=== PATIENT | male | born 1945 | race Hispanic/Latino ===

== ENCOUNTER 2018-04-27 15:02 | Inpatient (IN) | payer MEDICARE ==
[2018-04-27 16:13] LABS: BASO % 0.8 % (0.0-2.0); EOS # 0.1 K/uL (0.0-0.7); EOS % 1.4 % (0.0-4.0); HEMOGLOBIN 13.5 g/dL (12.0-18.0); LYMPH # 0.8 K/uL (1.0-4.3); MEAN CELL VOLUME 78.2 fl (80.0-94.0); MEAN CORPUSCULAR HEMOGLOBIN 26.2 pg (27.0-31.0); MEAN CORPUSCULAR HGB CONC 33.5 g/dL (33.0-37.0); MEAN PLATELET VOLUME 9.4 fl (7.2-11.7); MONO # 0.7 K/uL (0.0-0.8); MONO % 11.6 % (0.0-10.0); NEUT # 4.6 K/uL (1.8-7.0); NEUT % 73.2 % (50.0-75.0); NRBC % 0.1 % (0.0-0.0); RBC 5.16 Mil/uL (4.40-5.90); RED CELL DISTRIBUTION WIDTH 16.7 % (11.5-14.5); WHITE BLOOD COUNT 6.3 K/uL (4.8-10.8)
[2018-04-27 16:22] LABS: INR 1.3; PROTHROMBIN TIME 14.7 Seconds (9.8-13.1)
[2018-04-27 16:25] LABS: PARTIAL THROMBOPLASTIN TIME 32.2 Seconds (25.6-37.1)
[2018-04-27 16:31] LABS: URINE AMORPHOUS SEDIMENT RARE /ul (<OCC); URINE BACTERIA RARE (<OCC); URINE BILIRUBIN SMALL (NEGATIVE); URINE BLOOD NEGATIVE (NEGATIVE); URINE CALCIUM OXALATE CRYSTALS FEW /hpf (<OCC); URINE CLARITY SLIGHTY-CLOUDY (Clear); URINE COLOR AMBER (YELLOW); URINE GLUCOSE (UA) NEG (Normal); URINE LEUKOCYTE ESTERASE NEG Leu/uL (Negative); URINE PROTEIN NEGATIVE (NEGATIVE)
[2018-04-27 16:33] LABS: ALB/GLOB RATIO 0.8 (1.0-2.1); ALBUMIN 3.6 g/dL (3.5-5.0); ALT/SGPT 131 U/L (21-72); AST/SGOT 148 U/L (17-59); BLOOD UREA NITROGEN 16 mg/dl (9-20); CALCIUM 9.5 mg/dL (8.4-10.2); GFR NON-AFRICAN AMERICAN > 60; LIPASE 127 U/L (23-300)
--- NOTE | 2018-04-27 17:02 | ED PDOC ---
HPI: Male Pain Time Seen by Provider: 04/27/18 15:18 Chief Complaint (Nursing): Abdominal Pain Chief Complaint (Provider): Brown Urine History Per: Patient History/Exam Limitations: no limitations Onset/Duration Of Symptoms: Days (x1 week) Current Symptoms Are (Timing): Still Present Additional Complaint(s): 73 year old male presenting for evaluation of brown urine x1 week. Patient was sent by Dr. Goss for increasing LFTs. Patient was discharged from hospital l ast month after being admitted for acute cholecystitis. No surgical intervention was performed at the time. Patient denies any fevers, chills, vomiting, abdominal pain, diarrhea, dysuria, or hematuria. Past Medical History Reviewed: Historical Data, Nursing Documentation, Vital Signs Vital Signs: Last Vital Signs Temp 98.2 F 04/27/18 15:10 Pulse 101 H 04/27/18 15:10 Resp 20 04/27/18 15:10 BP 137/75 04/27/18 15:10 Pulse Ox 98 04/27/18 15:10 - Medical History PMH: HTN, Hypercholesterolemia, Hyperlipidemia Denies: Chronic Kidney Disease - Surgical History Surgical History: Cholecystectomy - Family History Family History: States: Unknown Family Hx - Home Medications Home Medications: Ambulatory Orders Medication Instructions Recorded Aspirin [Ecotrin] 81 mg PO DAILY 03/25/18 Atorvastatin [Lipitor] 20 mg PO HS 03/25/18 Carvedilol [Coreg] 6.25 mg PO Q12 03/25/18 Clopidogrel [Plavix] 75 mg PO DAILY 03/25/18 Glipizide [Glipizide ER] 10 mg PO DAILY 03/25/18 Lisinopril/Hydrochlorothiazide 1 tab PO DAILY 03/25/18 [Lisinopril-Hctz 20-12.5 mg Tab] amLODIPine [Norvasc] 5 mg PO DAILY 03/25/18 metFORMIN [glucOPHAGE] 850 mg PO BID 03/25/18 - Allergies Allergies/Adverse Reactions: Allergies Allergy/AdvReac Type Severity Reaction Status Date / Time No Known Allergies Allergy Verified 04/27/18 15:09 Review of Systems ROS Statement: Except As Marked, All Systems Reviewed And Found Negative Constitutional: Negative for: Fever, Chills Gastrointestinal: Negative for: Nausea, Vomiting, Abdominal Pain, Diarrhea Genitourinary Male: Positive for: Other (brown urine). Negative for: Dysuria, Hematuria Physical Exam - Reviewed Nursing Documentation Reviewed: Yes Vital Signs Reviewed: Yes - Physical Exam Appears: Positive for: Non-toxic, No Acute Distress Head Exam: Positive for: ATRAUMATIC, NORMAL INSPECTION, NORMOCEPHALIC Skin: Positive for: Normal Color, Warm, Dry. Negative for: Rash Eye Exam: Positive for: EOMI, Normal appearance, PERRL ENT: Positive for: Normal ENT Inspection Neck: Positive for: Normal, Painless ROM, Supple Cardiovascular/Chest: Positive for: Regular Rate, Rhythm. Negative for: Murmur Respiratory: Positive for: Normal Breath Sounds. Negative for: Respiratory Distress Gastrointestinal/Abdominal: Positive for: Normal Exam, Soft. Negative for: Tenderness Back: Positive for: Normal Inspection. Negative for: L CVA Tenderness, R CVA Tenderness, Vertebral Tenderness Extremity: Positive for: Normal ROM. Negative for: Deformity Neurologic/Psych: Positive for: Alert, Oriented. Negative for: Motor/Sensory Deficits - Laboratory Results Result Diagrams: 04/27/18 16:06 04/27/18 16:06 - ECG O2 Sat by Pulse Oximetry: 98 (RA) Pulse Ox Interpretation: Normal Medical Decision Making Medical Decision Making: Plan: -EKG -CMP -Urine dip -CBC -PTT/PT -CXR -Glucose, POC -Blood culture -Urine culture -Urinalysis -US Abdomen -Reevaluation Scribe Attestation: Documented by Irineo Mulligan, acting as a scribe for Daphney Spaulding MD. Provider Scribe Attestation: All medical record entries made by the Scribe were at my direction and personally dictated by me. I have reviewed the chart and agree that the record accurately reflects my personal performance of the history, physical exam, medical decision making, and the department course for this patient. I have also personally directed, reviewed, and agree with the discharge instructions and disposition. Time: 1658 -- Spoke to Dr. Walters who recommends NPO and antibiotics. Time: 1901 -- Spoke to Dr. Novoa at this time. Provider will talk to surgical endoscopist. Pt states his Lens Block Gauger is Dr. Bashir. Will consult Dr. Souza as per Dr. Felder. Scribe Attestation: Documented by Scarlet Thornton, acting as a scribe Dony Spaulding MD. Provider Scribe Attestation: All medical record entries made by the Scribe were at my direction and personally dictated by me. I have reviewed the chart and agree that the record accurately reflects my personal performance of the medical decision making for this patient. I have also personally directed, reviewed, and agree with the discharge instructions and disposition. Disposition - Disposition
--- NOTE | 2018-04-27 17:25 | RAD ---
HISTORY: Abdominal pain COMPARISON: No prior. TECHNIQUE: Chest PA and lateral FINDINGS: LINES AND TUBES: None. LUNG AND PLEURA: The lungs are well inflated and clear. No pleural effusion or pneumothorax. HEART AND MEDIASTINUM: The heart is not enlarged. The hilar and mediastinal contours are within normal limits. SKELETAL STRUCTURES: The bony structures are within normal limits for the patient's age. VISUALIZED UPPER ABDOMEN: Normal. OTHER FINDINGS: None. IMPRESSION: No active pulmonary disease.
--- NOTE | 2018-04-27 18:18 | US ---
Date of service: 04/27/2018 HISTORY: Elevated T bili COMPARISON: MRCP from 03/25/2018 TECHNIQUE: Sonographic evaluation of the right upper quadrant of the abdomen. Examination is limited due to patient body habitus. FINDINGS: LIVER: Measures 16.1 cm in length. Normal echogenicity of the liver parenchyma. The left lobe of the liver is not visualized. No intrahepatic bile duct dilatation. GALLBLADDER: The gallbladder is distended and there is a 1.7 cm stone in the neck of the gallbladder. There is no wall thickening, pericholecystic fluid or positive sonographic Lockwood's sign. COMMON BILE DUCT: Measures 9 mm. No stones. No dilatation. PANCREAS: Not well-visualized. No mass. No ductal dilatation. RIGHT KIDNEY: Measures 11.1 cm in length. Normal echogenicity. There are nonobstructing stones, the largest in the lower pole measures 1.2 cm. No hydronephrosis. There is a 4.5 x 2.4 x 4.7 cm parapelvic cyst. AORTA: No aneurysmal dilatation. IVC: Unremarkable. OTHER FINDINGS: Small right pleural effusion. IMPRESSION: Distended gallbladder and 1.7 cm stone presumably impacted in the region of the neck of the gallbladder. No sonographic evidence for acute cholecystitis. Mild dilatation of the common bile duct without sonographic evidence for choledocholithiasis. Nonobstructing stones in the right kidney, the largest in the lower pole measures 1.2 cm. 4.5 cm parapelvic cyst in the right kidney.
--- NOTE | 2018-04-27 18:58 | CP.PCM.PN ---
Subjective - Date & Time of Evaluation Date of Evaluation: 04/27/18 Time of Evaluation: 22:22 - Subjective Subjective: 73 yo with hx of CAD NIDDM presents to the ER with jaundice and dark urine Pt has had progressive increase in bilirubin over the past several days Objective - Vital Signs/Intake and Output Vital Signs (last 24 hours): Temp Pulse Resp BP Pulse Ox 98.2 F 101 H 20 137/75 98 04/27/18 15:10 04/27/18 15:10 04/27/18 15:10 04/27/18 15:10 04/27/18 17:02 - Labs Labs: 04/27/18 16:06 04/27/18 16:06 PT 14.7 Seconds (9.8-13.1) H 04/27/18 16:06 INR 1.3 04/27/18 16:06 APTT 32.2 Seconds (25.6-37.1) 04/27/18 16:06 - Respiratory Exam Respiratory Exam: NORMAL BREATHING PATTERN - Cardiovascular Exam Cardiovascular Exam: REGULAR RHYTHM - GI/Abdominal Exam GI & Abdominal Exam: Normal Bowel Sounds Assessment and Plan - Assessment and Plan (Free Text) Assessment: GB dx cystic duct stone GI Surgery IVF ABX Nephrolithiasis HX CAD NIDDM cardiology consult
[2018-04-27] MEDS ORDERED: Piperacillin/Tazobact 4.5 GM in Sodium Chloride 0.9% 100 ML IVPB STA (19:14)
--- NOTE | 2018-04-27 22:48 | CP.PCM.CON ---
History of Present Illness - History of Present Illness History of Present Illness: Surgery Consult: Dr. Novoa Pt is a 73M with PMHX significant for DM, HTN, CAD & HLD, known to our service from his previous admission last month. PT was sent to the ER by his PMD for elevated liver enzymes & dark urine. Pt states that just like his last admission, he saw his PMD in the office and his blood work was abnormal which p rompted him to be sent to the ER. Pt denies any abdominal pain, nausea/vomiting, fevers or chills. On his last admission in March, pt had an US/MRCP in the ER which showed a 1.4cm stone in the neck of the GB. Pt was admitted at the time and choledocholithiais was ruled out. Since pt was completely asymptomatic he was sent home. Pt now presents with Tbili 6.3 and continues to deny any abdominal pain or associated symptoms. An US was repeated and shows stone in the GB neck without wall thickening or pericholecystic fluid. PMHx: as listed above PSHx: pt states he had a "vein bypass" SocialHx: former smoker [id number], social EtOH, denies drugs NKDA Review of Systems - Review of Systems All systems: reviewed and no additional remarkable complaints except (as per HPI) Past Patient History - Past Medical History & Family History Past Medical History?: Yes - Past Social History Smoking Status: Former Smoker - CARDIAC Hx Hypercholesterolemia: Yes Hx Hypertension: Yes - PULMONARY Hx Respiratory Disorders: No - NEUROLOGICAL Hx Neurological Disorder: No - HEENT Hx HEENT Problems: No - RENAL Hx Chronic Kidney Disease: No - ENDOCRINE/METABOLIC Hx Endocrine Disorders: Yes Hx Diabetes Mellitus Type 2: Yes - HEMATOLOGICAL/ONCOLOGICAL Hx Blood Disorders: No - INTEGUMENTARY Hx Dermatological Problems: No - MUSCULOSKELETAL/RHEUMATOLOGICAL Hx Musculoskeletal Disorders: No Hx Falls: No - GASTROINTESTINAL Hx Gastrointestinal Disorders: No - GENITOURINARY/GYNECOLOGICAL Hx Genitourinary Disorders: No - PSYCHIATRIC Hx Psychophysiologic Disorder: No Hx Substance Use: No - SURGICAL HISTORY Hx Cholecystectomy: Yes - ANESTHESIA Hx Anesthesia: Yes Hx Anesthesia Reactions: No Hx Malignant Hyperthermia: No Meds Allergies/Adverse Reactions: Allergies Allergy/AdvReac Type Severity Reaction Status Date / Time No Known Allergies Allergy Verified 04/27/18 15:09 - Medications Medications: Current Medications Dextrose/Sodium Chloride (Dextrose 5%/0.45% Ns 1000 Ml) 1,000 mls @ 100 mls/hr IV .Q10H [facility] Stop: 04/28/18 22:40 Morphine Sulfate (Morphine) 2 mg IVP Q4 PRN PRN Reason: Pain, moderate (4-7) Ondansetron HCl (Zofran Inj) 4 mg IVP Q4 PRN PRN Reason: Nausea/Vomiting Physical Exam - Constitutional Appears: Well, No Acute Distress - Head Exam Head Exam: ATRAUMATIC, NORMOCEPHALIC - Eye Exam Eye Exam: Scleral icterus - ENT Exam ENT Exam: Mucous Membranes Moist - Respiratory Exam Respiratory Exam: NORMAL BREATHING PATTERN - Cardiovascular Exam Cardiovascular Exam: RRR - GI/Abdominal Exam GI & Abdominal Exam: absent: Distended, Guarding, Rebound, Tenderness - Extremities Exam Extremities exam: Negative for: calf tenderness - Neurological Exam Neurological exam: Alert, Oriented x3 - Skin Skin Exam: Dry, Warm Results - Vital Signs Recent Vital Signs: Last Vital Signs Temp 97.6 F 04/27/18 21:27 Pulse 74 04/27/18 21:27 Resp 18 04/27/18 21:27 BP 129/77 04/27/18 21:27 Pulse Ox 99 04/27/18 21:27 - Labs Result Diagrams: 04/27/18 16:06 04/27/18 16:06 Labs: Laboratory Results - last 24 hr 04/27/18 04/27/18 04/27/18 16:06 16:06 16:06 WBC 6.3 RBC 5.16 Hgb 13.5 Hct 40.4 MCV 78.2 L MCH 26.2 L MCHC 33.5 RDW 16.7 H Plt Count 143 MPV 9.4 Neut % (Auto) 73.2 Lymph % (Auto) 13.0 L [place] % (Auto) 11.6 H Eos % (Auto) 1.4 Baso % (Auto) 0.8 Neut # (Auto) 4.6 Lymph # (Auto) 0.8 L [place] # (Auto) 0.7 Eos # (Auto) 0.1 Baso # (Auto) 0.0 PT 14.7 H INR 1.3 APTT 32.2 Sodium 139 Potassium 3.7 Chloride 108 H Carbon Dioxide 19 L Anion Gap 16 BUN 16 Creatinine 0.9 Est GFR ( Amer) > 60 Est GFR (Non-Af Amer) > 60 POC Glucose (mg/dL) Random Glucose 141 H Calcium 9.5 Total Bilirubin 6.3 H AST 148 H ALT 131 H Alkaline Phosphatase 313 H D Total Protein 8.0 Albumin 3.6 Globulin 4.4 H Albumin/Globulin Ratio 0.8 L Lipase 127 Urine Color Urine Clarity Urine pH Ur Specific [place] Urine Protein Urine Glucose (UA) Urine Ketones Urine Blood Urine Nitrate Urine Bilirubin Urine Urobilinogen Ur Leukocyte Esterase Urine RBC (Auto) Urine Microscopic WBC Calcium Oxalate Crystal Amorphous Sediment Urine Bacteria 04/27/18 04/27/18 04/27/18 16:07 16:15 21:39 WBC RBC Hgb Hct MCV MCH MCHC RDW Plt Count MPV Neut % (Auto) Lymph % (Auto) [place] % (Auto) Eos % (Auto) Baso % (Auto) Neut # (Auto) Lymph # (Auto) [place] # (Auto) Eos # (Auto) Baso # (Auto) PT INR APTT Sodium Potassium Chloride Carbon Dioxide Anion Gap BUN Creatinine Est GFR ( Amer) Est GFR (Non-Af Amer) POC Glucose (mg/dL) 161 H 106 Random Glucose Calcium Total Bilirubin AST ALT Alkaline Phosphatase Total Protein Albumin Globulin Albumin/Globulin Ratio Lipase Urine Color Nelly Urine Clarity Slighty-cloudy Urine pH 5.0 Ur Specific [place] 1.019 Urine Protein Negative Urine Glucose (UA) Neg Urine Ketones Negative Urine Blood Negative Urine Nitrate Negative Urine Bilirubin Small Urine Urobilinogen 4.0 Ur Leukocyte Esterase Neg Urine RBC (Auto) 2 Urine Microscopic WBC 2 Calcium Oxalate Crystal Few H Amorphous Sediment Rare H Urine Bacteria Rare - Imaging and Cardiology US - abdomen Status: Image reviewed by me, Report reviewed by me Assessment & Plan - Assessment and Plan (Free Text) Assessment: 73M with cholelithiasis r/o choledocholithiais Plan: - f/u MRCP - f/u Tbili, D bili and Hep panel - will f/u with Dr. Novoa regarding operative plan Chanelle
[2018-04-27] MEDS: Dextrose 5%/0.45% NS 1,000 ML IV SCH (23:27)
[2018-04-28] MEDS: cefOXitin Sodium 1 GM in Sodium Chloride 0.9% 100 ML IVPB SCH ×3 (00:14→16:50)
[2018-04-28] MEDS: metroNIDAZOLE 500mg/100ml NS 100 ML IVPB SCH ×3 (01:53→16:49)
[2018-04-28 06:29] LABS: BASO % 0.8 % (0.0-2.0); EOS # 0.1 K/uL (0.0-0.7); EOS % 3.5 % (0.0-4.0); HEMOGLOBIN 11.9 g/dL (12.0-18.0); LYMPH # 0.6 K/uL (1.0-4.3); LYMPH % 14.6 % (20.0-40.0); MEAN CELL VOLUME 78.4 fl (80.0-94.0); MEAN CORPUSCULAR HGB CONC 33.2 g/dL (33.0-37.0); MEAN PLATELET VOLUME 9.2 fl (7.2-11.7); MONO # 0.6 K/uL (0.0-0.8); MONO % 14.5 % (0.0-10.0); NEUT # 2.8 K/uL (1.8-7.0); NEUT % 66.6 % (50.0-75.0); RBC 4.56 Mil/uL (4.40-5.90); RED CELL DISTRIBUTION WIDTH 16.8 % (11.5-14.5); WHITE BLOOD COUNT 4.3 K/uL (4.8-10.8)
[2018-04-28 06:48] LABS: ALB/GLOB RATIO 0.8 (1.0-2.1); ALBUMIN 3.1 g/dL (3.5-5.0); ALT/SGPT 115 U/L (21-72); AST/SGOT 142 U/L (17-59); BILIRUBIN,DIRECT 5.9 mg/ml (0.0-0.4); BLOOD UREA NITROGEN 13 mg/dl (9-20); CALCIUM 8.7 mg/dL (8.4-10.2); GFR NON-AFRICAN AMERICAN > 60
--- NOTE | 2018-04-28 07:35 | CP.PCM.PN ---
Subjective - Date & Time of Evaluation Date of Evaluation: 04/28/18 Time of Evaluation: 07:00 - Subjective Subjective: GENERAL SURGERY PROGRESS NOTE FOR DR. HARKINS Patient seen and examined at bedside. He is NPO for possible OR, pt reports he is hungry. No abdominal pain or any complaints. Objective - Vital Signs/Intake and Output Vital Signs (last 24 hours): Temp Pulse Resp BP Pulse Ox 97.6 F 76 20 113/69 96 04/28/18 00:24 04/28/18 00:24 04/28/18 00:24 04/28/18 00:24 04/28/18 00:24 - Medications Medications: Current Medications Amlodipine Besylate (Norvasc) 5 mg PO DAILY [facility] Atorvastatin Calcium (Lipitor) 20 mg PO HS [facility] Carvedilol (Coreg) 6.25 mg PO Q12 [facility] Hydrochlorothiazide (Microzide) 12.5 mg PO DAILY [facility] Dextrose/Sodium Chloride (Dextrose 5%/0.45% Ns 1000 Ml) 1,000 mls @ 100 mls/hr IV .Q10H [facility]EL Stop: 04/28/18 22:40 Last Admin: 04/27/18 23:27 Dose: 100 mls/hr Metronidazole (Flagyl 500mg/100ml Ns) 100 mls @ 100 mls/hr IVPB Q8 [facility]ANG[facility]; Protocol Last Admin: 04/28/18 01:53 Dose: 100 mls/hr Cefoxitin Sodium 1 gm/ Sodium (Chloride) 100 mls @ 100 mls/hr IVPB Q8 [facility]; Protocol Last Admin: 04/28/18 00:14 Dose: 100 mls/hr Lisinopril (Zestril) 20 mg PO DAILY [facility] Morphine Sulfate (Morphine) 2 mg IVP Q4 PRN PRN Reason: Pain, moderate (4-7) Ondansetron HCl (Zofran Inj) 4 mg IVP Q4 PRN PRN Reason: Nausea/Vomiting - Labs Labs: 04/28/18 05:40 04/28/18 05:40 PT 14.7 Seconds (9.8-13.1) H 04/27/18 16:06 INR 1.3 04/27/18 16:06 APTT 32.2 Seconds (25.6-37.1) 04/27/18 16:06 - Constitutional Appears: Non-toxic, No Acute Distress - Head Exam Head Exam: ATRAUMATIC, NORMAL INSPECTION - Eye Exam Eye Exam: EOMI, Scleral icterus - Respiratory Exam Respiratory Exam: NORMAL BREATHING PATTERN. absent: Respiratory Distress - Cardiovascular Exam Cardiovascular Exam: +S1, +S2 - GI/Abdominal Exam GI & Abdominal Exam: Soft. absent: Distended, Firm, Guarding, Rigid, Tenderness, Rebound - Neurological Exam Neurological Exam: Alert, Awake, Oriented x3 - Psychiatric Exam Psychiatric exam: Normal Affect, Normal Mood - Skin Skin Exam: Dry, Warm Assessment and Plan - Assessment and Plan (Free Text) Assessment: 73M with cholelithiasis and hyperbilirubinemia r/o choledocholithiais Plan: - T bili increased to 7.3, D bili 5.9 - Fu MRCP - FU Hep panel - Will discuss plan with Dr. Bright Kumar PGY-4
[2018-04-28] MEDS: Dextrose 5%/0.45% NS 1,000 ML IV SCH (08:49)
[2018-04-28] MEDS ORDERED: Patient's Own Med (Lisinopril/Hydrochlorothiazide [Lisinopril-Hctz 20-12.5 Mg Tab] 1 TAB) PO SCH (09:00)
--- NOTE | 2018-04-28 09:22 | CP.PCM.CON ---
History of Present Illness - History of Present Illness History of Present Illness: THE PATIENT IS A 73 YEAR OLD MALE ADMITTED FOR ELEVATED LFT AND DARK URINES AND IS KNOWN TO HAVE A GALLSTONE STUCK AT THE NECK OF THE GALL BLADDER. CARDIOLOGY WAS ASKED TO SEE HIM DUE TO A HISTORY OF CAD, HYPERTENSION, HYPERLIPIDEMIA AND TYPE 2 DM. HE ALSO STATES HE HAD DM. 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 HE IS CHEST PAIN FREE AND HAS NO SOB AT THE PRESENT TIME. Past Patient History - Past Medical History & Family History Past Medical History?: Yes - Past Social History Smoking Status: Former Smoker - CARDIAC Hx Hypercholesterolemia: Yes Hx Hypertension: Yes - PULMONARY Hx Respiratory Disorders: No - NEUROLOGICAL Hx Neurological Disorder: No - HEENT Hx HEENT Problems: No - RENAL Hx Chronic Kidney Disease: No - ENDOCRINE/METABOLIC Hx Endocrine Disorders: Yes Hx Diabetes Mellitus Type 2: Yes - HEMATOLOGICAL/ONCOLOGICAL Hx Blood Disorders: No - INTEGUMENTARY Hx Dermatological Problems: No - MUSCULOSKELETAL/RHEUMATOLOGICAL Hx Musculoskeletal Disorders: No Hx Falls: No - GASTROINTESTINAL Hx Gastrointestinal Disorders: No - GENITOURINARY/GYNECOLOGICAL Hx Genitourinary Disorders: No - PSYCHIATRIC Hx Psychophysiologic Disorder: No Hx Substance Use: No - SURGICAL HISTORY Hx Cholecystectomy: Yes - ANESTHESIA Hx Anesthesia: Yes Hx Anesthesia Reactions: No Hx Malignant Hyperthermia: No Meds Allergies/Adverse Reactions: Allergies Allergy/AdvReac Type Severity Reaction Status Date / Time No Known Allergies Allergy Verified 04/27/18 15:09 - Medications Medications: Current Medications Amlodipine Besylate (Norvasc) 5 mg PO DAILY [facility] Last Admin: 04/28/18 08:44 Dose: 5 mg Atorvastatin Calcium (Lipitor) 20 mg PO HS [facility] Carvedilol (Coreg) 6.25 mg PO Q12 [facility] Last Admin: 04/28/18 08:42 Dose: 6.25 mg Hydrochlorothiazide (Microzide) 12.5 mg PO DAILY [facility] Dextrose/Sodium Chloride (Dextrose 5%/0.45% Ns 1000 Ml) 1,000 mls @ 100 mls/hr IV .Q10H [facility] Stop: 04/28/18 22:40 Last Admin: 04/28/18 08:49 Dose: 100 mls/hr Metronidazole (Flagyl 500mg/100ml Ns) 100 mls @ 100 mls/hr IVPB Q8 [facility]; Protocol Last Admin: 04/28/18 08:42 Dose: 100 mls/hr Cefoxitin Sodium 1 gm/ Sodium (Chloride) 100 mls @ 100 mls/hr IVPB Q8 [facility]; Protocol Last Admin: 04/28/18 08:43 Dose: 100 mls/hr Lisinopril (Zestril) 20 mg PO DAILY [facility] Last Admin: 04/28/18 08:44 Dose: 20 mg Morphine Sulfate (Morphine) 2 mg IVP Q4 PRN PRN Reason: Pain, moderate (4-7) Ondansetron HCl (Zofran Inj) 4 mg IVP Q4 PRN PRN Reason: Nausea/Vomiting Physical Exam - Respiratory Exam Respiratory Exam: Clear to Auscultation Bilateral - Cardiovascular Exam Cardiovascular Exam: REGULAR RHYTHM, +S1, +S2 - Extremities Exam Additional comments: NO LE EDEMA - Additional Findings Additional findings: EKG NSR, OLD IWMI CXR NEGATIVE SURGICAL NOTE SEEN Results - Vital Signs Recent Vital Signs: Last Vital Signs Temp 98.5 F 04/28/18 07:56 Pulse 72 04/28/18 08:44 Resp 20 04/28/18 07:56 BP 111/68 04/28/18 08:44 Pulse Ox 97 04/28/18 07:56 - Labs Result Diagrams: 04/28/18 05:40 04/28/18 05:40 Labs: Laboratory Results - last 24 hr 04/27/18 04/27/18 04/27/18 16:06 16:06 16:06 WBC 6.3 RBC 5.16 Hgb 13.5 Hct 40.4 MCV 78.2 L MCH 26.2 L MCHC 33.5 RDW 16.7 H Plt Count 143 MPV 9.4 Neut % (Auto) 73.2 Lymph % (Auto) 13.0 L [place] % (Auto) 11.6 H Eos % (Auto) 1.4 Baso % (Auto) 0.8 Neut # (Auto) 4.6 Lymph # (Auto) 0.8 L [place] # (Auto) 0.7 Eos # (Auto) 0.1 Baso # (Auto) 0.0 PT 14.7 H INR 1.3 APTT 32.2 Sodium 139 Potassium 3.7 Chloride 108 H Carbon Dioxide 19 L Anion Gap 16 BUN 16 Creatinine 0.9 Est GFR ( Amer) > 60 Est GFR (Non-Af Amer) > 60 POC Glucose (mg/dL) Random Glucose 141 H Calcium 9.5 Phosphorus Magnesium Total Bilirubin 6.3 H Direct Bilirubin AST 148 H ALT 131 H Alkaline Phosphatase 313 H D Total Protein 8.0 Albumin 3.6 Globulin 4.4 H Albumin/Globulin Ratio 0.8 L Lipase 127 Urine Color Urine Clarity Urine pH Ur Specific [place] Urine Protein Urine Glucose (UA) Urine Ketones Urine Blood Urine Nitrate Urine Bilirubin Urine Urobilinogen Ur Leukocyte Esterase Urine RBC (Auto) Urine Microscopic WBC Calcium Oxalate Crystal Amorphous Sediment Urine Bacteria 04/27/18 04/27/18 04/27/18 16:07 16:15 21:39 WBC RBC Hgb Hct MCV MCH MCHC RDW Plt Count MPV Neut % (Auto) Lymph % (Auto) [place] % (Auto) Eos % (Auto) Baso % (Auto) Neut # (Auto) Lymph # (Auto) [place] # (Auto) Eos # (Auto) Baso # (Auto) PT INR APTT Sodium Potassium Chloride Carbon Dioxide Anion Gap BUN Creatinine Est GFR ( Amer) Est GFR (Non-Af Amer) POC Glucose (mg/dL) 161 H 106 Random Glucose Calcium Phosphorus Magnesium Total Bilirubin Direct Bilirubin AST ALT Alkaline Phosphatase Total Protein Albumin Globulin Albumin/Globulin Ratio Lipase Urine Color Nelly Urine Clarity Slighty-cloudy Urine pH 5.0 Ur Specific [place] 1.019 Urine Protein Negative Urine Glucose (UA) Neg Urine Ketones Negative Urine Blood Negative Urine Nitrate Negative Urine Bilirubin Small Urine Urobilinogen 4.0 Ur Leukocyte Esterase Neg Urine RBC (Auto) 2 Urine Microscopic WBC 2 Calcium Oxalate Crystal Few H Amorphous Sediment Rare H Urine Bacteria Rare 04/28/18 04/28/18 04/28/18 05:21 05:40 05:40 WBC 4.3 L RBC 4.56 Hgb 11.9 L Hct 35.8 MCV 78.4 L MCH 26.0 L MCHC 33.2 RDW 16.8 H Plt Count 124 L MPV 9.2 Neut % (Auto) 66.6 Lymph % (Auto) 14.6 L [place] % (Auto) 14.5 H Eos % (Auto) 3.5 Baso % (Auto) 0.8 Neut # (Auto) 2.8 Lymph # (Auto) 0.6 L [place] # (Auto) 0.6 Eos # (Auto) 0.1 Baso # (Auto) 0.0 PT INR APTT Sodium 140 Potassium 3.3 L Chloride 108 H Carbon Dioxide 23 Anion Gap 12 BUN 13 Creatinine 0.9 Est GFR ( Amer) > 60 Est GFR (Non-Af Amer) > 60 POC Glucose (mg/dL) 128 H Random Glucose 140 H Calcium 8.7 Phosphorus 2.6 Magnesium 1.8 Total Bilirubin 7.3 H Direct Bilirubin 5.9 H AST 142 H ALT 115 H Alkaline Phosphatase 263 H Total Protein 6.9 Albumin 3.1 L Globulin 3.8 Albumin/Globulin Ratio 0.8 L Lipase Urine Color Urine Clarity Urine pH Ur Specific [place] Urine Protein Urine Glucose (UA) Urine Ketones Urine Blood Urine Nitrate Urine Bilirubin Urine Urobilinogen Ur Leukocyte Esterase Urine RBC (Auto) Urine Microscopic WBC Calcium Oxalate Crystal Amorphous Sediment Urine Bacteria Assessment & Plan - Assessment and Plan (Free Text) Assessment: ELEVATED LFT WITH STONE IN THE NECK OF THE GB CAD HYPERTENSION HYPERLIPIDEMIA TYPE 2 DM Plan: CONTINUE CARVEDILOL, AMLODIPINE, LISINOPRIL, HCTZ, ATORVASTATIN AND ANTIBIOTICS FOR MRCP ASPIRIN AND CLOPIDOGREL HELD PRIOR TO ANY POSSIBLE SURGERY
--- NOTE | 2018-04-28 09:52 | CARD ---
APPROVED REPORT Date of service: 04/27/2018 EKG Measurement Heart [id number] <Conclusion> Normal sinus rhythm Inferior infarct, age undetermined Abnormal ECG
[2018-04-28 12:14] LABS: HEPATITIS B SURFACE AG Negative (NEGATIVE)
[2018-04-28 12:20] LABS: HEPATITIS A IGM NEGATIVE (NEGATIVE); HEPATITIS B CORE AB NEGATIVE (NEGATIVE)
[2018-04-28 12:32] LABS: HEPATITIS C ANTIBODY NEGATIVE (NEGATIVE)
--- NOTE | 2018-04-28 15:12 | CP.PCM.HP ---
History of Present Illness - History of Present Illness History of Present Illness: 73 yo with hx of CAD NIDDM admitted with jaundice and dark urine Pt has had progressive increase in bilirubin on his labs over the past several days Present on Admission - Present on Admission Any Indicators Present on Admission: No Past Patient History - Past Medical History & Family History Past Medical History?: Yes - Past Social History Smoking Status: Former Smoker - CARDIAC Hx Hypercholesterolemia: Yes Hx Hypertension: Yes - PULMONARY Hx Respiratory Disorders: No - NEUROLOGICAL Hx Neurological Disorder: No - HEENT Hx HEENT Problems: No - RENAL Hx Chronic Kidney Disease: No - ENDOCRINE/METABOLIC Hx Endocrine Disorders: Yes Hx Diabetes Mellitus Type 2: Yes - HEMATOLOGICAL/ONCOLOGICAL Hx Blood Disorders: No - INTEGUMENTARY Hx Dermatological Problems: No - MUSCULOSKELETAL/RHEUMATOLOGICAL Hx Musculoskeletal Disorders: No Hx Falls: No - GASTROINTESTINAL Hx Gastrointestinal Disorders: No - GENITOURINARY/GYNECOLOGICAL Hx Genitourinary Disorders: No - PSYCHIATRIC Hx Psychophysiologic Disorder: No Hx Substance Use: No - SURGICAL HISTORY Hx Cholecystectomy: Yes - ANESTHESIA Hx Anesthesia: Yes Hx Anesthesia Reactions: No Hx Malignant Hyperthermia: No Meds Allergies/Adverse Reactions: Allergies Allergy/AdvReac Type Severity Reaction Status Date / Time No Known Allergies Allergy Verified 04/27/18 15:09 Physical Exam - Respiratory Exam Respiratory Exam: NORMAL BREATHING PATTERN - Cardiovascular Exam Cardiovascular Exam: REGULAR RHYTHM - GI/Abdominal Exam GI & Abdominal Exam: Normal Bowel Sounds Results - Vital Signs Recent Vital Signs: Last Vital Signs Temp 98.5 F 04/28/18 07:56 Pulse 72 04/28/18 08:44 Resp 20 04/28/18 07:56 BP 99/62 L 04/28/18 13:36 Pulse Ox 97 04/28/18 07:56 - Labs Result Diagrams: 04/28/18 05:40 04/28/18 05:40 Labs: Laboratory Results - last 24 hr 04/27/18 04/27/18 04/27/18 16:06 16:06 16:06 WBC 6.3 RBC 5.16 Hgb 13.5 Hct 40.4 MCV 78.2 L MCH 26.2 L MCHC 33.5 RDW 16.7 H Plt Count 143 MPV 9.4 Neut % (Auto) 73.2 Lymph % (Auto) 13.0 L Bennett % (Auto) 11.6 H Eos % (Auto) 1.4 Baso % (Auto) 0.8 Neut # (Auto) 4.6 Lymph # (Auto) 0.8 L Bennett # (Auto) 0.7 Eos # (Auto) 0.1 Baso # (Auto) 0.0 PT 14.7 H INR 1.3 APTT 32.2 Sodium 139 Potassium 3.7 Chloride 108 H Carbon Dioxide 19 L Anion Gap 16 BUN 16 Creatinine 0.9 Est GFR ( Amer) > 60 Est GFR (Non-Af Amer) > 60 POC Glucose (mg/dL) Random Glucose 141 H Calcium 9.5 Phosphorus Magnesium Total Bilirubin 6.3 H Direct Bilirubin AST 148 H ALT 131 H Alkaline Phosphatase 313 H D Total Protein 8.0 Albumin 3.6 Globulin 4.4 H Albumin/Globulin Ratio 0.8 L Lipase 127 Urine Color Urine Clarity Urine pH Ur Specific [place] Urine Protein Urine Glucose (UA) Urine Ketones Urine Blood Urine Nitrate Urine Bilirubin Urine Urobilinogen Ur Leukocyte Esterase Urine RBC (Auto) Urine Microscopic WBC Calcium Oxalate Crystal Amorphous Sediment Urine Bacteria Hepatitis A IgM Ab Hep Bs Antigen Hep B Core IgM Ab Hepatitis C Antibody 04/27/18 04/27/18 04/27/18 16:07 16:15 21:39 WBC RBC Hgb Hct MCV MCH MCHC RDW Plt Count MPV Neut % (Auto) Lymph % (Auto) Bennett % (Auto) Eos % (Auto) Baso % (Auto) Neut # (Auto) Lymph # (Auto) Bennett # (Auto) Eos # (Auto) Baso # (Auto) PT INR APTT Sodium Potassium Chloride Carbon Dioxide Anion Gap BUN Creatinine Est GFR ( Amer) Est GFR (Non-Af Amer) POC Glucose (mg/dL) 161 H 106 Random Glucose Calcium Phosphorus Magnesium Total Bilirubin Direct Bilirubin AST ALT Alkaline Phosphatase Total Protein Albumin Globulin Albumin/Globulin Ratio Lipase Urine Color Nelly Urine Clarity Slighty-cloudy Urine pH 5.0 Ur Specific [place] 1.019 Urine Protein Negative Urine Glucose (UA) Neg Urine Ketones Negative Urine Blood Negative Urine Nitrate Negative Urine Bilirubin Small Urine Urobilinogen 4.0 Ur Leukocyte Esterase Neg Urine RBC (Auto) 2 Urine Microscopic WBC 2 Calcium Oxalate Crystal Few H Amorphous Sediment Rare H Urine Bacteria Rare Hepatitis A IgM Ab Hep Bs Antigen Hep B Core IgM Ab Hepatitis C Antibody 04/28/18 04/28/18 04/28/18 05:21 05:40 05:40 WBC 4.3 L RBC 4.56 Hgb 11.9 L Hct 35.8 MCV 78.4 L MCH 26.0 L MCHC 33.2 RDW 16.8 H Plt Count 124 L MPV 9.2 Neut % (Auto) 66.6 Lymph % (Auto) 14.6 L Bennett % (Auto) 14.5 H Eos % (Auto) 3.5 Baso % (Auto) 0.8 Neut # (Auto) 2.8 Lymph # (Auto) 0.6 L Bennett # (Auto) 0.6 Eos # (Auto) 0.1 Baso # (Auto) 0.0 PT INR APTT Sodium 140 Potassium 3.3 L Chloride 108 H Carbon Dioxide 23 Anion Gap 12 BUN 13 Creatinine 0.9 Est GFR ( Amer) > 60 Est GFR (Non-Af Amer) > 60 POC Glucose (mg/dL) 128 H Random Glucose 140 H Calcium 8.7 Phosphorus 2.6 Magnesium 1.8 Total Bilirubin 7.3 H Direct Bilirubin 5.9 H AST 142 H ALT 115 H Alkaline Phosphatase 263 H Total Protein 6.9 Albumin 3.1 L Globulin 3.8 Albumin/Globulin Ratio 0.8 L Lipase Urine Color Urine Clarity Urine pH Ur Specific [place] Urine Protein Urine Glucose (UA) Urine Ketones Urine Blood Urine Nitrate Urine Bilirubin Urine Urobilinogen Ur Leukocyte Esterase Urine RBC (Auto) Urine Microscopic WBC Calcium Oxalate Crystal Amorphous Sediment Urine Bacteria Hepatitis A IgM Ab Hep Bs Antigen Hep B Core IgM Ab Hepatitis C Antibody 04/28/18 04/28/18 05:40 10:49 WBC RBC Hgb Hct MCV MCH MCHC RDW Plt Count MPV Neut % (Auto) Lymph % (Auto) Bennett % (Auto) Eos % (Auto) Baso % (Auto) Neut # (Auto) Lymph # (Auto) Bennett # (Auto) Eos # (Auto) Baso # (Auto) PT INR APTT Sodium Potassium Chloride Carbon Dioxide Anion Gap BUN Creatinine Est GFR ( Amer) Est GFR (Non-Af Amer) POC Glucose (mg/dL) 146 H Random Glucose Calcium Phosphorus Magnesium Total Bilirubin Direct Bilirubin AST ALT Alkaline Phosphatase Total Protein Albumin Globulin Albumin/Globulin Ratio Lipase Urine Color Urine Clarity Urine pH Ur Specific [place] Urine Protein Urine Glucose (UA) Urine Ketones Urine Blood Urine Nitrate Urine Bilirubin Urine Urobilinogen Ur Leukocyte Esterase Urine RBC (Auto) Urine Microscopic WBC Calcium Oxalate Crystal Amorphous Sediment Urine Bacteria Hepatitis A IgM Ab Negative Hep Bs Antigen Negative Hep B Core IgM Ab Negative Hepatitis C Antibody Negative Assessment & Plan - Assessment and Plan (Free Text) Assessment: GB dx cystic duct stone GI Surgery IVF ABX MRCP Nephrolithiasis HX CAD NIDDM cardiology consult - Date & Time Date: 04/28/18 Time: 22:22
[2018-04-28] MEDS ORDERED: Sodium Chloride 0.9% 50 ML IV ONE (15:48)
[2018-04-28] MEDS ORDERED: Gadodiamide 287 MG/ML VIAL (15ML) IV ONE (15:48)
--- NOTE | 2018-04-28 16:27 | CP.PCM.PN ---
Subjective - Date & Time of Evaluation Date of Evaluation: 04/28/18 Time of Evaluation: 12:00 - Subjective Subjective: no overnight events Objective - Vital Signs/Intake and Output Vital Signs (last 24 hours): Temp Pulse Resp BP Pulse Ox 98.5 F 72 20 99/62 L 97 04/28/18 07:56 04/28/18 08:44 04/28/18 07:56 04/28/18 13:36 04/28/18 07:56 - Medications Medications: Current Medications Amlodipine Besylate (Norvasc) 5 mg PO DAILY [facility] Last Admin: 04/28/18 08:44 Dose: 5 mg Atorvastatin Calcium (Lipitor) 20 mg PO HS [facility] Carvedilol (Coreg) 6.25 mg PO Q12 [facility] Last Admin: 04/28/18 08:42 Dose: 6.25 mg Hydrochlorothiazide (Microzide) 12.5 mg PO DAILY [facility] Dextrose/Sodium Chloride (Dextrose 5%/0.45% Ns 1000 Ml) 1,000 mls @ 100 mls/hr IV .Q10H [facility] Stop: 04/28/18 22:40 Last Admin: 04/28/18 08:49 Dose: 100 mls/hr Metronidazole (Flagyl 500mg/100ml Ns) 100 mls @ 100 mls/hr IVPB Q8 [facility]; Protocol Last Admin: 04/28/18 08:42 Dose: 100 mls/hr Cefoxitin Sodium 1 gm/ Sodium (Chloride) 100 mls @ 100 mls/hr IVPB Q8 [facility]; Protocol Last Admin: 04/28/18 08:43 Dose: 100 mls/hr Potassium Chloride (Potassium Chloride 10 Meq/100 Ml) 100 mls @ 100 mls/hr IVPB Q1 [facility] Stop: 04/28/18 17:59 Lisinopril (Zestril) 20 mg PO DAILY [facility] Last Admin: 04/28/18 08:44 Dose: 20 mg Morphine Sulfate (Morphine) 2 mg IVP Q4 PRN PRN Reason: Pain, moderate (4-7) Ondansetron HCl (Zofran Inj) 4 mg IVP Q4 PRN PRN Reason: Nausea/Vomiting - Labs Labs: 04/28/18 05:40 04/28/18 05:40 PT 14.7 Seconds (9.8-13.1) H 04/27/18 16:06 INR 1.3 04/27/18 16:06 APTT 32.2 Seconds (25.6-37.1) 04/27/18 16:06 - Eye Exam Eye Exam: Scleral icterus - Neck Exam Neck Exam: Normal Inspection - Respiratory Exam Respiratory Exam: Clear to Ausculation Bilateral, NORMAL BREATHING PATTERN - Cardiovascular Exam Cardiovascular Exam: REGULAR RHYTHM - GI/Abdominal Exam GI & Abdominal Exam: Soft, Normal Bowel Sounds Assessment and Plan - Assessment and Plan (Free Text) Assessment: 73 yo male with gb stones surgical eval appreciated
[2018-04-28] MEDS: Potassium CL 10mEq/100ml 100 ML IVPB SCH (20:56)
[2018-04-29] MEDS: cefOXitin Sodium 1 GM in Sodium Chloride 0.9% 100 ML IVPB SCH ×2 (00:10→11:11)
[2018-04-29] MEDS: metroNIDAZOLE 500mg/100ml NS 100 ML IVPB SCH ×3 (01:26→16:33)
[2018-04-29] MEDS: Potassium CL 10mEq/100ml 100 ML IVPB SCH (02:38)
--- NOTE | 2018-04-29 03:13 | CON ---
DATE: 04/28/2018 REASON FOR CONSULTATION: Elevated LFTs and jaundice. HISTORY OF PRESENT ILLNESS: This is a 73-year-old male with history of diabetes, hyperlipidemia who came in yesterday for worsening jaundice and dark urine along with discomfort. Had the same exact issues few months ago, here . Now comes in for worsening jaundice. No fever, chills, nausea, or vomiting. Currently lying in bed comfortable, in no apparent distress. PAST MEDICAL HISTORY: As above. PAST SURGICAL HISTORY: Above. MEDICATIONS: Have been reviewed. REVIEW OF SYSTEMS: All other systems have been reviewed and negative apart from the HPI. PHYSICAL EXAMINATION: VITAL SIGNS: In the hospital, grossly unremarkable. GENERAL: Pleasant elderly female, lying in bed comfortably, in no apparent distress. HEENT: Normocephalic and atraumatic. Eyes pupils are equally reactive to light bilaterally. There is some conjunctival icterus. No pallor. NECK: Supple. Normal range of motion. No lymphadenopathy appreciated. LUNGS: Coarse breath sounds bilaterally. HEART: S1 and S2. Regular rate and rhythm. No murmurs appreciated. ABDOMEN: Soft. Nontender. Bowel sounds present. Discomfort in the right upper quadrant. No rebound. No guarding. RECTAL: Deferred. EXTREMITIES: Pulses felt bilaterally. SKIN: Warm, dry, and intact. NEUROLOGIC: A and O x3. LABORATORY DATA: All labs and radiology have been reviewed. WBC is 6, hemoglobin 13.5, bilirubin 6.3, AST 148, ALT 131, alk phos 313. Abdominal ultrasound shows persistent stone in the neck of the gallbladder and distended gallbladder. No evidence of choledocholithiasis. ASSESSMENT AND PLAN: This is a 73-year-old man with antibiotics for now. Surgical consult will be appreciated. Thank you for the consult. Roman Walters MD/ PhD cc: Marty Roland MD
[2018-04-29 08:34] LABS: MEAN CORPUSCULAR HEMOGLOBIN 26.3 pg (27.0-31.0); MEAN CORPUSCULAR HGB CONC 33.4 g/dL (33.0-37.0); RBC 4.94 Mil/uL (4.40-5.90); RED CELL DISTRIBUTION WIDTH 16.9 % (11.5-14.5); WHITE BLOOD COUNT 4.2 K/uL (4.8-10.8)
--- NOTE | 2018-04-29 08:44 | CP.PCM.PN ---
Subjective - Date & Time of Evaluation Date of Evaluation: 04/29/18 Time of Evaluation: 08:00 - Subjective Subjective: NO CHEST PAIN OR SOB Objective - Vital Signs/Intake and Output Vital Signs (last 24 hours): Temp Pulse Resp BP Pulse Ox 97.5 F L 65 19 135/76 99 04/29/18 08:05 04/29/18 08:05 04/29/18 08:05 04/29/18 08:05 04/29/18 08:05 - Medications Medications: Current Medications Amlodipine Besylate (Norvasc) 5 mg PO DAILY [facility] Last Admin: 04/28/18 08:44 Dose: 5 mg Atorvastatin Calcium (Lipitor) 20 mg PO HS [facility] Last Admin: 04/28/18 21:04 Dose: 20 mg Carvedilol (Coreg) 6.25 mg PO Q12 [facility] Last Admin: 04/28/18 21:04 Dose: 6.25 mg Hydrochlorothiazide (Microzide) 12.5 mg PO DAILY [facility] Last Admin: 04/28/18 17:03 Dose: 12.5 mg Metronidazole (Flagyl 500mg/100ml Ns) 100 mls @ 100 mls/hr IVPB Q8 [facility]; Yannick col Last Admin: 04/29/18 01:26 Dose: 100 mls/hr Cefoxitin Sodium 1 gm/ Sodium (Chloride) 100 mls @ 100 mls/hr IVPB Q8 [facility]; Protocol Last Admin: 04/29/18 00:10 Dose: 100 mls/hr Lisinopril (Zestril) 20 mg PO DAILY [facility] Last Admin: 04/28/18 08:44 Dose: 20 mg Morphine Sulfate (Morphine) 2 mg IVP Q4 PRN PRN Reason: Pain, moderate (4-7) Ondansetron HCl (Zofran Inj) 4 mg IVP Q4 PRN PRN Reason: Nausea/Vomiting - Labs Labs: 04/29/18 08:22 04/28/18 05:40 PT 14.7 Seconds (9.8-13.1) H 04/27/18 16:06 INR 1.3 04/27/18 16:06 APTT 32.2 Seconds (25.6-37.1) 04/27/18 16:06 - Respiratory Exam Respiratory Exam: Clear to Ausculation Bilateral - Cardiovascular Exam Cardiovascular Exam: REGULAR RHYTHM, +S1, +S2 - Extremities Exam Additional comments: NO LE EDEMA - Additional Findings Additional findings: RECORDS FROM [facility] OBTAINED AND PATIENT HAD AN OLD IWMI AND HAD A PHARMACOLOGICAL STRESS TEST IN 2017 THAT SHOWED INFERIOR WALL SCARRING WITH PERIINFARCT ISCHEMIA BUT THE OTHER ZONES OF THE LV MYOCARDIUM HAD GOOD PERFUSION LVEF ON MUGASCAN AND ECHO WAS 43% MRCP REPORT PENDING Assessment and Plan - Assessment and Plan (Free Text) Assessment: CAD-STABLE HYPERTENSION HYPERLIPIDEMIA STONE IN GALLBLADDER NECK Plan: CONTINUE CARVEDILOL, LISINOPRIL, ATORVASTATIN, AMLODIPINE AND ANTIBIOTICS PER SURGERY
[2018-04-29 08:46] LABS: ALB/GLOB RATIO 0.8 (1.0-2.1); ALBUMIN 3.4 g/dL (3.5-5.0); ALT/SGPT 129 U/L (21-72); AST/SGOT 151 U/L (17-59); BLOOD UREA NITROGEN 11 mg/dl (9-20); CALCIUM 9.3 mg/dL (8.4-10.2); GFR NON-AFRICAN AMERICAN > 60
--- NOTE | 2018-04-29 08:46 | CP.PCM.PN ---
Subjective - Date & Time of Evaluation Date of Evaluation: 04/29/18 Time of Evaluation: 08:40 - Subjective Subjective: Surgery: Dr. Novoa Pt seen & examined, no acute overnight events. States he feels well and continues to deny abdominal pain. He is tolerating his diet and denies nausea/vomiting, fevers/chills. Objective - Vital Signs/Intake and Output Vital Signs (last 24 hours): Temp Pulse Resp BP Pulse Ox 97.5 F L 65 19 135/76 99 04/29/18 08:05 04/29/18 08:05 04/29/18 08:05 04/29/18 08:05 04/29/18 08:05 - Medications Medications: Current Medications Amlodipine Besylate (Norvasc) 5 mg PO DAILY [facility] Last Admin: 04/28/18 08:44 Dose: 5 mg Atorvastatin Calcium (Lipitor) 20 mg PO HS [facility] Last Admin: 04/28/18 21:04 Dose: 20 mg Carvedilol (Coreg) 6.25 mg PO Q12 [facility] Last Admin: 04/28/18 21:04 Dose: 6.25 mg Hydrochlorothiazide (Microzide) 12.5 mg PO DAILY [facility] Last Admin: 04/28/18 17:03 Dose: 12.5 mg Metronidazole (Flagyl 500mg/100ml Ns) 100 mls @ 100 mls/hr IVPB Q8 [facility]; Protocol Last Admin: 04/29/18 01:26 Dose: 100 mls/hr Cefoxitin Sodium 1 gm/ Sodium (Chloride) 100 mls @ 100 mls/hr IVPB Q8 [facility]; Protocol Last Admin: 04/29/18 00:10 Dose: 100 mls/hr Lisinopril (Zestril) 20 mg PO DAILY [facility] Last Admin: 04/28/18 08:44 Dose: 20 mg Morphine Sulfate (Morphine) 2 mg IVP Q4 PRN PRN Reason: Pain, moderate (4-7) Ondansetron HCl (Zofran Inj) 4 mg IVP Q4 PRN PRN Reason: Nausea/Vomiting - Labs Labs: 04/29/18 08:22 04/28/18 05:40 PT 14.7 Seconds (9.8-13.1) H 04/27/18 16:06 INR 1.3 04/27/18 16:06 APTT 32.2 Seconds (25.6-37.1) 04/27/18 16:06 - Constitutional Appears: Well, No Acute Distress - Head Exam Head Exam: ATRAUMATIC, NORMOCEPHALIC - Eye Exam Eye Exam: Normal appearance - ENT Exam ENT Exam: Mucous Membranes Moist - Respiratory Exam Respiratory Exam: NORMAL BREATHING PATTERN - Cardiovascular Exam Cardiovascular Exam: RRR - GI/Abdominal Exam GI & Abdominal Exam: Soft. absent: Distended, Tenderness - Neurological Exam Neurological Exam: Alert, Awake, Oriented x3 - Skin Skin Exam: Dry, Warm Assessment and Plan - Assessment and Plan (Free Text) Assessment: 73M with cholelithiasis & r/o choledocholithiasis Plan: - MRCP done; will f/u official read - plan for OR wednesday for cholecystectomy - cont to monitor tbili & other liver enzymes - d/w Dr. Bright Roca
[2018-04-29] MEDS ORDERED: Iohexol 300 100 ML IJ ONE (10:30)
[2018-04-29] MEDS ORDERED: Sodium Chloride 0.9% 50 ML IV ONE (10:30)
--- NOTE | 2018-04-29 11:50 | PN ---
DATE: 04/29/2018 SUBJECTIVE: The patient seen and examined. The patient is seen for Dr. Bautista while he is away. The patient remains in regular medical floor. The patient feels okay. Denies any chest pain, shortness of breath, abdominal pain, nausea, vomiting, or diarrhea. No specific issue reported by nursing staff. Surgery and Gastroenterology followup and intervention noted and appreciated. PHYSICAL EXAMINATION: GENERAL: The patient is in no acute distress. VITAL SIGNS: Stable. HEART: S1 and S2, normal, regular. LUNGS: Good bilateral air exchange. ABDOMEN: Soft, nontender. No organomegaly. No fluid. Bowel sounds are present and normal. No sign of acute abdomen. No guarding. No rigidity. No rebound. EXTREMITIES: No edema. No calf swelling. No tenderness. No acute ischemia. [employer]: Exam is essentially unchanged. There is no sign of any acute gross focal, motor or sensory neurological deficit. DIAGNOSTIC DATA: Available . ASSESSMENT AND PLAN: Overall, the patient's general medical condition is stable. Ultrasound does show impacted gallstones in gallbladder neck, and the patient's bilirubin remains elevated. Plan as ordered. The patient's plan discussed with the patient. Viraj Ba MD
--- NOTE | 2018-04-29 13:34 | MRI ---
Date of service: 04/28/2018 PROCEDURE: Magnetic Resonance Cholangiopancreatography HISTORY: COMPARISON: MRCP 03/25/2018 and limited abdomen ultrasound 04/27/2018. TECHNIQUE: Multiplanar, multisequence MR images of the abdomen were obtained, including heavily T2 weighted MRCP images of the biliary system. Rotating maximum intensity projection images of the biliary system were generated. FINDINGS: MRCP: Examination reveals reiteration of markedly dilated left sided intrahepatic biliary tree. There is prominent dilatation of the common hepatic and central intrahepatic ducts of the right lobe with medium and peripheral branches normal in caliber. The common hepatic duct is dilated to 17.9 cm with questionable small intraluminal filling defects. The main right hepatic bile duct appears dilated to 11.7 mm. The main left hepatic duct measures 11.6 cm caliber. Etiology for this biliary tree dilatation appears to be a very ill defined lesion at the posterior medial left lobe of the liver which is increased in long TR signal and marginally diminished in T1 signal which is best seen in the early contrast enhanced fat-suppressed T1 series (07/20/2000). There is relatively fast washout in the central portions of the lesion with somewhat persistent appearing enhances seen in the periphery of the mass. The mass measures at least 5.3 x 3.9 cm (transverse by anteroposterior dimensions) in in the T1 early enhancement series but is likely larger than this. It appears to deform several left-sided intrahepatic dilated ducts and invasion into a few ducts is difficult to completely exclude. A limited portion of the medial right lobe liver may be involved by the mass. Findings suspicious for hepatocellular carcinoma obstructing the intrahepatic bile ducts though a cholangiocarcinoma not completely excluded. Metastatic disease also a possibility. While the common bile duct is not significantly dilated, it changes caliber abruptly from a few mm up to 5 mm at the junction of the proximal and middle thirds with the proximal segment minimal in caliber. This may be a function of tumor encasement. The gallbladder is grossly distended once again with a neck calculus impacted. No mural abnormality appreciated throughout. No pericholecystic fluid collection evident. LIVER: As above. GALLBLADDER: As above. SPLEEN: Unremarkable. PANCREAS: Unremarkable. ADRENALS: Unremarkable. KIDNEYS: Bilateral renal cysts reiterated including a large right midpole parapelvic/intrarenal cyst measuring 6.0 x 3.5 cm. A small simple left renal cyst measures 1 cm once again. No solid enhancing mass bilaterally. AORTA: No aneurysm. ASCITES: None. OTHER FINDINGS: None. 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 Intrahepatic biliary dilatation appears stable. Please see discussion above. Primary consideration is primary hepatic neoplasm including appendiceal adenocarcinoma though cholangiocarcinoma is a possibility as well as metastatic disease. There is possible occasion of the proximal segment common hepatic duct. Prominent gallbladder dilatation remains without focal inflammatory change presumably secondary to impacted calculus at the neck. Please see discussion above as well as result from separate CT of the liver subsequently performed 04/29/2018.
--- NOTE | 2018-04-29 13:49 | CT ---
Date of service: 04/29/2018 PROCEDURE: CT Abdomen and Pelvis with and without intravenous contrast HISTORY: r/o biliary mass COMPARISON: None. TECHNIQUE: Axial images of the abdomen were obtained in the pre contrast, hepatic arterial and portal venous phases of enhancement. Coronal and sagittal reformats were generated. Contrast dose: 100 mL Omnipaque 300 Radiation dose: Total exam DLP = 1545.92 mGy-cm. This CT exam was performed using one or more of the following dose reduction techniques: Automated exposure control, adjustment of the mA and/or kV according to patient size, and/or use of iterative reconstruction technique. FINDINGS: LOWER THORAX: Unremarkable. LIVER: Normal size and contour. There is a mass in the left lobe of the liver enhancing 1 portal venous phase images and showing only faint enhancement on a patent arterial phase images. The mass is irregular in shape and measures roughly 2.5 x 3.4 x 4.1 cm. However, there is a band like extension of enhancing tissue extending towards the lo hepatis, to the bifurcation of the common hepatic duct, originating from this enhancing mass. This extends along the course of the left hepatic duct. There is central low attenuation seen within the mass on portal venous phase images suggestive of central necrosis. There is no other intrahepatic mass identified. There is intrahepatic biliary dilatation, greater in the left lobe of the liver than in the right lobe. No definite intra ductal extension of this mass is demonstrated. However, the extension along the common hepatic duct towards the lo hepatis raises concern for a biliary neoplasm. GALLBLADDER AND BILE DUCTS: No cholelithiasis or mural thickening. PANCREAS: Unremarkable. No gross lesion or ductal dilatation. SPLEEN: Mild splenomegaly. The spleen measures approximately 14.5 cm in greatest dimension. ADRENALS: Unremarkable. No mass. KIDNEYS AND URETERS: Right hydronephrosis with no hydroureter. Probable UPJ. 10 mm nonobstructing mid right renal calculus and additional smaller nonobstructing lower pole calculi. No left renal calculus. No renal mass. VASCULATURE: Unremarkable. No aortic aneurysm. BOWEL: Sigmoid diverticulosis. Scattered colonic diverticulae elsewhere. No evidence of diverticulitis. No bowel obstruction. APPENDIX: Normal appendix. PERITONEUM: Unremarkable. No free fluid. No free air. LYMPH NODES: There are shotty celiac axis nodes, subcentimeter in diameter. There is no zara retroperitoneal or pelvic lymphadenopathy. BLADDER: Unremarkable. REPRODUCTIVE: Normal prostate BONES: No acute fracture. OTHER FINDINGS: None. IMPRESSION: Irregular mass in left lobe of liver extending along the course of the left hepatic duct towards the common hepatic duct with intrahepatic biliary obstruction, left lobe greater than right lobe. Possible biliary neoplasm versus hepatocellular neoplasm, or possibly metastasis. Some central necrosis is identified within the body of the mass. Additional minor findings as above.
[2018-04-29] MEDS: cefOXitin IV 1 gm in Dextrose 1 GM/50 ML BAG IVPB SCH (17:53)
[2018-04-30] MEDS: metroNIDAZOLE 500mg/100ml NS 100 ML IVPB SCH ×3 (00:05→16:15)
[2018-04-30] MEDS: cefOXitin IV 1 gm in Dextrose 1 GM/50 ML BAG IVPB SCH ×4 (01:59→17:20)
--- NOTE | 2018-04-30 08:01 | CP.PCM.PN ---
Subjective - Date & Time of Evaluation Date of Evaluation: 04/30/18 Time of Evaluation: 07:57 - Subjective Subjective: Surgery: Dr. Novoa Pt seen and examined. No acute overnight events. He continues to be asymptomatic and denies abdominal pain or any other complaints at this time. Tolerating diet and denies N/V, F/C. Objective - Vital Signs/Intake and Output Vital Signs (last 24 hours): Temp Pulse Resp BP Pulse Ox 97.9 F 73 19 110/65 98 04/30/18 07:44 04/30/18 07:44 04/30/18 07:44 04/30/18 07:44 04/30/18 07:44 - Medications Medications: Current Medications Amlodipine Besylate (Norvasc) 5 mg PO DAILY [facility] Last Admin: 04/29/18 08:47 Dose: 5 mg Atorvastatin Calcium (Lipitor) 20 mg PO HS [facility] Last Admin: 04/29/18 21:29 Dose: 20 mg Carvedilol (Coreg) 6.25 mg PO Q12 [facility] Last Admin: 04/29/18 21:28 Dose: 6.25 mg Hydrochlorothiazide (Microzide) 12.5 mg PO DAILY [facility] Last Admin: 04/29/18 08:47 Dose: 12.5 mg Metronidazole (Flagyl 500mg/100ml Ns) 100 mls @ 100 mls/hr IVPB Q8 [facility]; Protocol Last Admin: 04/30/18 00:05 Dose: 100 mls/hr Cefoxitin Sodium (Mefoxin Iv 1 Gm Duplex) 1 gm in 50 mls @ 50 mls/hr IVPB Q8 [facility]; Protocol Last Admin: 04/30/18 01:59 Dose: 50 mls/hr Lisinopril (Zestril) 20 mg PO DAILY [facility] Last Admin: 04/29/18 08:47 Dose: 20 mg Morphine Sulfate (Morphine) 2 mg IVP Q4 PRN PRN Reason: Pain, moderate (4-7) Ondansetron HCl (Zofran Inj) 4 mg IVP Q4 PRN PRN Reason: Nausea/Vomiting - Labs Labs: 04/29/18 08:22 04/29/18 08:22 PT 14.7 Seconds (9.8-13.1) H 04/27/18 16:06 INR 1.3 04/27/18 16:06 APTT 32.2 Seconds (25.6-37.1) 04/27/18 16:06 - Constitutional Appears: Well, No Acute Distress - Head Exam Head Exam: ATRAUMATIC, NORMOCEPHALIC - Eye Exam Eye Exam: Scleral icterus - ENT Exam ENT Exam: Mucous Membranes Moist - Respiratory Exam Respiratory Exam: NORMAL BREATHING PATTERN - Cardiovascular Exam Cardiovascular Exam: RRR - GI/Abdominal Exam GI & Abdominal Exam: Soft. absent: Guarding, Tenderness, Rebound - Neurological Exam Neurological Exam: Alert, Awake, Oriented x3 - Skin Skin Exam: Dry, Warm Assessment and Plan - Assessment and Plan (Free Text) Assessment: 73M with asymptomatic cholelithiasis & possible biliary vs liver mass as per CT/MRCP findings Plan: - pt will need further workup with ERCP/EUS or IR guided biopsy of mass seen on CT - no plan for surgical intervention at this time until further diagnosis/workup - f/u GI recs - d/w Dr. Bright Roca
[2018-04-30] MEDS ORDERED: Dextrose 5%/0.45% NS 1,000 ML IV SCH (12:30)
--- NOTE | 2018-04-30 12:46 | CP.PCM.PN ---
Subjective - Date & Time of Evaluation Date of Evaluation: 04/30/18 Time of Evaluation: 11:20 - Subjective Subjective: NO CHEST PAIN OR SOB Objective - Vital Signs/Intake and Output Vital Signs (last 24 hours): Temp Pulse Resp BP Pulse Ox 97.9 F 73 19 110/65 98 04/30/18 07:44 04/30/18 08:56 04/30/18 07:44 04/30/18 08:56 04/30/18 07:44 - Medications Medications: Current Medications Amlodipine Besylate (Norvasc) 5 mg PO DAILY [facility] Last Admin: 04/30/18 08:56 Dose: 5 mg Atorvastatin Calcium (Lipitor) 20 mg PO HS [facility] Last Admin: 04/29/18 21:29 Dose: 20 mg Carvedilol (Coreg) 6.25 mg PO Q12 [facility] Last Admin: 04/30/18 08:52 Dose: 6.25 mg Hydrochlorothiazide (Microzide) 12.5 mg PO DAILY [facility] Last Admin: 04/30/18 08:56 Dose: 12.5 mg Metronidazole (Flagyl 500mg/100ml Ns) 100 mls @ 100 mls/hr IVPB Q8 [facility]; Protoc ol Last Admin: 04/30/18 08:53 Dose: 100 mls/hr Cefoxitin Sodium (Mefoxin Iv 1 Gm Duplex) 1 gm in 50 mls @ 50 mls/hr IVPB Q8 [facility]; Protocol Last Admin: 04/30/18 10:05 Dose: 50 mls/hr Dextrose/Sodium Chloride (Dextrose 5%/0.45% Ns 1000 Ml) 1,000 mls @ 100 mls/hr IV .Q10H [facility] Stop: 05/01/18 12:21 Lisinopril (Zestril) 20 mg PO DAILY [facility] Last Admin: 04/30/18 08:56 Dose: 20 mg Morphine Sulfate (Morphine) 2 mg IVP Q4 PRN PRN Reason: Pain, moderate (4-7) Ondansetron HCl (Zofran Inj) 4 mg IVP Q4 PRN PRN Reason: Nausea/Vomiting - Labs Labs: 04/29/18 08:22 04/29/18 08:22 PT 14.7 Seconds (9.8-13.1) H 04/27/18 16:06 INR 1.3 04/27/18 16:06 APTT 32.2 Seconds (25.6-37.1) 04/27/18 16:06 - Respiratory Exam Respiratory Exam: Clear to Ausculation Bilateral - Cardiovascular Exam Cardiovascular Exam: REGULAR RHYTHM, +S1, +S2 - Extremities Exam Additional comments: NO LOWER EXTREMITY EDEMA - Additional Findings Additional findings: MRCP AND LIVER CT WITH LIVER TUMOR Assessment and Plan - Assessment and Plan (Free Text) Assessment: CAD-STABLE HYPERTENSION GB NECK STONE LIVER TUMOR Plan: CONTINUE CARVEDILOL, AMLODIPINE, LISINOPRIL AND ATORVASTATIN FOR SURGERY WEDNESDAY
--- NOTE | 2018-04-30 14:41 | PN ---
DATE: 04/30/2018 SUBJECTIVE: The patient seen and examined. Interim events noted. The patient remains in regular medical floor. The patient feels okay. Denies any chest pain. No shortness of breath. No abdominal pain. No nausea, vomiting, or diarrhea. PHYSICAL EXAMINATION: GENERAL: The patient is in no acute distress. VITAL SIGNS: Stable. HEART: S1, S2, normal and regular. LUNGS: Good bilateral air exchange. ABDOMEN: Soft, nontender. No organomegaly noted. Bowel sounds are present, normal. No sign of acute abdomen. No guarding. No rigidity. No rebound. EXTREMITIES: No edema. No calf swelling. No tenderness. No acute ischemia. 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 The patient is ambulatory without assistance. There is no sign of any acute gross focal motor or sensory neurological deficits. DIAGNOSTIC DATA: Available diagnostic data reviewed. Liver CAT scan and MRCP is consistent with liver mass. ASSESSMENT AND PLAN: All discussed with the patient at length which she understood, possibility of biopsy and surgery discussed. Plan as ordered. Viraj Ba MD
[2018-05-01 07:02] LABS: HEMOGLOBIN 12.9 g/dL (12.0-18.0); MEAN CELL VOLUME 78.4 fl (80.0-94.0); MEAN CORPUSCULAR HEMOGLOBIN 26.1 pg (27.0-31.0); MEAN CORPUSCULAR HGB CONC 33.3 g/dL (33.0-37.0); RBC 4.95 Mil/uL (4.40-5.90); RED CELL DISTRIBUTION WIDTH 17.1 % (11.5-14.5); WHITE BLOOD COUNT 4.4 K/uL (4.8-10.8)
[2018-05-01 07:11] LABS: ALB/GLOB RATIO 0.8 (1.0-2.1); ALBUMIN 3.4 g/dL (3.5-5.0); ALT/SGPT 125 U/L (21-72); AST/SGOT 151 U/L (17-59); BLOOD UREA NITROGEN 10 mg/dl (9-20); CALCIUM 9.1 mg/dL (8.4-10.2); GFR NON-AFRICAN AMERICAN > 60
--- NOTE | 2018-05-01 07:52 | CP.PCM.PN ---
Subjective - Date & Time of Evaluation Date of Evaluation: 05/01/18 Time of Evaluation: 07:48 - Subjective Subjective: Surgery: Dr. Novoa Pt seen and examined. No acute overnight events. Pt doing well and denies any complaints at this time. Denies abdominal pain, nausea/vomiting, fevers/chills. Tolerating diet and ambulating. Objective - Vital Signs/Intake and Output Vital Signs (last 24 hours): Temp Pulse Resp BP Pulse Ox 98.0 F 67 20 119/70 97 05/01/18 00:30 05/01/18 00:30 05/01/18 00:30 05/01/18 00:30 05/01/18 00:30 - Medications Medications: Current Medications Amlodipine Besylate (Norvasc) 5 mg PO DAILY [facility] Last Admin: 04/30/18 08:56 Dose: 5 mg Atorvastatin Calcium (Lipitor) 20 mg PO HS [facility] Last Admin: 04/30/18 21:09 Dose: 20 mg Carvedilol (Coreg) 6.25 mg PO Q12 [facility] Last Admin: 04/30/18 21:09 Dose: 6.25 mg Hydrochlorothiazide (Microzide) 12.5 mg PO DAILY [facility] Last Admin: 04/30/18 08:56 Dose: 12.5 mg Dextrose/Sodium Chloride (Dextrose 5%-0.45% Ns 500 Ml) 500 mls @ 100 mls/hr IV .Q5H [facility] Stop: 05/01/18 18:26 Last Admin: 04/30/18 19:01 Dose: 100 mls/hr Lisinopril (Zestril) 20 mg PO DAILY [facility] Last Admin: 04/30/18 08:56 Dose: 20 mg Ondansetron HCl (Zofran Inj) 4 mg IVP Q4 PRN PRN Reason: Nausea/Vomiting - Labs Labs: 05/01/18 05:45 05/01/18 05:45 PT 14.7 Seconds (9.8-13.1) H 04/27/18 16:06 INR 1.3 04/27/18 16:06 APTT 32.2 Seconds (25.6-37.1) 04/27/18 16:06 - Constitutional Appears: Well, No Acute Distress - Head Exam Head Exam: ATRAUMATIC, NORMOCEPHALIC - Eye Exam Eye Exam: Scleral icterus - ENT Exam ENT Exam: Mucous Membranes Moist - Respiratory Exam Respiratory Exam: NORMAL BREATHING PATTERN - GI/Abdominal Exam GI & Abdominal Exam: Soft. absent: Tenderness - Extremities Exam Extremities Exam: absent: Calf Tenderness - Neurological Exam Neurological Exam: Alert, Awake, Oriented x3 - Skin Skin Exam: Dry, Warm Assessment and Plan - Assessment and Plan (Free Text) Assessment: 73M with cholelithiasis and hyperbilirubinemia; r/o biliary malignancy vs hepatic mass compressing biliary tree Plan: - keep pt NPO after midnight for GI procedure in AM - after discussion with Dr. Walters, he will assess for ERCP/EUS - if mass not amenable to GI evaluation, pt will need IR for possible biopsy/PTC - d/w Dr. Bright Roca
--- NOTE | 2018-05-01 12:11 | PN ---
DATE: 05/01/2018 SUBJECTIVE: The patient seen and examined. Interim events noted. The patient remains in regular medical floor. Feels okay. Denies any chest pain or shortness of breath. PHYSICAL EXAMINATION: GENERAL: The patient is in no acute distress. VITAL SIGNS: Stable. HEART: S1 and S2, normal and regular. LUNGS: Good bilateral air exchange. ABDOMEN: Soft and nontender. No sign of acute abdomen. No guarding. No rigidity. No rebound. EXTREMITIES: No edema. No calf swelling. No tenderness. No acute ischemia. 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 DIAGNOSTIC DATA: Available diagnostic data reviewed. Surgical followup and interventions noted and appreciated. ASSESSMENT AND PLAN: The patient is clinically stable, but has . Plan as ordered. Case and plan discussed with the patient. Viraj Ba MD
--- NOTE | 2018-05-01 14:15 | CP.PCM.PN ---
Subjective - Date & Time of Evaluation Date of Evaluation: 05/01/18 Time of Evaluation: 12:30 - Subjective Subjective: NO CHEST PAIN OR SOB Objective - Vital Signs/Intake and Output Vital Signs (last 24 hours): Temp Pulse Resp BP Pulse Ox 97.6 F 74 19 121/69 98 05/01/18 08:06 05/01/18 08:06 05/01/18 08:06 05/01/18 08:06 05/01/18 08:06 - Medications Medications: Current Medications Amlodipine Besylate (Norvasc) 5 mg PO DAILY [facility] Last Admin: 05/01/18 08:07 Dose: 5 mg Atorvastatin Calcium (Lipitor) 20 mg PO HS [facility] Last Admin: 04/30/18 21:09 Dose: 20 mg Carvedilol (Coreg) 6.25 mg PO Q12 [facility] Last Admin: 05/01/18 08:06 Dose: 6.25 mg Hydrochlorothiazide (Microzide) 12.5 mg PO DAILY [facility] Last Admin: 05/01/18 08:07 Dose: 12.5 mg Dextrose/Sodium Chloride (Dextrose 5%-0.45% Ns 500 Ml) 500 mls @ 100 mls/hr IV .Q5H [facility] Stop: 05/01/18 18:26 Last Admin: 05/01/18 10:47 Dose: Not Given Lisinopril (Zestril) 20 mg PO DAILY [facility] Last Admin: 05/01/18 08:07 Dose: 20 mg Ondansetron HCl (Zofran Inj) 4 mg IVP Q4 PRN PRN Reason: Nausea/Vomiting - Labs Labs: 05/01/18 05:45 05/01/18 05:45 PT 14.7 Seconds (9.8-13.1) H 04/27/18 16:06 INR 1.3 04/27/18 16:06 APTT 32.2 Seconds (25.6-37.1) 04/27/18 16:06 - Respiratory Exam Respiratory Exam: Clear to Ausculation Bilateral - Cardiovascular Exam Cardiovascular Exam: REGULAR RHYTHM, +S1, +S2 - Extremities Exam Additional comments: NO LE EDEMA Assessment and Plan - Assessment and Plan (Free Text) Assessment: CAD-STABLE HYPERTENSION HYPERLIPIDEMIA GALLBLADDER NECK STONE AND LIVER TUMOR Plan: CONTINUE CARVEDILOL, AMLODIPINE, LISINOPRIL, ATORVASTATIN AND HCTZ FOR GI PROCEDURE OR SURGERY TOMORROW-PATIENT IS CLEARED FROM THE CARDIAC VIEWPOINT
[2018-05-02 07:01] LABS: HEMOGLOBIN 12.2 g/dL (12.0-18.0); MEAN CELL VOLUME 78.7 fl (80.0-94.0); MEAN CORPUSCULAR HEMOGLOBIN 25.7 pg (27.0-31.0); MEAN CORPUSCULAR HGB CONC 32.6 g/dL (33.0-37.0); RBC 4.77 Mil/uL (4.40-5.90); RED CELL DISTRIBUTION WIDTH 17.3 % (11.5-14.5); WHITE BLOOD COUNT 3.7 K/uL (4.8-10.8)
[2018-05-02 07:28] LABS: ALB/GLOB RATIO 0.8 (1.0-2.1); ALBUMIN 2.9 g/dL (3.5-5.0); ALT/SGPT 104 U/L (21-72); AST/SGOT 122 U/L (17-59); BLOOD UREA NITROGEN 15 mg/dl (9-20); CALCIUM 8.8 mg/dL (8.4-10.2); GFR NON-AFRICAN AMERICAN > 60
--- NOTE | 2018-05-02 08:53 | CP.PCM.PN ---
Subjective - Date & Time of Evaluation Date of Evaluation: 05/02/18 Time of Evaluation: 08:50 - Subjective Subjective: no overnight events Objective - Vital Signs/Intake and Output Vital Signs (last 24 hours): Temp Pulse Resp BP Pulse Ox 98.3 F 76 18 102/65 99 05/01/18 23:52 05/02/18 08:01 05/01/18 23:52 05/02/18 08:01 05/01/18 23:52 - Medications Medications: Current Medications Amlodipine Besylate (Norvasc) 5 mg PO DAILY [facility] Last Admin: 05/02/18 07:59 Dose: Not Given Atorvastatin Calcium (Lipitor) 20 mg PO HS [facility] Last Admin: 05/01/18 21:04 Dose: 20 mg Carvedilol (Coreg) 6.25 mg PO Q12 [facility] Last Admin: 05/02/18 08:01 Dose: 6.25 mg Hydrochlorothiazide (Microzide) 12.5 mg PO DAILY [facility] Last Admin: 05/02/18 07:59 Dose: Not Given Lisinopril (Zestril) 20 mg PO DAILY [facility] Last Admin: 05/02/18 08:00 Dose: Not Given Ondansetron HCl (Zofran Inj) 4 mg IVP Q4 PRN PRN Reason: Nausea/Vomiting - Labs Labs: 05/02/18 05:12 05/02/18 05:12 PT 14.7 Seconds (9.8-13.1) H 04/27/18 16:06 INR 1.3 04/27/18 16:06 APTT 32.2 Seconds (25.6-37.1) 04/27/18 16:06 - Eye Exam Eye Exam: Scleral icterus - Neck Exam Neck Exam: Normal Inspection - Respiratory Exam Respiratory Exam: Clear to Ausculation Bilateral, NORMAL BREATHING PATTERN - Cardiovascular Exam Cardiovascular Exam: REGULAR RHYTHM - GI/Abdominal Exam GI & Abdominal Exam: Soft, Normal Bowel Sounds Assessment and Plan - Assessment and Plan (Free Text) Assessment: 73 yo male with mass in liver likely primary liver, less likely cholangio most reachable by percutaneous route by IR versus ercp since lesion does not appear intraductal afp, ca 19-9 pending TBD with surgery ad IR
--- NOTE | 2018-05-02 09:37 | CP.PCM.PN ---
Subjective - Date & Time of Evaluation Date of Evaluation: 05/02/18 Time of Evaluation: 09:00 - Subjective Subjective: NO CHEST PAIN OR SOB Objective - Vital Signs/Intake and Output Vital Signs (last 24 hours): Temp Pulse Resp BP Pulse Ox 98.0 F 78 19 145/75 97 05/02/18 09:09 05/02/18 09:09 05/02/18 09:09 05/02/18 09:09 05/02/18 09:09 - Medications Medications: Current Medications Amlodipine Besylate (Norvasc) 5 mg PO DAILY [facility] Last Admin: 05/02/18 07:59 Dose: Not Given Atorvastatin Calcium (Lipitor) 20 mg PO HS [facility] Last Admin: 05/01/18 21:04 Dose: 20 mg Carvedilol (Coreg) 6.25 mg PO Q12 [facility] Last Admin: 05/02/18 08:01 Dose: 6.25 mg Hydrochlorothiazide (Microzide) 12.5 mg PO DAILY [facility] Last Admin: 05/02/18 07:59 Dose: Not Given Dextrose/Sodium Chloride (Dextrose 5%-0.45% Ns 500 Ml) 1,000 mls @ 80 mls/hr IV .[id number] [facility] Stop: 05/03/18 09:32 Cefoxitin Sodium 1 gm/ Sodium (Chloride) 100 mls @ 100 mls/hr IVPB Q8 [facility]; Protocol Lisinopril (Zestril) 20 mg PO DAILY [facility] Last Admin: 05/02/18 08:00 Dose: Not Given Ondansetron HCl (Zofran Inj) 4 mg IVP Q4 PRN PRN Reason: Nausea/Vomiting - Labs Labs: 05/02/18 05:12 05/02/18 05:12 PT 14.7 Seconds (9.8-13.1) H 04/27/18 16:06 INR 1.3 04/27/18 16:06 APTT 32.2 Seconds (25.6-37.1) 04/27/18 16:06 - Respiratory Exam Respiratory Exam: Clear to Ausculation Bilateral - Cardiovascular Exam Cardiovascular Exam: REGULAR RHYTHM, +S1, +S2 - Extremities Exam Additional comments: NO LE EDEMA - Additional Findings Additional findings: GI NOTE REVIEWED Assessment and Plan - Assessment and Plan (Free Text) Assessment: CAD-STABLE HYPERTENSION HYPERLIPIDEMIA LIVER TUMOR GB NECK STONE Plan: CONTINUE CARVEDILOL, AMLODIPINE, LISINOPRIL AND ATORVASTATIN FOR PROBABLE LIVER BX
--- NOTE | 2018-05-02 11:42 | PN ---
DATE: 05/02/2018 SUBJECTIVE: The patient seen and examined. Interim events noted. Consults noted and appreciated. Surgery and Gastroenterology interventions noted and appreciated. The patient remains in regular medical floor. The patient is awake, responsive, feels okay. Denies any chest pain, shortness of breath, abdominal pain, nausea, vomiting or diarrhea. PHYSICAL EXAMINATION: GENERAL: The patient is in no acute distress. VITAL SIGNS: Stable. HEART: S1 and S2, normal and regular. LUNGS: Good bilateral air exchange. ABDOMEN: Soft, nontender. No organomegaly. No fluid. Bowel sounds are plus and normal. No sign of acute abdomen. No guarding. No rigidity. No rebound. EXTREMITIES: No edema. No calf swelling. No tenderness. No acute ischemia. CENTRAL NERVOUS SYSTEM: Exam is essentially unchanged. DIAGNOSTIC DATA: Available diagnostic data reviewed. Liver function remains still elevated. ASSESSMENT AND PLAN: Overall, the patient is clinically stable. Will need biopsy of the liver lesion. Plan as ordered. Case and plan discussed with the patient. Viraj Ba MD
[2018-05-02] MEDS: cefOXitin IV 1 gm in Dextrose 1 GM/50 ML BAG IVPB SCH ×2 (11:57→16:28)
[2018-05-03] MEDS: cefOXitin IV 1 gm in Dextrose 1 GM/50 ML BAG IVPB SCH ×2 (00:16→09:05)
[2018-05-03 05:57] LABS: HEMOGLOBIN 12.3 g/dL (12.0-18.0); MEAN CELL VOLUME 78.4 fl (80.0-94.0); MEAN CORPUSCULAR HEMOGLOBIN 26.2 pg (27.0-31.0); MEAN CORPUSCULAR HGB CONC 33.5 g/dL (33.0-37.0); RBC 4.7 Mil/uL (4.40-5.90); RED CELL DISTRIBUTION WIDTH 17.2 % (11.5-14.5); WHITE BLOOD COUNT 4.1 K/uL (4.8-10.8)
[2018-05-03 06:10] LABS: ALB/GLOB RATIO 0.8 (1.0-2.1); ALT/SGPT 109 U/L (21-72); AST/SGOT 143 U/L (17-59); BLOOD UREA NITROGEN 16 mg/dl (9-20); CALCIUM 9.1 mg/dL (8.4-10.2); GFR NON-AFRICAN AMERICAN > 60
--- NOTE | 2018-05-03 08:16 | CP.PCM.PN ---
Subjective - Date & Time of Evaluation Date of Evaluation: 05/03/18 Time of Evaluation: 08:12 - Subjective Subjective: Surgery: Dr. Novoa Pt seen and examined. No acute overnight events. States he feels well, and denies abdominal pain. Denies any other complaints at this time. Tolerating diet, ambulating. Denies nausea/vomiting, fevers/chills. Objective - Vital Signs/Intake and Output Vital Signs (last 24 hours): Temp Pulse Resp BP Pulse Ox 97.8 F 76 20 96/60 L 96 05/03/18 00:00 05/03/18 00:00 05/03/18 00:00 05/03/18 00:00 05/03/18 00:00 - Medications Medications: Current Medications Amlodipine Besylate (Norvasc) 5 mg PO DAILY [facility] Last Admin: 05/02/18 18:49 Dose: 5 mg Atorvastatin Calcium (Lipitor) 20 mg PO HS [facility] Last Admin: 05/02/18 21:17 Dose: 20 mg Carvedilol (Coreg) 6.25 mg PO Q12 [facility] Last Admin: 05/02/18 21:17 Dose: 6.25 mg Hydrochlorothiazide (Microzide) 12.5 mg PO DAILY [facility] Last Admin: 05/02/18 18:49 Dose: 12.5 mg Dextrose/Sodium Chloride (Dextrose 5%-0.45% Ns 500 Ml) 1,000 mls @ 80 mls/hr IV .[id number] [facility] Stop: 05/03/18 09:32 Last Admin: 05/02/18 21:20 Dose: 80 mls/hr Cefoxitin Sodium (Mefoxin Iv 1 Gm Duplex) 1 gm in 50 mls @ 50 mls/hr IVPB Q8 [facility]; Protocol Last Admin: 05/03/18 00:16 Dose: 50 mls/hr Lisinopril (Zestril) 20 mg PO DAILY [facility] Last Admin: 05/02/18 18:49 Dose: 20 mg Ondansetron HCl (Zofran Inj) 4 mg IVP Q4 PRN PRN Reason: Nausea/Vomiting - Labs Labs: 05/03/18 05:30 05/03/18 05:30 PT 14.7 Seconds (9.8-13.1) H 04/27/18 16:06 INR 1.3 04/27/18 16:06 APTT 32.2 Seconds (25.6-37.1) 04/27/18 16:06 - Constitutional Appears: Well, No Acute Distress - Eye Exam Eye Exam: Scleral icterus - Respiratory Exam Respiratory Exam: NORMAL BREATHING PATTERN - Cardiovascular Exam Cardiovascular Exam: RRR - GI/Abdominal Exam GI & Abdominal Exam: Soft. absent: Tenderness - Neurological Exam Neurological Exam: Alert, Awake, Oriented x3 - Skin Skin Exam: Dry, Warm Assessment and Plan - Assessment and Plan (Free Text) Assessment: 73M with cholelithiasis and hyperbilirubinemia likely secondary to cholangiocarcinoma vs liver mass as seen on CT Plan: - pt completely asymptomatic and as per discussion with Dr. Walters & IR the mass is not amenable to ERCP/EUS or CT guided bx/PTC - pt will benefit from evaluation at a hepatobiliary center for further workup and diagnosis of this mass - recommend f/u with [facility] Dr. Kyaw Ojeda - d/w Dr. Bright Roca
[2018-05-03 08:27] VITALS: BP 120/75; PULSE 77; RESP 18; TEMP 98.1; O2SAT 99
--- NOTE | 2018-05-03 09:39 | CP.PCM.PN ---
Subjective - Date & Time of Evaluation Date of Evaluation: 05/03/18 Time of Evaluation: 09:00 - Subjective Subjective: NO CHEST OR SOB Objective - Vital Signs/Intake and Output Vital Signs (last 24 hours): Temp Pulse Resp BP Pulse Ox 98.1 F 77 18 120/75 99 05/03/18 08:27 05/03/18 09:04 05/03/18 08:27 05/03/18 09:04 05/03/18 08:27 - Medications Medications: Current Medications Amlodipine Besylate (Norvasc) 5 mg PO DAILY [facility] Last Admin: 05/03/18 09:04 Dose: 5 mg Atorvastatin Calcium (Lipitor) 20 mg PO HS [facility] Last Admin: 05/02/18 21:17 Dose: 20 mg Carvedilol (Coreg) 6.25 mg PO Q12 [facility] Last Admin: 05/03/18 09:03 Dose: 6.25 mg Hydrochlorothiazide (Microzide) 12.5 mg PO DAILY [facility] Last Admin: 05/03/18 09:05 Dose: 12.5 mg Dextrose/Sodium Chloride (Dextrose 5%-0.45% Ns 500 Ml) 1,000 mls @ 80 mls/hr IV .[id number] [facility] Stop: 05/03/18 09:32 Last Admin: 05/02/18 21:20 Dose: 80 mls/hr Cefoxitin Sodium (Mefoxin Iv 1 Gm Duplex) 1 gm in 50 mls @ 50 mls/hr IVPB Q8 [facility]; Protocol Last Admin: 05/03/18 09:05 Dose: 50 mls/hr Lisinopril (Zestril) 20 mg PO DAILY [facility] Last Admin: 05/03/18 09:03 Dose: 20 mg Ondansetron HCl (Zofran Inj) 4 mg IVP Q4 PRN PRN Reason: Nausea/Vomiting - Labs Labs: 05/03/18 05:30 05/03/18 05:30 PT 14.7 Seconds (9.8-13.1) H 04/27/18 16:06 INR 1.3 04/27/18 16:06 APTT 32.2 Seconds (25.6-37.1) 04/27/18 16:06 - Respiratory Exam Respiratory Exam: Clear to Ausculation Bilateral - Cardiovascular Exam Cardiovascular Exam: REGULAR RHYTHM, +S1, +S2 - Extremities Exam Extremities Exam: Normal Inspection Assessment and Plan - Assessment and Plan (Free Text) Assessment: LIVER TUMOR CAD HYPERTENSION HYPERLIPIDEMIA Plan: FOR LIVER BIOPSY
--- NOTE | 2018-05-03 10:29 | CP.PCM.PN ---
Subjective - Date & Time of Evaluation Date of Evaluation: 05/03/18 Time of Evaluation: 09:30 - Subjective Subjective: GI Fellow PGY5 Progress Note Pt seen and evaluated at bedside, pt doing well with no complaints of abdominal pain, N/V. Tolerating his diet, +BM. ROS: A 12pt ROS was negative except as above Objective - Vital Signs/Intake and Output Vital Signs (last 24 hours): Temp Pulse Resp BP Pulse Ox 98.1 F 77 18 120/75 99 05/03/18 08:27 05/03/18 09:04 05/03/18 08:27 05/03/18 09:04 05/03/18 08:27 - Medications Medications: Current Medications Amlodipine Besylate (Norvasc) 5 mg PO DAILY [facility] Last Admin: 05/03/18 09:04 Dose: 5 mg Atorvastatin Calcium (Lipitor) 20 mg PO HS [facility] Last Admin: 05/02/18 21:17 Dose: 20 mg Carvedilol (Coreg) 6.25 mg PO Q12 [facility] Last Admin: 05/03/18 09:03 Dose: 6.25 mg Hydrochlorothiazide (Microzide) 12.5 mg PO DAILY [facility] Last Admin: 05/03/18 09:05 Dose: 12.5 mg Cefoxitin Sodium (Mefoxin Iv 1 Gm Duplex) 1 gm in 50 mls @ 50 mls/hr IVPB Q8 [facility]; Protocol Last Admin: 05/03/18 09:05 Dose: 50 mls/hr Lisinopril (Zestril) 20 mg PO DAILY [facility] Last Admin: 05/03/18 09:03 Dose: 20 mg Ondansetron HCl (Zofran Inj) 4 mg IVP Q4 PRN PRN Reason: Nausea/Vomiting - Labs Labs: 05/03/18 05:30 05/03/18 05:30 PT 14.7 Seconds (9.8-13.1) H 04/27/18 16:06 INR 1.3 04/27/18 16:06 APTT 32.2 Seconds (25.6-37.1) 04/27/18 16:06 - Constitutional Appears: Non-toxic, No Acute Distress - Head Exam Head Exam: ATRAUMATIC, NORMAL INSPECTION, NORMOCEPHALIC - Eye Exam Eye Exam: EOMI, PERRL, Scleral icterus Pupil Exam: PERRL - ENT Exam ENT Exam: Mucous Membranes Moist - Neck Exam Neck Exam: Full ROM - Respiratory Exam Respiratory Exam: Decreased Breath Sounds, NORMAL BREATHING PATTERN - Cardiovascular Exam Cardiovascular Exam: RRR, +S1, +S2 - GI/Abdominal Exam GI & Abdominal Exam: Soft, Normal Bowel Sounds. absent: Distended, Firm, Guarding, Tenderness - Rectal Exam Rectal Exam: Deferred - Extremities Exam Extremities Exam: Full ROM, Normal Inspection - Neurological Exam Neurological Exam: Alert, Awake, Oriented x3 - Psychiatric Exam Psychiatric exam: Normal Affect, Normal Mood - Skin Skin Exam: Dry, Intact, Warm Additional comments: jaundiced Assessment and Plan - Assessment and Plan (Free Text) Assessment: This is a 73yM presenting with jaundice. 1. Liver mass 2. Hyperbilirubinemia 3. Cholelithiasis Plan: -Continue supportive care -CT imaging reviewed, liver mass maybe HCC vs cholangiocarcinoma -Tbili trending up -Ca 19-9 pending -Appointment was made for pt to followup at [facility] [place] with Dr. Kyaw Ojeda hepatobiliary surgeon on May 17, 2018 at 9am. Appointment address: [address], [place] -Pt needs to have all records including images done at [facility] mailed in advance to [facility] Dr. Ojeda, [address], [address] [facility] -Plan was discussed with surgical and primary team.
--- NOTE | 2018-05-03 13:02 | CP.PCM.PCO ---
Assessment & Plan - Assessment and Plan (Free Text) Assessment: pt. doing well, denies fever , chills, abd pain , n/v/d pt. cleared for discharge to home today by , sx team pt. instructed to resume ASA/Plavix ( D/w ) and then follow up at [facility] with Dr. Kyaw Ojeda hepatobiliary surgeon on May 17, 2018 at 9am. Appointment address: [address], [place], [place] all records including images done at [facility] provided to patient and instructed pt to mail all documents in advance to [facility]ention Dr. Ojeda, [address], [address] [facility], Also d/w his and daughter pt. to f/u with in 1 week
--- NOTE | 2018-05-03 20:23 | CP.PCM.PN ---
Subjective - Date & Time of Evaluation Date of Evaluation: 05/03/18 Time of Evaluation: 22:22 - Subjective Subjective: Above noted Chart reviewed in detail Objective - Vital Signs/Intake and Output Vital Signs (last 24 hours): Temp Pulse Resp BP Pulse Ox 98.1 F 77 18 120/75 99 05/03/18 08:27 05/03/18 09:04 05/03/18 08:27 05/03/18 09:04 05/03/18 08:27 - Labs Labs: 05/03/18 05:30 05/03/18 05:30 PT 14.7 Seconds (9.8-13.1) H 04/27/18 16:06 INR 1.3 04/27/18 16:06 APTT 32.2 Seconds (25.6-37.1) 04/27/18 16:06 Assessment and Plan - Assessment and Plan (Free Text) Assessment: Jaundice Liver mass ? GB dx cystic duct stone F/U [facility] Liver center Dr Ojeda Nephrolithiasis HX CAD NIDDM cardiology
== END 2018-05-03 14:00 | disposition home or self-care (01) | DRG 446 ==
LOC: H.ER 15:02 → H.ERHOLD 19:37 → H.MEDSURG1 21:10
PROVIDERS: ADMIT Family Medicine Geriatric Medicine; ATTEND Family Medicine Geriatric Medicine
PROC: 0FJB8ZZ Inspection of Hepatobiliary Duct, Via Natural or Artificial Opening Endoscopic (ICD-10-PCS; principal; 2018-04-27)
DX: K80.20 Calculus of gallbladder without cholecystitis without obstruction (principal); N20.0 Calculus of kidney; R16.0 Hepatomegaly, not elsewhere classified; I25.10 Atherosclerotic heart disease of native coronary artery without angina pectoris; E11.9 Type 2 diabetes mellitus without complications; I10 Essential (primary) hypertension; E78.5 Hyperlipidemia, unspecified; E78.00 Pure hypercholesterolemia, unspecified; Z79.02 Long term (current) use of antithrombotics/antiplatelets; Z79.84 Long term (current) use of oral hypoglycemic drugs; Z79.82 Long term (current) use of aspirin; Z87.891 Personal history of nicotine dependence; Z90.49 Acquired absence of other specified parts of digestive tract

== ENCOUNTER 2018-07-04 16:10 | Inpatient (IN) | payer MEDICARE ==
--- NOTE | 2018-07-04 17:11 | ED PDOC ---
HPI: General Adult Time Seen by Provider: 07/04/18 16:35 Chief Complaint (Nursing): Dizziness/Lightheaded Chief Complaint (Provider): Dizziness/Lightheaded History Per: Patient History/Exam Limitations: no limitations Onset/Duration Of Symptoms: Days (x 1) Current Symptoms Are (Timing): Still Present Additional Complaint(s): 73 year old female with a history of HTN, DM and liver mass presents to the ED with lightheadedness for one day. Patient reports feeling tired and lightheaded and that he vomited a small amount this morning. He is supposed to present to [facility] tomorrow to see a liver specialist for further evaluation of liver lesion. Denies cough, hematemesis, chest pain, shortness of breath, focal weakness and headache. PMD: Dr. Bautista Past Medical History Reviewed: Historical Data, Nursing Documentation, Vital Signs Vital Signs: Last Vital Signs Temp 98.1 F 07/04/18 16:19 Pulse 84 07/04/18 16:19 Resp 17 07/04/18 16:19 BP 115/68 07/04/18 16:19 Pulse Ox 98 07/04/18 16:19 - Medical History PMH: HTN, Hypercholesterolemia, Hyperlipidemia Denies: Chronic Kidney Disease - Surgical History Surgical History: Cholecystectomy - Family History Family History: States: Unknown Family Hx - Home Medications Home Medications: Ambulatory Orders Medication Instructions Recorded Aspirin [Ecotrin] 81 mg PO DAILY 03/25/18 Atorvastatin [Lipitor] 20 mg PO HS 03/25/18 Carvedilol [Coreg] 6.25 mg PO Q12 03/25/18 Glipizide [Glipizide ER] 10 mg PO DAILY 03/25/18 Lisinopril/Hydrochlorothiazide 1 tab PO DAILY 03/25/18 [Lisinopril-Hctz 20-12.5 mg Tab] amLODIPine [Norvasc] 5 mg PO DAILY 03/25/18 metFORMIN [glucOPHAGE] 850 mg PO BID 03/25/18 Clopidogrel [Plavix] 75 mg PO DAILY #14 tab 05/03/18 - Allergies Allergies/Adverse Reactions: Allergies Allergy/AdvReac Type Severity Reaction Status Date / Time No Known Allergies Allergy Verified 07/04/18 16:19 Review of Systems ROS Statement: Except As Marked, All Systems Reviewed And Found Negative Constitutional: Positive for: Weakness (fatigue and generalized weakness), Malaise. Negative for: Fever Cardiovascular: Negative for: Chest Pain Respiratory: Negative for: Cough, Shortness of Breath Gastrointestinal: Positive for: Other (abdominal swelling). Negative for: Hematemesis Musculoskeletal: Positive for: Other (leg swelling) Skin: Positive for: Jaundice Neurological: Negative for: Weakness Physical Exam - Reviewed Nursing Documentation Reviewed: Yes Vital Signs Reviewed: Yes - Physical Exam Appears: Positive for: No Acute Distress (tired appearing) Head Exam: Positive for: ATRAUMATIC, NORMAL INSPECTION, NORMOCEPHALIC Skin: Positive for: Warm, Dry, Jaundice (markedly) Eye Exam: Positive for: EOMI, PERRL, Scleral icterus ENT: Positive for: Other (tacky mucus membranes) Neck: Positive for: Painless ROM, Supple Cardiovascular/Chest: Positive for: Regular Rate, Rhythm. Negative for: Murmur Respiratory: Positive for: Normal Breath Sounds. Negative for: Wheezing, Respiratory Distress Gastrointestinal/Abdominal: Positive for: Soft, Distended. Negative for: Tenderness, Mass, Guarding, Rebound Back: Positive for: Normal Inspection. Negative for: Muscle Spasm Extremity: Positive for: Pedal Edema (2+ pitting bilateral lower leg edema). Negative for: Deformity Lymphatic: Negative for: Adenopathy Neurologic/Psych: Positive for: Alert. Negative for: Motor/Sensory Deficits - Laboratory Results Result Diagrams: 07/04/18 17:21 07/04/18 17:22 - ECG ECG Rhythm: Positive for: Sinus Rhythm, Nonspecific Changes O2 Sat by Pulse Oximetry: 98 (RA) Pulse Ox Interpretation: Normal Medical Decision Making Medical Decision Makin:52 Impression: jaundice and dizziness Differential diagnoses include but are not limited to: dehydration, electrolyte abnormality, hepatic encephalopathy, anemia, fluid overload Initial Plan: --Blood type and screen --VBG --EKG --Ammonia --Amylase --BNP --CMP --LDH --Lipase --Magnesium --Phosphorus --CBC --PTT/PT --Glucose POC --Blood cx --Urine cx --Cardiac monitoring --Influenza AB --UA 17:57 --Labs demonstrate markedly elevated ammonia and deranged LFTs with no coagulopathy. Low Postassium. Elevated BUN and lactic acid. CBC mild anemia. --Enulose 20 gm PO --Potassium chloride 100 ml IVPB 18:12 --Patient admitted as inpatient. Diagnoses are hepatic encephalopathy and liver mass. --EMMY Bautista who requests [facility]. Possible transfer to [place] when stabilized. --EMMY pt and findings and plan of care. Scribe Attestation: Documented by Kathy Mukherjee, acting as a scribe for Oriana Nguyễn MD Provider Scribe Attestation: All medical record entries made by the Scribe were at my direction and personally dictated by me. I have reviewed the chart and agree that the record accurately reflects my personal performance of the history, physical exam, medical decision making, and the department course for this patient. I have also personally directed, reviewed, and agree with the discharge instructions and disposition. Disposition - Clinical Impression Clinical Impression: Hepatic encephalopathy, Hypokalemia, Liver mass Counseled Patient/Family Regarding: Studies Performed, Diagnosis - Disposition Disposition Time: 18:00 Condition: GUARDED - Pt Status Changed To: Hospital Disposition Of: Inpatient - Admit Certification Admit to Inpatient:: After my assessment, the patient will require hospitalization for at least two midnights. This is because of the severity of symptoms shown, intensity of services needed, and/or the medical risk in this patient being treated as an outpatient. - POA Present On Arrival: None
[2018-07-04 17:28] LABS: BASO # 0.1 K/uL (0.0-0.2); BASO % 1.3 % (0.0-2.0); EOS # 0.1 K/uL (0.0-0.7); HEMOGLOBIN 11.7 g/dL (12.0-18.0); LYMPH # 0.4 K/uL (1.0-4.3); LYMPH % 6.1 % (20.0-40.0); MEAN CELL VOLUME 76.9 fl (80.0-94.0); MEAN CORPUSCULAR HEMOGLOBIN 26.4 pg (27.0-31.0); MEAN CORPUSCULAR HGB CONC 34.3 g/dL (33.0-37.0); MEAN PLATELET VOLUME 8.8 fl (7.2-11.7); MONO # 0.6 K/uL (0.0-0.8); NEUT # 4.7 K/uL (1.8-7.0); NEUT % 80.6 % (50.0-75.0); PLATELET COUNT 167 K/uL (130-400); RBC 4.43 Mil/uL (4.40-5.90); RED CELL DISTRIBUTION WIDTH 22.1 % (11.5-14.5); WHITE BLOOD COUNT 5.8 K/uL (4.8-10.8)
[2018-07-04 17:35] LABS: VENOUS BLOOD GAS BASE EXCESS -2.8 mmol/L (0.0-2.0); VENOUS BLOOD GAS PCO2 32 mmHg (40-60); VENOUS BLOOD GAS PO2 37 mm/Hg (30-55); VENOUS BLOOD PH 7.42 (7.32-7.43)
[2018-07-04 17:40] LABS: INR 1.9; PROTHROMBIN TIME 22.1 Seconds (9.8-13.1)
[2018-07-04 17:42] LABS: PARTIAL THROMBOPLASTIN TIME 33.2 Seconds (25.6-37.1)
[2018-07-04 17:55] LABS: ALB/GLOB RATIO 0.6 (1.0-2.1); ALBUMIN 2.5 g/dL (3.5-5.0); ALT/SGPT 113 U/L (21-72); AMYLASE 78 U/L (30-110); AST/SGOT 202 U/L (17-59); B-TYPE NATRIURETIC PEPTIDE 276 pg/ml (0-900); BLOOD UREA NITROGEN 34 mg/dl (9-20); CALCIUM 8.7 mg/dL (8.4-10.2); GFR NON-AFRICAN AMERICAN 50; LIPASE 213 U/L (23-300)
[2018-07-04] MEDS ORDERED: Potassium CL 10mEq/100ml 100 ML IVPB ONE (17:58)
--- NOTE | 2018-07-04 18:34 | RAD ---
Date of service: 07/04/2018 HISTORY: weakness COMPARISON: 04/27/2018 FINDINGS: LUNGS: There is poor expiratory effort when compared to the prior study with mild bilateral lower lung field subsegmental atelectasis. PLEURA: No significant pleural effusion identified, no pneumothorax apparent. CARDIOVASCULAR: Uncoiling of the aorta with minor calcification. Mildly enlarged. Mild congestion is not excluded, although a portion of this may be related to the poor expiratory effort and crowding of the vessels. OSSEOUS STRUCTURES: No significant abnormalities. VISUALIZED UPPER ABDOMEN: Normal. OTHER FINDINGS: None. IMPRESSION: Poor expiratory effort with mild subsegmental atelectasis and crowding at the lung bases.
[2018-07-04 18:37] LABS: EOSINOPHIL 1 % (0-7); LYMPHOCYTE 7 % (20-50); MONOCYTE 2 % (0-10); NEUTROPHIL 90 % (42-75); NUCLEATED RED BLOOD CELL 1 % (0-0); PLATELET ESTIMATE NORMAL (NORMAL); TOTAL CELLS COUNTED 100
[2018-07-04 18:38] LABS: ANISOCYTOSIS SLIGHT; HYPOCHROMIC SLIGHT; MICROCYTOSIS SLIGHT
[2018-07-04 18:39] LABS: OVALOCYTES SLIGHT; SCHISTOCYTES SLIGHT; TARGET CELLS MODERATE
[2018-07-04 22:09] LABS: SQUAMOUS EPITHIAL < 1 /hpf (0-5); URINE BACTERIA OCC (<OCC); URINE BILIRUBIN MODERATE (NEGATIVE); URINE BLOOD SMALL (NEGATIVE); URINE CLARITY SLIGHTY-CLOUDY (Clear); URINE COLOR AMBER (YELLOW); URINE GLUCOSE (UA) NEG (NEGATIVE); URINE HYALINE CAST 0-2 /hpf (0-2); URINE LEUKOCYTE ESTERASE NEG Leu/uL (Negative); URINE PROTEIN 30 mg/dL (NEGATIVE)
[2018-07-05] MEDS ORDERED: Potassium CL 10mEq/100ml 100 ML IVPB ONE (00:15)
[2018-07-05] MEDS: Sodium Chloride 0.45% 1,000 ML IV SCH ×2 (00:33→17:20)
[2018-07-05 05:55] LABS: MEAN CELL VOLUME 79.1 fl (80.0-94.0); MEAN CORPUSCULAR HEMOGLOBIN 26.4 pg (27.0-31.0); MEAN CORPUSCULAR HGB CONC 33.3 g/dL (33.0-37.0); RBC 4.18 Mil/uL (4.40-5.90); WHITE BLOOD COUNT 5.7 K/uL (4.8-10.8)
[2018-07-05 05:59] LABS: INR 1.8; PROTHROMBIN TIME 20.4 Seconds (9.8-13.1)
[2018-07-05 06:03] LABS: ALT/SGPT 104 U/L (21-72); AST/SGOT 180 U/L (17-59); BILIRUBIN,DIRECT 20.4 mg/ml (0.0-0.4); BLOOD UREA NITROGEN 36 mg/dl (9-20); CALCIUM 8.6 mg/dL (8.4-10.2); GFR NON-AFRICAN AMERICAN 54
[2018-07-05 06:23] LABS: ALB/GLOB RATIO 0.5 (1.0-2.1); ALBUMIN 2.3 g/dL (3.5-5.0)
--- NOTE | 2018-07-05 06:41 | CARD ---
APPROVED REPORT Date of service: 07/04/2018 EKG Measurement Heart [id number] [id number] <Conclusion> Normal sinus rhythm Left axis deviation Inferior infarct, age undetermined Prolonged QT Abnormal ECG
[2018-07-05] MEDS: GlipiZIDE 10 mg SR Tab PO SCH (08:41)
[2018-07-05] MEDS ORDERED: Potassium Chloride 20 mEq ER Tab PO ONE (09:15)
--- NOTE | 2018-07-05 11:03 | CP.PCM.CON ---
History of Present Illness - History of Present Illness History of Present Illness: THE PATIENT IS A 73 YEAR OLD MALE WITH A HISTORY OF CAD, HYPERTENSION, HYPERLIPIDEMIA, TYPE 2 DM, CHOLELITHIASIS AND A LIVER TUMOR. HE WAS ADMITTED TO [facility] IN APRIL OF THIS YEAR FOR WHAT WAS INITIALLY THOUGHT TO BE CHOLECYSTITIS DUE TO AN IMPACTED GALLSTONE IN THE GALLBLADDER NECK BUT AN MRCP FOUND A LIVER TUMOR WITH COMPRESSION ON THE HEPATIC DUCTS. THE PATIENT WAS REFERRED TO [facility] AND WAS SEEN BY A LIVER SPECIALIST THERE. HE WAS SCHEDULED TO HAVE AN ENDOSCOPY THERE TODAY. BUT, YESTERDAY HE FELT WEAK AND LIGHTHEADED AND VOMITED NCE AND WENT TO THE ER AND WAS ADMITTED. HE FEELS BETTER THIS MORNING. CARDIOLOGY WAS ASKED TO SEE HIM DUE TO HIS CAD HISTORY. HE HAD AN OLD IWMI AND IS CHEST PAIN FREE AND IS NOT SOB. HE HAD A NUCLEAR PHARMACOLOGICAL STRESS TEST IN 2016 THAT SHOWED AN IW SCAR WITH PERIINFARCT ISCHEMIA BUT THE OTHER SEGMENTS OF THE LEFT VENTRICLE SHOWED GOOD PERFUSION. Past Patient History - Infectious Disease Hx of Infectious Diseases: None - Past Medical History & Family History Past Medical History?: Yes - Past Social History Smoking Status: Former Smoker - CARDIAC Hx Cardiac Disorders: Yes Hx Hypercholesterolemia: Yes Hx Hypertension: Yes - PULMONARY Hx Respiratory Disorders: No - NEUROLOGICAL Hx Neurological Disorder: No - HEENT Hx HEENT Problems: No - RENAL Hx Chronic Kidney Disease: No - ENDOCRINE/METABOLIC Hx Endocrine Disorders: Yes Hx Diabetes Mellitus Type 2: Yes - HEMATOLOGICAL/ONCOLOGICAL Hx Blood Disorders: No - INTEGUMENTARY Hx Dermatological Problems: No - MUSCULOSKELETAL/RHEUMATOLOGICAL Hx Musculoskeletal Disorders: No Hx Falls: No - GASTROINTESTINAL Hx Liver Failure: Yes (LIVER DISEASE) - GENITOURINARY/GYNECOLOGICAL Hx Genitourinary Disorders: No - PSYCHIATRIC Hx Psychophysiologic Disorder: No Hx Substance Use: No - SURGICAL HISTORY Hx Surgeries: Yes Hx Cholecystectomy: Yes - ANESTHESIA Hx Anesthesia: Yes Hx Anesthesia Reactions: No Hx Malignant Hyperthermia: No Has any member of the family had a problem w/ anesthesia?: No Meds Allergies/Adverse Reactions: Allergies Allergy/AdvReac Type Severity Reaction Status Date / Time No Known Allergies Allergy Verified 07/04/18 16:19 - Medications Medications: Current Medications Aspirin (Ecotrin) 81 mg PO DAILY [facility] Last Admin: 07/05/18 08:41 Dose: 81 mg Clopidogrel Bisulfate (Plavix) 75 mg PO DAILY [facility] Last Admin: 07/05/18 08:41 Dose: 75 mg Glipizide (Glucotrol Xl) 10 mg PO BRK [facility] Last Admin: 07/05/18 08:41 Dose: 10 mg Sodium Chloride (Sodium Chloride 0.45%) 1,000 mls @ 60 mls/hr IV .[id number] [facility] Stop: 07/06/18 00:15 Last Admin: 07/05/18 00:33 Dose: 60 mls/hr Metformin HCl (Glucophage) 850 mg PO BRKDIN [facility] Last Admin: 07/05/18 08:41 Dose: 850 mg Ondansetron HCl (Zofran Inj) 4 mg IVP Q6 PRN PRN Reason: Nausea/Vomiting Physical Exam - Respiratory Exam Respiratory Exam: Clear to Auscultation Bilateral - Cardiovascular Exam Cardiovascular Exam: REGULAR RHYTHM, +S1, +S2 - Extremities Exam Additional comments: NO LE EDEMA - Additional Findings Additional findings: BP 102/62 OFF MEDICINES EKG NSR, OLD IWMI LFT VERY ELEVATED WITH BILIRUBIN OF 22.6 Results - Vital Signs Recent Vital Signs: Last Vital Signs Temp 97.7 F 07/05/18 07:54 Pulse 97 H 07/05/18 07:54 Resp 18 07/05/18 07:54 BP 102/62 07/05/18 07:54 Pulse Ox 99 07/05/18 07:54 - Labs Result Diagrams: 07/05/18 04:25 07/05/18 04:25 Labs: Laboratory Results - last 24 hr 07/04/18 07/04/18 07/04/18 17:02 17:15 17:21 WBC 5.8 RBC 4.43 Hgb 11.7 L Hct 34.0 L MCV 76.9 L MCH 26.4 L MCHC 34.3 RDW 22.1 H Plt Count 167 MPV 8.8 Neut % (Auto) 80.6 H Lymph % (Auto) 6.1 L [place] % (Auto) 11.0 H Eos % (Auto) 1.0 Baso % (Auto) 1.3 Neut # (Auto) 4.7 Lymph # (Auto) 0.4 L [place] # (Auto) 0.6 Eos # (Auto) 0.1 Baso # (Auto) 0.1 Neutrophils % (Manual) 90 H Lymphocytes % (Manual) 7 L Monocytes % (Manual) 2 Eosinophils % (Manual) 1 Nucleated RBC % 1 H Platelet Estimate Normal Hypochromasia (manual) Slight Anisocytosis (manual) Slight Microcytosis (manual) Slight Target Cells Moderate Ovalocytes Slight Schistocytes Slight Retic Count PT INR APTT pO2 VBG pH VBG pCO2 VBG HCO3 VBG Total CO2 VBG O2 Sat (Calc) VBG Base Excess VBG Potassium Glucose Lactate FiO2 Sodium Potassium Chloride Carbon Dioxide Anion Gap BUN Creatinine Est GFR ( Amer) Est GFR (Non-Af Amer) POC Glucose (mg/dL) 145 H Random Glucose Calcium Phosphorus Magnesium Ferritin Total Bilirubin Direct Bilirubin AST ALT Alkaline Phosphatase Ammonia Lactate Dehydrogenase NT-Pro-B Natriuret Pep Total Protein Albumin Globulin Albumin/Globulin Ratio Amylase Lipase Alpha Fetoprotein Carcinoembryonic Ag Vitamin B12 Venous Blood Potassium Urine Color Urine Clarity Urine pH Ur Specific [place] Urine Protein Urine Glucose (UA) Urine Ketones Urine Blood Urine Nitrate Urine Bilirubin Urine Urobilinogen Ur Leukocyte Esterase Urine RBC (Auto) Urine Microscopic WBC Ur Squamous Epith Cells Urine Bacteria Hyaline Casts Influenza Typ A,B (EIA) Blood Type A POSITIVE Antibody Screen Positive Antibody Identification Anti M Antigen Identification S Antigen - NEGATIVE BBK History Checked Patient has bt 07/04/18 07/04/18 07/04/18 17:22 17:22 17:22 WBC RBC Hgb Hct MCV MCH MCHC RDW Plt Count MPV Neut % (Auto) Lymph % (Auto) [place] % (Auto) Eos % (Auto) Baso % (Auto) Neut # (Auto) Lymph # (Auto) [place] # (Auto) Eos # (Auto) Baso # (Auto) Neutrophils % (Manual) Lymphocytes % (Manual) Monocytes % (Manual) Eosinophils % (Manual) Nucleated RBC % Platelet Estimate Hypochromasia (manual) Anisocytosis (manual) Microcytosis (manual) Target Cells Ovalocytes Schistocytes Retic Count PT 22.1 H INR 1.9 APTT 33.2 pO2 VBG pH VBG pCO2 VBG HCO3 VBG Total CO2 VBG O2 Sat (Calc) VBG Base Excess VBG Potassium Glucose Lactate FiO2 Sodium 139 Potassium 3.2 L Chloride 109 H Carbon Dioxide 19 L Anion Gap 14 BUN 34 H Creatinine 1.4 Est GFR ( Amer) > 60 Est GFR (Non-Af Amer) 50 POC Glucose (mg/dL) Random Glucose 144 H Calcium 8.7 Phosphorus 3.1 Magnesium 2.2 Ferritin Total Bilirubin 24.7 H Direct Bilirubin AST 202 H D ALT 113 H Alkaline Phosphatase 395 H D Ammonia 91 H* Lactate Dehydrogenase 507 NT-Pro-B Natriuret Pep 276 Total Protein 7.1 Albumin 2.5 L Globulin 4.5 H Albumin/Globulin Ratio 0.6 L Amylase 78 Lipase 213 Alpha Fetoprotein Carcinoembryonic Ag Vitamin B12 Venous Blood Potassium Urine Color Urine Clarity Urine pH Ur Specific [place] Urine Protein Urine Glucose (UA) Urine Ketones Urine Blood Urine Nitrate Urine Bilirubin Urine Urobilinogen Ur Leukocyte Esterase Urine RBC (Auto) Urine Microscopic WBC Ur Squamous Epith Cells Urine Bacteria Hyaline Casts Influenza Typ A,B (EIA) Blood Type Antibody Screen Antibody Identification Antigen Identification BBK History Checked 07/04/18 07/04/18 07/04/18 17:23 17:28 21:23 WBC RBC Hgb Hct MCV MCH MCHC RDW Plt Count MPV Neut % (Auto) Lymph % (Auto) [place] % (Auto) Eos % (Auto) Baso % (Auto) Neut # (Auto) Lymph # (Auto) [place] # (Auto) Eos # (Auto) Baso # (Auto) Neutrophils % (Manual) Lymphocytes % (Manual) Monocytes % (Manual) Eosinophils % (Manual) Nucleated RBC % Platelet Estimate Hypochromasia (manual) Anisocytosis (manual) Microcytosis (manual) Target Cells Ovalocytes Schistocytes Retic Count PT INR APTT pO2 37 VBG pH 7.42 VBG pCO2 32 L VBG HCO3 22.1 VBG Total CO2 21.8 L VBG O2 Sat (Calc) 78.0 H VBG Base Excess -2.8 L VBG Potassium 3.1 L Glucose 148 H Lactate 3.9 H FiO2 21.0 Sodium 137.0 Potassium Chloride 108.0 H Carbon Dioxide Anion Gap BUN Creatinine Est GFR ( Amer) Est GFR (Non-Af Amer) POC Glucose (mg/dL) Random Glucose Calcium Phosphorus Magnesium Ferritin Total Bilirubin Direct Bilirubin AST ALT Alkaline Phosphatase Ammonia Lactate Dehydrogenase NT-Pro-B Natriuret Pep Total Protein Albumin Globulin Albumin/Globulin Ratio Amylase Lipase Alpha Fetoprotein Carcinoembryonic Ag Vitamin B12 Venous Blood Potassium 3.1 L Urine Color Urine Clarity Urine pH Ur Specific [place] Urine Protein Urine Glucose (UA) Urine Ketones Urine Blood Urine Nitrate Urine Bilirubin Urine Urobilinogen Ur Leukocyte Esterase Urine RBC (Auto) Urine Microscopic WBC Ur Squamous Epith Cells Urine Bacteria Hyaline Casts Influenza Typ A,B (EIA) Negative for flu a/b Blood Type Antibody Screen Antibody Identification Antigen Identification M Antigen - NEGATIVE BBK History Checked 07/04/18 07/04/18 07/05/18 21:54 22:44 04:25 WBC 5.7 RBC 4.18 L Hgb 11.0 L Hct 33.0 L MCV 79.1 L D MCH 26.4 L MCHC 33.3 RDW 22.0 H Plt Count 171 MPV Neut % (Auto) Lymph % (Auto) [place] % (Auto) Eos % (Auto) Baso % (Auto) Neut # (Auto) Lymph # (Auto) [place] # (Auto) Eos # (Auto) Baso # (Auto) Neutrophils % (Manual) Lymphocytes % (Manual) Monocytes % (Manual) Eosinophils % (Manual) Nucleated RBC % Platelet Estimate Hypochromasia (manual) Anisocytosis (manual) Microcytosis (manual) Target Cells Ovalocytes Schistocytes Retic Count 1.4 PT INR APTT pO2 VBG pH VBG pCO2 VBG HCO3 VBG Total CO2 VBG O2 Sat (Calc) VBG Base Excess VBG Potassium Glucose Lactate FiO2 Sodium Potassium Chloride Carbon Dioxide Anion Gap BUN Creatinine Est GFR ( Amer) Est GFR (Non-Af Amer) POC Glucose (mg/dL) 123 H Random Glucose Calcium Phosphorus Magnesium Ferritin Total Bilirubin Direct Bilirubin AST ALT Alkaline Phosphatase Ammonia Lactate Dehydrogenase NT-Pro-B Natriuret Pep Total Protein Albumin Globulin Albumin/Globulin Ratio Amylase Lipase Alpha Fetoprotein Carcinoembryonic Ag Vitamin B12 Venous Blood Potassium Urine Color Nelly Urine Clarity Slighty-cloudy Urine pH 5.0 Ur Specific [place] 1.018 Urine Protein 30 Urine Glucose (UA) Neg Urine Ketones Negative Urine Blood Small Urine Nitrate Negative Urine Bilirubin Moderate Urine Urobilinogen 1.0 Ur Leukocyte Esterase Neg Urine RBC (Auto) 8 H Urine Microscopic WBC 5 Ur Squamous Epith Cells < 1 Urine Bacteria Occ H Hyaline Casts 0-2 Influenza Typ A,B (EIA) Blood Type Antibody Screen Antibody Identification Antigen Identification BBK History Checked 07/05/18 07/05/18 07/05/18 04:25 04:25 04:25 WBC RBC Hgb Hct MCV MCH MCHC RDW Plt Count MPV Neut % (Auto) Lymph % (Auto) [place] % (Auto) Eos % (Auto) Baso % (Auto) Neut # (Auto) Lymph # (Auto) [place] # (Auto) Eos # (Auto) Baso # (Auto) Neutrophils % (Manual) Lymphocytes % (Manual) Monocytes % (Manual) Eosinophils % (Manual) Nucleated RBC % Platelet Estimate Hypochromasia (manual) Anisocytosis (manual) Microcytosis (manual) Target Cells Ovalocytes Schistocytes Retic Count PT 20.4 H INR 1.8 APTT pO2 VBG pH VBG pCO2 VBG HCO3 VBG Total CO2 VBG O2 Sat (Calc) VBG Base Excess VBG Potassium Glucose Lactate FiO2 Sodium 140 Potassium 3.2 L Chloride 110 H Carbon Dioxide 21 L Anion Gap 12 BUN 36 H Creatinine 1.3 Est GFR ( Amer) > 60 Est GFR (Non-Af Amer) 54 POC Glucose (mg/dL) Random Glucose 117 H Calcium 8.6 Phosphorus Magnesium Ferritin 356.0 Total Bilirubin 22.6 H Direct Bilirubin 20.4 H AST 180 H ALT 104 H Alkaline Phosphatase 343 H Ammonia Lactate Dehydrogenase NT-Pro-B Natriuret Pep Total Protein 6.4 Albumin 2.3 L Globulin 4.1 H Albumin/Globulin Ratio 0.5 L Amylase Lipase Alpha Fetoprotein 2.0 Carcinoembryonic Ag 3.2 H Vitamin B12 992 H Venous Blood Potassium Urine Color Urine Clarity Urine pH Ur Specific [place] Urine Protein Urine Glucose (UA) Urine Ketones Urine Blood Urine Nitrate Urine Bilirubin Urine Urobilinogen Ur Leukocyte Esterase Urine RBC (Auto) Urine Microscopic WBC Ur Squamous Epith Cells Urine Bacteria Hyaline Casts Influenza Typ A,B (EIA) Blood Type Antibody Screen Antibody Identification Antigen Identification BBK History Checked 07/05/18 05:42 WBC RBC Hgb Hct MCV MCH MCHC RDW Plt Count MPV Neut % (Auto) Lymph % (Auto) [place] % (Auto) Eos % (Auto) Baso % (Auto) Neut # (Auto) Lymph # (Auto) [place] # (Auto) Eos # (Auto) Baso # (Auto) Neutrophils % (Manual) Lymphocytes % (Manual) Monocytes % (Manual) Eosinophils % (Manual) Nucleated RBC % Platelet Estimate Hypochromasia (manual) Anisocytosis (manual) Microcytosis (manual) Target Cells Ovalocytes Schistocytes Retic Count PT INR APTT pO2 VBG pH VBG pCO2 VBG HCO3 VBG Total CO2 VBG O2 Sat (Calc) VBG Base Excess VBG Potassium Glucose Lactate FiO2 Sodium Potassium Chloride Carbon Dioxide Anion Gap BUN Creatinine Est GFR ( Amer) Est GFR (Non-Af Amer) POC Glucose (mg/dL) 121 H Random Glucose Calcium Phosphorus Magnesium Ferritin Total Bilirubin Direct Bilirubin AST ALT Alkaline Phosphatase Ammonia Lactate Dehydrogenase NT-Pro-B Natriuret Pep Total Protein Albumin Globulin Albumin/Globulin Ratio Amylase Lipase Alpha Fetoprotein Carcinoembryonic Ag Vitamin B12 Venous Blood Potassium Urine Color Urine Clarity Urine pH Ur Specific [place] Urine Protein Urine Glucose (UA) Urine Ketones Urine Blood Urine Nitrate Urine Bilirubin Urine Urobilinogen Ur Leukocyte Esterase Urine RBC (Auto) Urine Microscopic WBC Ur Squamous Epith Cells Urine Bacteria Hyaline Casts Influenza Typ A,B (EIA) Blood Type Antibody Screen Antibody Identification Antigen Identification BBK History Checked Assessment & Plan - Assessment and Plan (Free Text) Assessment: CAD-STABLE HYPERTENSION HISTORY WITH NORMAL BLOOD PRESSURE PRESENTLY OFF MEDICATION HYPERLIPIDEMIA LIVER TUMOR WITH ELEVATED LFT Plan: CONTINUE OFF AMLODIPINE, CARVEDILOL AND LISINOPRIL BLOOD PRESSURE IS GOOD OFF OF THEM HOLD ATORVASTATIN DUE TO ELEVATED LFT WILL HOLD ASPIRIN AND PLAVIX PATIENT IS TO HAVE ENDOSCOPY NO FURTHER CARDIAC WORKUP AT THE PRESENT TIME-PATIENT SHOULD PROCEED WITH GI UHYNH AND TREATMENT
[2018-07-05 13:56] LABS: FOLATE 12.7 ng/mL
[2018-07-05 17:30] LABS: BLOOD UREA NITROGEN 34 mg/dl (9-20); CALCIUM 8.6 mg/dL (8.4-10.2); GFR NON-AFRICAN AMERICAN 50
--- NOTE | 2018-07-05 18:55 | CP.PCM.CON ---
History of Present Illness - History of Present Illness History of Present Illness: 73 year old male with a history of CAD, HTN, DM, HL, liver mass, admitted with fatigue, nausea/vomiting, and obstructive jaundice. The patient notes to feeling progressively weaker over the weekend and had nausea and vomiting. He was supposed to see a doctor at [facility] in [place] today. He denies fevers and chills and notes to feeling better since coming to the hospital. Review of his medical records from April shows a liver mass concerning for malignancy and elevated tumor markers. Past medical history: CAD, HTN, DM, HL, liver mass Past surgical history: Denies Family history: Denies hematologic and oncologic problems Social history: Former tobacco, social alcohol, denies illicit drugs Allergies: NKA Review of systems: All remaining review of systems including HEENT, cardiovascular, respiratory, gastrointestinal, genitourinary, musculoskeletal, dermatologic, neurologic, and psychiatric are negative unless mentioned in the HPI. Past Patient History - Infectious Disease Hx of Infectious Diseases: None - Past Medical History & Family History Past Medical History?: Yes - Past Social History Smoking Status: Former Smoker - CARDIAC Hx Cardiac Disorders: Yes Hx Hypercholesterolemia: Yes Hx Hypertension: Yes - PULMONARY Hx Respiratory Disorders: No - NEUROLOGICAL Hx Neurological Disorder: No - HEENT Hx HEENT Problems: No - RENAL Hx Chronic Kidney Disease: No - ENDOCRINE/METABOLIC Hx Endocrine Disorders: Yes Hx Diabetes Mellitus Type 2: Yes - HEMATOLOGICAL/ONCOLOGICAL Hx Blood Disorders: No - INTEGUMENTARY Hx Dermatological Problems: No - MUSCULOSKELETAL/RHEUMATOLOGICAL Hx Musculoskeletal Disorders: No Hx Falls: No - GASTROINTESTINAL Hx Liver Failure: Yes (LIVER DISEASE) - GENITOURINARY/GYNECOLOGICAL Hx Genitourinary Disorders: No - PSYCHIATRIC Hx Psychophysiologic Disorder: No Hx Substance Use: No - SURGICAL HISTORY Hx Surgeries: Yes Hx Cholecystectomy: Yes - ANESTHESIA Hx Anesthesia: Yes Hx Anesthesia Reactions: No Hx Malignant Hyperthermia: No Has any member of the family had a problem w/ anesthesia?: No Meds Allergies/Adverse Reactions: Allergies Allergy/AdvReac Type Severity Reaction Status Date / Time No Known Allergies Allergy Verified 07/04/18 16:19 - Medications Medications: Current Medications Glipizide (Glucotrol Xl) 10 mg PO BRK [facility] Last Admin: 07/05/18 08:41 Dose: 10 mg Sodium Chloride (Sodium Chloride 0.45%) 1,000 mls @ 60 mls/hr IV .[id number] [facility] Stop: 07/06/18 00:15 Last Admin: 07/05/18 17:20 Dose: 60 mls/hr Metformin HCl (Glucophage) 850 mg PO BRKDIN [facility] Last Admin: 07/05/18 17:22 Dose: 850 mg Ondansetron HCl (Zofran Inj) 4 mg IVP Q6 PRN PRN Reason: Nausea/Vomiting Physical Exam - Head Exam Head Exam: ATRAUMATIC - Eye Exam Eye Exam: Normal appearance, Scleral icterus - ENT Exam ENT Exam: Mucous Membranes Dry - Respiratory Exam Respiratory Exam: NORMAL BREATHING PATTERN - Cardiovascular Exam Cardiovascular Exam: +S1, +S2 - GI/Abdominal Exam GI & Abdominal Exam: Normal Bowel Sounds - Extremities Exam Extremities exam: Positive for: normal inspection - Neurological Exam Neurological exam: Oriented x3 - Psychiatric Exam Psychiatric exam: Normal Affect, Normal Mood - Skin Skin Exam: Warm Results - Vital Signs Recent Vital Signs: Last Vital Signs Temp 97.4 F L 07/05/18 16:06 Pulse 96 H 07/05/18 16:06 Resp 18 07/05/18 16:06 BP 117/69 07/05/18 16:06 Pulse Ox 98 07/05/18 16:06 - Labs Result Diagrams: 07/05/18 04:25 07/05/18 16:35 Labs: Laboratory Results - last 24 hr 07/04/18 07/04/1818 17:15 17:22 21:23 WBC RBC Hgb Hct MCV MCH MCHC RDW Plt Count Retic Count PT INR Sodium Potassium Chloride Carbon Dioxide Anion Gap BUN Creatinine Est GFR ( Amer) Est GFR (Non-Af Amer) POC Glucose (mg/dL) Random Glucose Calcium Ferritin Total Bilirubin Direct Bilirubin AST ALT Alkaline Phosphatase Ammonia 91 H* Total Protein Albumin Globulin Albumin/Globulin Ratio Alpha Fetoprotein Carcinoembryonic Ag CA 19-9 Antigen Vitamin B12 Folate Urine Color Urine Clarity Urine pH Ur Specific [place] Urine Protein Urine Glucose (UA) Urine Ketones Urine Blood Urine Nitrate Urine Bilirubin Urine Urobilinogen Ur Leukocyte Esterase Urine RBC (Auto) Urine Microscopic WBC Ur Squamous Epith Cells Urine Bacteria Hyaline Casts Blood Type A POSITIVE Antibody Screen Positive Antibody Identification Anti M Antigen Identification S Antigen - NEGATIVE M Antigen - NEGATIVE BBK History Checked Patient has bt 07/04/18 07/04/18 07/05/18 21:54 22:44 04:25 WBC 5.7 RBC 4.18 L Hgb 11.0 L Hct 33.0 L MCV 79.1 L D MCH 26.4 L MCHC 33.3 RDW 22.0 H Plt Count 171 Retic Count 1.4 PT INR Sodium Potassium Chloride Carbon Dioxide Anion Gap BUN Creatinine Est GFR ( Amer) Est GFR (Non-Af Amer) POC Glucose (mg/dL) 123 H Random Glucose Calcium Ferritin Total Bilirubin Direct Bilirubin AST ALT Alkaline Phosphatase Ammonia Total Protein Albumin Globulin Albumin/Globulin Ratio Alpha Fetoprotein Carcinoembryonic Ag CA 19-9 Antigen Vitamin B12 Folate Urine Color Nelly Urine Clarity Slighty-cloudy Urine pH 5.0 Ur Specific [place] 1.018 Urine Protein 30 Urine Glucose (UA) Neg Urine Ketones Negative Urine Blood Small Urine Nitrate Negative Urine Bilirubin Moderate Urine Urobilinogen 1.0 Ur Leukocyte Esterase Neg Urine RBC (Auto) 8 H Urine Microscopic WBC 5 Ur Squamous Epith Cells < 1 Urine Bacteria Occ H Hyaline Casts 0-2 Blood Type Antibody Screen Antibody Identification Antigen Identification BBK History Checked 07/05/18 07/05/18 07/05/18 04:25 04:25 04:25 WBC RBC Hgb Hct MCV MCH MCHC RDW Plt Count Retic Count PT 20.4 H INR 1.8 Sodium 140 Potassium 3.2 L Chloride 110 H Carbon Dioxide 21 L Anion Gap 12 BUN 36 H Creatinine 1.3 Est GFR ( Amer) > 60 Est GFR (Non-Af Amer) 54 POC Glucose (mg/dL) Random Glucose 117 H Calcium 8.6 Ferritin 356.0 Total Bilirubin 22.6 H Direct Bilirubin 20.4 H AST 180 H ALT 104 H Alkaline Phosphatase 343 H Ammonia Total Protein 6.4 Albumin 2.3 L Globulin 4.1 H Albumin/Globulin Ratio 0.5 L Alpha Fetoprotein 2.0 Carcinoembryonic Ag 3.2 H CA 19-9 Antigen 136 H D Vitamin B12 992 H Folate 12.7 Urine Color Urine Clarity Urine pH Ur Specific [place] Urine Protein Urine Glucose (UA) Urine Ketones Urine Blood Urine Nitrate Urine Bilirubin Urine Urobilinogen Ur Leukocyte Esterase Urine RBC (Auto) Urine Microscopic WBC Ur Squamous Epith Cells Urine Bacteria Hyaline Casts Blood Type Antibody Screen Antibody Identification Antigen Identification BBK History Checked 07/05/18 07/05/18 07/05/18 05:42 11:02 16:18 WBC RBC Hgb Hct MCV MCH MCHC RDW Plt Count Retic Count PT INR Sodium Potassium Chloride Carbon Dioxide Anion Gap BUN Creatinine Est GFR ( Amer) Est GFR (Non-Af Amer) POC Glucose (mg/dL) 121 H 149 H 113 H Random Glucose Calcium Ferritin Total Bilirubin Direct Bilirubin AST ALT Alkaline Phosphatase Ammonia Total Protein Albumin Globulin Albumin/Globulin Ratio Alpha Fetoprotein Carcinoembryonic Ag CA 19-9 Antigen Vitamin B12 Folate Urine Color Urine Clarity Urine pH Ur Specific [place] Urine Protein Urine Glucose (UA) Urine Ketones Urine Blood Urine Nitrate Urine Bilirubin Urine Urobilinogen Ur Leukocyte Esterase Urine RBC (Auto) Urine Microscopic WBC Ur Squamous Epith Cells Urine Bacteria Hyaline Casts Blood Type Antibody Screen Antibody Identification Antigen Identification BBK History Checked 07/05/18 16:35 WBC RBC Hgb Hct MCV MCH MCHC RDW Plt Count Retic Count PT INR Sodium 140 Potassium 3.3 L Chloride 109 H Carbon Dioxide 20 L Anion Gap 14 BUN 34 H Creatinine 1.4 Est GFR ( Amer) > 60 Est GFR (Non-Af Amer) 50 POC Glucose (mg/dL) Random Glucose 122 H Calcium 8.6 Ferritin Total Bilirubin Direct Bilirubin AST ALT Alkaline Phosphatase Ammonia Total Protein Albumin Globulin Albumin/Globulin Ratio Alpha Fetoprotein Carcinoembryonic Ag CA 19-9 Antigen Vitamin B12 Folate Urine Color Urine Clarity Urine pH Ur Specific [place] Urine Protein Urine Glucose (UA) Urine Ketones Urine Blood Urine Nitrate Urine Bilirubin Urine Urobilinogen Ur Leukocyte Esterase Urine RBC (Auto) Urine Microscopic WBC Ur Squamous Epith Cells Urine Bacteria Hyaline Casts Blood Type Antibody Screen Antibody Identification Antigen Identification BBK History Checked Assessment & Plan (1) Liver mass Assessment and Plan: concerning for malignancy suspect hepatocellular carcinoma vs. cholangio carcinoma; tumor markers favor cholangiocarcinoma but will ultimately need a tissue biopsy GI evaluation for likely obstructive jaundice Had appointment to see hepatobiliary surgery at [facility]; Dr. Ojeda further treatment recommendations based on tissue biopsy; ?liver resection ?live r directed therapy, ? chemotherapy Status: Acute (2) Anemia Assessment and Plan: chronic disease will add hgb electropheresis to rule out hemoblobinopathy trait as etiology of microcytosis Status: Acute (3) Coagulopathy Assessment and Plan: likely nutritional component ? diminished synthetic function of liver Thank you for this interesting consult. Status: Acute
--- NOTE | 2018-07-05 20:23 | CON ---
DATE: 07/05/2018 REASON FOR CONSULTATION: Jaundice. HISTORY OF PRESENT ILLNESS: This is a pleasant 73-year-old man with history of hypertension, diabetes, liver mass, who essentially has an appointment today to see the specialist for whether or not he has liver lesion, unclear what test he is getting, but was dizzy last night until he came to the hospital and was admitted. The patient actually feels better. He tolerated diet. He tolerated his meds. He has no dizziness, feels better. He has profound jaundice. Otherwise, lying in comfort, in no apparent distress. Past medical history, surgical history, medications have been reviewed. REVIEW OF SYSTEMS: All other systems have been reviewed and negative apart from the HPI. PHYSICAL EXAMINATION: GENERAL: Elderly female lying in bed comfortably, in no apparent distress. VITAL SIGNS: Here in the hospital, grossly unremarkable. HEENT: Normocephalic and atraumatic. Eyes: Pupils equally reactive to light bilaterally. There is profound conjunctival icterus, no pallor. NECK: Supple. Normal range of motion. No lymphadenopathy appreciated. LUNGS: Coarse breath sounds bilaterally. HEART: S1, S2. Regular rate and rhythm. No S3. ABDOMEN: Soft. Nontender. Bowel sounds present. No rebound. No guarding. RECTAL: Deferred. EXTREMITIES: Pulses present bilaterally. SKIN: Warm, dry, and intact. NEUROLOGIC: Alert and oriented x3. LABORATORY DATA: Labs and radiology have been reviewed. WBC is 5.7, hemoglobin 11, hematocrit 33. INR ____, potassium 3.2, bilirubin is 22.6, alkaline phosphatase 343, AST 180, ALT 104. ASSESSMENT AND PLAN: This is a 73-year-old male with profound jaundice and liver mass. The patient can be discharged and [facility]. No new complaints at this point. Thank you for the consult. Roman Walters MD/ PhD
--- NOTE | 2018-07-05 20:53 | CP.PCM.HP ---
History of Present Illness - History of Present Illness History of Present Illness: 73 yo with hx of Liver mass admitted for dizziness and GI sx Pt scheduled for ERCP and EUS at [place] today Present on Admission - Present on Admission Any Indicators Present on Admission: No Past Patient History - Infectious Disease Hx of Infectious Diseases: None - Past Medical History & Family History Past Medical History?: Yes - Past Social History Smoking Status: Former Smoker - CARDIAC Hx Cardiac Disorders: Yes Hx Hypercholesterolemia: Yes Hx Hypertension: Yes - PULMONARY Hx Respiratory Disorders: No - NEUROLOGICAL Hx Neurological Disorder: No - HEENT Hx HEENT Problems: No - RENAL Hx Chronic Kidney Disease: No - ENDOCRINE/METABOLIC Hx Endocrine Disorders: Yes Hx Diabetes Mellitus Type 2: Yes - HEMATOLOGICAL/ONCOLOGICAL Hx Blood Disorders: No - INTEGUMENTARY Hx Dermatological Problems: No - MUSCULOSKELETAL/RHEUMATOLOGICAL Hx Musculoskeletal Disorders: No Hx Falls: No - GASTROINTESTINAL Hx Liver Failure: Yes (LIVER DISEASE) - GENITOURINARY/GYNECOLOGICAL Hx Genitourinary Disorders: No - PSYCHIATRIC Hx Psychophysiologic Disorder: No Hx Substance Use: No - SURGICAL HISTORY Hx Surgeries: Yes Hx Cholecystectomy: Yes - ANESTHESIA Hx Anesthesia: Yes Hx Anesthesia Reactions: No Hx Malignant Hyperthermia: No Has any member of the family had a problem w/ anesthesia?: No Meds Allergies/Adverse Reactions: Allergies Allergy/AdvReac Type Severity Reaction Status Date / Time No Known Allergies Allergy Verified 07/04/18 16:19 Physical Exam - Respiratory Exam Respiratory Exam: NORMAL BREATHING PATTERN - Cardiovascular Exam Cardiovascular Exam: REGULAR RHYTHM - GI/Abdominal Exam GI & Abdominal Exam: Normal Bowel Sounds Results - Vital Signs Recent Vital Signs: Last Vital Signs Temp 97 F L 07/05/18 20:09 Pulse 100 H 07/05/18 20:09 Resp 20 07/05/18 20:09 BP 112/72 07/05/18 20:09 Pulse Ox 96 07/05/18 20:09 - Labs Result Diagrams: 07/05/18 04:25 07/05/18 16:35 Labs: Laboratory Results - last 24 hr 07/04/18 07/04/18 07/04/18 17:15 17:22 21:23 WBC RBC Hgb Hct MCV MCH MCHC RDW Plt Count Retic Count PT INR Sodium Potassium Chloride Carbon Dioxide Anion Gap BUN Creatinine Est GFR ( Amer) Est GFR (Non-Af Amer) POC Glucose (mg/dL) Random Glucose Calcium Ferritin Total Bilirubin Direct Bilirubin AST ALT Alkaline Phosphatase Ammonia 91 H* Total Protein Albumin Globulin Albumin/Globulin Ratio Alpha Fetoprotein Carcinoembryonic Ag CA 19-9 Antigen Vitamin B12 Folate Urine Color Urine Clarity Urine pH Ur Specific [place] Urine Protein Urine Glucose (UA) Urine Ketones Urine Blood Urine Nitrate Urine Bilirubin Urine Urobilinogen Ur Leukocyte Esterase Urine RBC (Auto) Urine Microscopic WBC Ur Squamous Epith Cells Urine Bacteria Hyaline Casts Blood Type A POSITIVE Antibody Screen Positive Antibody Identification Anti M Antigen Identification S Antigen - NEGATIVE M Antigen - NEGATIVE BBK History Checked Patient has bt 07/04/18 07/04/18 07/05/18 21:54 22:44 04:25 WBC 5.7 RBC 4.18 L Hgb 11.0 L Hct 33.0 L MCV 79.1 L D MCH 26.4 L MCHC 33.3 RDW 22.0 H Plt Count 171 Retic Count 1.4 PT INR Sodium Potassium Chloride Carbon Dioxide Anion Gap BUN Creatinine Est GFR ( Amer) Est GFR (Non-Af Amer) POC Glucose (mg/dL) 123 H Random Glucose Calcium Ferritin Total Bilirubin Direct Bilirubin AST ALT Alkaline Phosphatase Ammonia Total Protein Albumin Globulin Albumin/Globulin Ratio Alpha Fetoprotein Carcinoembryonic Ag CA 19-9 Antigen Vitamin B12 Folate Urine Color Nelly Urine Clarity Slighty-cloudy Urine pH 5.0 Ur Specific [place] 1.018 Urine Protein 30 Urine Glucose (UA) Neg Urine Ketones Negative Urine Blood Small Urine Nitrate Negative Urine Bilirubin Moderate Urine Urobilinogen 1.0 Ur Leukocyte Esterase Neg Urine RBC (Auto) 8 H Urine Microscopic WBC 5 Ur Squamous Epith Cells < 1 Urine Bacteria Occ H Hyaline Casts 0-2 Blood Type Antibody Screen Antibody Identification Antigen Identification BBK History Checked 07/05/18 07/05/18 07/05/18 04:25 04:25 04:25 WBC RBC Hgb Hct MCV MCH MCHC RDW Plt Count Retic Count PT 20.4 H INR 1.8 Sodium 140 Potassium 3.2 L Chloride 110 H Carbon Dioxide 21 L Anion Gap 12 BUN 36 H Creatinine 1.3 Est GFR ( Amer) > 60 Est GFR (Non-Af Amer) 54 POC Glucose (mg/dL) Random Glucose 117 H Calcium 8.6 Ferritin 356.0 Total Bilirubin 22.6 H Direct Bilirubin 20.4 H AST 180 H ALT 104 H Alkaline Phosphatase 343 H Ammonia Total Protein 6.4 Albumin 2.3 L Globulin 4.1 H Albumin/Globulin Ratio 0.5 L Alpha Fetoprotein 2.0 Carcinoembryonic Ag 3.2 H CA 19-9 Antigen 136 H D Vitamin B12 992 H Folate 12.7 Urine Color Urine Clarity Urine pH Ur Specific [place] Urine Protein Urine Glucose (UA) Urine Ketones Urine Blood Urine Nitrate Urine Bilirubin Urine Urobilinogen Ur Leukocyte Esterase Urine RBC (Auto) Urine Microscopic WBC Ur Squamous Epith Cells Urine Bacteria Hyaline Casts Blood Type Antibody Screen Antibody Identification Antigen Identification BBK History Checked 07/05/18 07/05/18 07/05/18 05:42 11:02 16:18 WBC RBC Hgb Hct MCV MCH MCHC RDW Plt Count Retic Count PT INR Sodium Potassium Chloride Carbon Dioxide Anion Gap BUN Creatinine Est GFR ( Amer) Est GFR (Non-Af Amer) POC Glucose (mg/dL) 121 H 149 H 113 H Random Glucose Calcium Ferritin Total Bilirubin Direct Bilirubin AST ALT Alkaline Phosphatase Ammonia Total Protein Albumin Globulin Albumin/Globulin Ratio Alpha Fetoprotein Carcinoembryonic Ag CA 19-9 Antigen Vitamin B12 Folate Urine Color Urine Clarity Urine pH Ur Specific [place] Urine Protein Urine Glucose (UA) Urine Ketones Urine Blood Urine Nitrate Urine Bilirubin Urine Urobilinogen Ur Leukocyte Esterase Urine RBC (Auto) Urine Microscopic WBC Ur Squamous Epith Cells Urine Bacteria Hyaline Casts Blood Type Antibody Screen Antibody Identification Antigen Identification BBK History Checked 07/05/18 16:35 WBC RBC Hgb Hct MCV MCH MCHC RDW Plt Count Retic Count PT INR Sodium 140 Potassium 3.3 L Chloride 109 H Carbon Dioxide 20 L Anion Gap 14 BUN 34 H Creatinine 1.4 Est GFR ( Amer) > 60 Est GFR (Non-Af Amer) 50 POC Glucose (mg/dL) Random Glucose 122 H Calcium 8.6 Ferritin Total Bilirubin Direct Bilirubin AST ALT Alkaline Phosphatase Ammonia Total Protein Albumin Globulin Albumin/Globulin Ratio Alpha Fetoprotein Carcinoembryonic Ag CA 19-9 Antigen Vitamin B12 Folate Urine Color Urine Clarity Urine pH Ur Specific [place] Urine Protein Urine Glucose (UA) Urine Ketones Urine Blood Urine Nitrate Urine Bilirubin Urine Urobilinogen Ur Leukocyte Esterase Urine RBC (Auto) Urine Microscopic WBC Ur Squamous Epith Cells Urine Bacteria Hyaline Casts Blood Type Antibody Screen Antibody Identification Antigen Identification BBK History Checked Assessment & Plan - Assessment and Plan (Free Text) Assessment: Dizziness N&V Dehydration IVF Cardiology Painless obstructive jaundice Liver mass HCC vs cholangiocarcinoma needs ECP EUS GI Oncology D/W family [facility] - Date & Time Date: 07/05/18 Time: 22:22
[2018-07-06 06:45] LABS: CALCIUM 8.5 mg/dL (8.4-10.2)
[2018-07-06 06:52] LABS: ALB/GLOB RATIO 0.6 (1.0-2.1); ALBUMIN 2.4 g/dL (3.5-5.0)
[2018-07-06] MEDS: GlipiZIDE 10 mg SR Tab PO SCH (09:19)
--- NOTE | 2018-07-06 09:23 | CP.PCM.PN ---
Subjective - Date & Time of Evaluation Date of Evaluation: 07/06/18 Time of Evaluation: 09:45 - Subjective Subjective: NO CHEST PAIN OR SOB FEELS BETTER Objective - Vital Signs/Intake and Output Vital Signs (last 24 hours): Temp Pulse Resp BP Pulse Ox 97.7 F 97 H 20 118/78 97 07/06/18 08:20 07/06/18 08:20 07/06/18 08:20 07/06/18 08:20 07/06/18 08:20 - Medications Medications: Current Medications Glipizide (Glucotrol Xl) 10 mg PO BRK [facility] Last Admin: 07/06/18 09:19 Dose: 10 mg Metformin HCl (Glucophage) 850 mg PO BRKDIN [facility] Last Admin: 07/06/18 09:19 Dose: 850 mg Ondansetron HCl (Zofran Inj) 4 mg IVP Q6 PRN PRN Reason: Nausea/Vomiting - Labs Labs: 07/05/18 04:25 07/06/18 04:10 PT 20.4 Seconds (9.8-13.1) H 07/05/18 04:25 INR 1.8 07/05/18 04:25 APTT 33.2 Seconds (25.6-37.1) 07/04/18 17:22 - Respiratory Exam Respiratory Exam: Clear to Ausculation Bilateral - Cardiovascular Exam Cardiovascular Exam: REGULAR RHYTHM, +S1, +S2 - Extremities Exam Additional comments: NO LE EDEMA - Additional Findings Additional findings: GI AND ONCOLOGY NOTES REVIEWED Assessment and Plan - Assessment and Plan (Free Text) Assessment: LIVER TUMOR CAD-STABLE HYPERTENSION TYPE 2 DM Plan: THE PATIENT CAN BE DISCHARGED FROM THE [facility]IAC [facility] WITH GI FU AT [facility]
[2018-07-06 11:13] LABS: MEAN CELL VOLUME 78.2 fl (80.0-94.0); MEAN CORPUSCULAR HEMOGLOBIN 26.2 pg (27.0-31.0); MEAN CORPUSCULAR HGB CONC 33.6 g/dL (33.0-37.0); RBC 4.19 Mil/uL (4.40-5.90); RED CELL DISTRIBUTION WIDTH 22.8 % (11.5-14.5); WHITE BLOOD COUNT 6.8 K/uL (4.8-10.8)
[2018-07-06 11:22] LABS: ALT/SGPT 101 U/L (21-72); AST/SGOT 194 U/L (17-59); BLOOD UREA NITROGEN 40 mg/dl (9-20); CALCIUM 8.4 mg/dL (8.4-10.2); GFR NON-AFRICAN AMERICAN 50
[2018-07-06 11:30] LABS: ALB/GLOB RATIO 0.6 (1.0-2.1); ALBUMIN 2.3 g/dL (3.5-5.0)
[2018-07-06] MEDS ORDERED: Potassium Chloride 20 mEq ER Tab PO ONE (11:51)
--- NOTE | 2018-07-06 16:19 | CP.PCM.PN ---
Subjective - Date & Time of Evaluation Date of Evaluation: 07/06/18 Time of Evaluation: 22:22 - Subjective Subjective: Above noted Objective - Vital Signs/Intake and Output Vital Signs (last 24 hours): Temp Pulse Resp BP Pulse Ox 98 F 101 H 18 115/71 99 07/06/18 15:54 07/06/18 15:54 07/06/18 15:54 07/06/18 15:54 07/06/18 15:54 - Medications Medications: Current Medications Glipizide (Glucotrol Xl) 10 mg PO BRK [facility] Last Admin: 07/06/18 09:19 Dose: 10 mg Metformin HCl (Glucophage) 850 mg PO BRKDIN [facility] Last Admin: 07/06/18 09:19 Dose: 850 mg Ondansetron HCl (Zofran Inj) 4 mg IVP Q6 PRN PRN Reason: Nausea/Vomiting - Labs Labs: 07/06/18 11:02 07/06/18 11:02 PT 20.4 Seconds (9.8-13.1) H 07/05/18 04:25 INR 1.8 07/05/18 04:25 APTT 33.2 Seconds (25.6-37.1) 07/04/18 17:22 - Respiratory Exam Respiratory Exam: NORMAL BREATHING PATTERN - Cardiovascular Exam Cardiovascular Exam: REGULAR RHYTHM - GI/Abdominal Exam GI & Abdominal Exam: Normal Bowel Sounds Assessment and Plan - Assessment and Plan (Free Text) Assessment: Dizziness N&V Dehydration IVF Cardiology Painless obstructive jaundice Liver mass HCC vs cholangiocarcinoma needs ECP EUS GI Oncology D/W family [facility] and specialists
--- NOTE | 2018-07-06 16:28 | CP.PCM.PN ---
Subjective - Date & Time of Evaluation Date of Evaluation: 07/06/18 Time of Evaluation: 16:27 - Subjective Subjective: no overnight events Objective - Vital Signs/Intake and Output Vital Signs (last 24 hours): Temp Pulse Resp BP Pulse Ox 98 F 101 H 18 115/71 99 07/06/18 15:54 07/06/18 15:54 07/06/18 15:54 07/06/18 15:54 07/06/18 15:54 - Medications Medications: Current Medications Glipizide (Glucotrol Xl) 10 mg PO BRK [facility] Last Admin: 07/06/18 09:19 Dose: 10 mg Metformin HCl (Glucophage) 850 mg PO BRKDIN [facility] Last Admin: 07/06/18 09:19 Dose: 850 mg Ondansetron HCl (Zofran Inj) 4 mg IVP Q6 PRN PRN Reason: Nausea/Vomiting - Labs Labs: 07/06/18 11:02 07/06/18 11:02 PT 20.4 Seconds (9.8-13.1) H 07/05/18 04:25 INR 1.8 07/05/18 04:25 APTT 33.2 Seconds (25.6-37.1) 07/04/18 17:22 - Head Exam Head Exam: NORMOCEPHALIC - Eye Exam Eye Exam: Scleral icterus - Neck Exam Neck Exam: Normal Inspection - Respiratory Exam Respiratory Exam: Clear to Ausculation Bilateral, NORMAL BREATHING PATTERN - Cardiovascular Exam Cardiovascular Exam: REGULAR RHYTHM - GI/Abdominal Exam GI & Abdominal Exam: Soft, Normal Bowel Sounds Assessment and Plan - Assessment and Plan (Free Text) Assessment: 73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
--- NOTE | 2018-07-06 16:32 | PQF ---
PROVIDER RESPONSE TEXT: Hepatic encephalopathy REVIEWER QUERY TEXT: Conflicting Documentation Clarification The ER has documentation of :" Hepatic Encephalopathy " . Ammonia level 91 ( 16-60) . Alert but weak. Lactulose given. Please clarify if the Hepatic Encephalopathy is ruled in or ruled out. A single mention or documentation of multiple diagnoses for the same clinical presentation appears in the record. Please clarify the diagnosis/diagnoses. Please also document if the condition is: -- Confirmed and current -- Confirmed, treated and resolved -- Ruled out -- Other, please specify The patient's Clinical Indicators include: Admitted with lightheadedness , fatigue and vomited . Query created by: Carmela Pruitt on 07/06/2018 11:09 AM Electronically signed by: Bulmaro Bautista MD 07/06/2018 4:29 PM
[2018-07-06] MEDS ORDERED: Glucagon Recombinant 1 mg Inj IM PRN (22:51)
[2018-07-06] MEDS ORDERED: Dextrose 50% SYRINGE Inj (50 ml) IV PRN (22:51)
--- NOTE | 2018-07-07 02:40 | CP.PCM.PCO ---
Addendum Addendum: 07/07/18 02:49 Called by nurse due to patient had a coffee ground emesis x1 and was c/o sob and wheezing. Patient denies chest pain, palpitations, abdominal pain, dizziness or headache VS: BP 128/80, HR 120, O2 sat 98 on NC, afebrile Gen: NAD Lungs: decreased breath sounds B/L, diffuse wheezing CVS: RRR, tachy Plan: CBC CXR EKG: sinus tachycardia, no acute changes Nesha Solumedrol 125 mg IV once Lasix 40 mg IV once
[2018-07-07] MEDS ORDERED: Albuterol-Ipratrop 3 mg / 0.5 (3 ml) UD INH STA ×2 (02:46→03:27)
[2018-07-07] MEDS ORDERED: Albuterol-Ipratrop 3 mg / 0.5 (3 ml) UD INH PRN (03:28)
[2018-07-07 03:31] LABS: BASO # 0.1 K/uL (0.0-0.2); BASO % 0.7 % (0.0-2.0); CALCIUM 8.7 mg/dL (8.4-10.2); EOS # 0.1 K/uL (0.0-0.7); EOS % 1.5 % (0.0-4.0); HEMOGLOBIN 11.7 g/dL (12.0-18.0); LYMPH # 0.5 K/uL (1.0-4.3); LYMPH % 5.9 % (20.0-40.0); MEAN CELL VOLUME 78.9 fl (80.0-94.0); MEAN CORPUSCULAR HEMOGLOBIN 26.3 pg (27.0-31.0); MEAN CORPUSCULAR HGB CONC 33.4 g/dL (33.0-37.0); MONO % 11.8 % (0.0-10.0); NEUT # 6.5 K/uL (1.8-7.0); NEUT % 80.1 % (50.0-75.0); NRBC % 0.1 % (0.0-0.0); RBC 4.45 Mil/uL (4.40-5.90); RED CELL DISTRIBUTION WIDTH 22.7 % (11.5-14.5); WHITE BLOOD COUNT 8.2 K/uL (4.8-10.8)
[2018-07-07 03:38] LABS: ALB/GLOB RATIO 0.6 (1.0-2.1); ALBUMIN 2.4 g/dL (3.5-5.0)
--- NOTE | 2018-07-07 08:47 | CP.PCM.PN ---
Subjective - Date & Time of Evaluation Date of Evaluation: 07/07/18 Time of Evaluation: 08:15 - Subjective Subjective: NO CHEST PAIN OR SOB Objective - Vital Signs/Intake and Output Vital Signs (last 24 hours): Temp Pulse Resp BP Pulse Ox 97.2 F L 114 H 20 105/60 100 07/07/18 08:24 07/07/18 08:24 07/07/18 08:24 07/07/18 08:24 07/07/18 08:24 - Medications Medications: Current Medications Albuterol/Ipratropium (Duoneb 3 Mg/0.5 Mg (3 Ml) Ud) 3 ml INH RQ4 PRN PRN Reason: Shortness of Breath Dextrose (Dextrose 50% Inj) 0 ml IV STAT PRN; Protocol PRN Reason: Hypoglycemia Protocol Last Admin: 07/06/18 23:04 Dose: 50 ml Dextrose (Glutose 15) 0 gm PO ONCE PRN; Protocol PRN Reason: Hypoglycemia Protocol Glipizide (Glucotrol Xl) 10 mg PO BRK [facility] Last Admin: 07/06/18 09:19 Dose: 10 mg Glucagon (Glucagen Diagnostic Kit) 0 mg IM STAT PRN; Protocol PRN Reason: Hypoglycemia Protocol Metformin HCl (Glucophage) 850 mg PO BRKDIN [facility] Last Admin: 07/06/18 16:55 Dose: 850 mg Ondansetron HCl (Zofran Inj) 4 mg IVP Q4 PRN PRN Reason: Nausea/Vomiting Last Admin: 07/07/18 02:02 Dose: 4 mg - Labs Labs: 07/07/18 02:40 07/07/18 02:40 PT 20.4 Seconds (9.8-13.1) H 07/05/18 04:25 INR 1.8 07/05/18 04:25 APTT 33.2 Seconds (25.6-37.1) 07/04/18 17:22 - Respiratory Exam Respiratory Exam: Clear to Ausculation Bilateral - Cardiovascular Exam Cardiovascular Exam: REGULAR RHYTHM, +S1, +S2 - Extremities Exam Additional comments: NO LE EDEMA - Additional Findings Additional findings: DR LEVY'S NOTE SEEN GI NOTE REVIEWED Assessment and Plan - Assessment and Plan (Free Text) Assessment: CAD-STABLE HYPERTENSION HISTORY LIVER TUMOR Plan: GI RECOMMENDS FU AT [facility]
--- NOTE | 2018-07-07 09:50 | RAD ---
Date of service: 07/07/2018 HISTORY: sob COMPARISON: 07/04/2018 FINDINGS: LUNGS: No active pulmonary disease. PLEURA: No significant pleural effusion identified, no pneumothorax apparent. CARDIOVASCULAR: No aortic atherosclerotic calcification present. Normal cardiac size. No pulmonary vascular congestion. OSSEOUS STRUCTURES: No significant abnormalities. VISUALIZED UPPER ABDOMEN: Normal. OTHER FINDINGS: None. IMPRESSION: No active disease.
[2018-07-07 10:00] LABS: MCH 26.8 pg (27.0-33.0); MCV 79.8 fL (80.0-100.0)
[2018-07-07] MEDS ORDERED: Lactulose 10 gm/15 ml (Rectal Use) PR SCH ×2 (11:15→11:30)
--- NOTE | 2018-07-07 11:20 | CP.PCM.PCO ---
Assessment & Plan - Assessment and Plan (Free Text) Assessment: pt. more lethargic this am, Ammonia level 200 Lactulose started s/p NEUROSURGICAL NURSE; s/p Enulose NH, pt. more awake/ alert As per , patient's family is requesting transfer to [place] for f/u hepatobilliary sx ( spoke with Erich, son in law) pt. was scheduled for f/u EUS at [facility] on Wednesday but missed appointment patient's family is requesting transfer under Dr.Ellen Crystal Magdaleno (surgical onc hepatobilliary) 's office called and spoke with RN at [phone] Awaiting callback from - will cont. to f/u 3 pm- received call from , case d/w who is accepting patient for transfer pending bed availability pt. cleared for transfer by above d/w patient's family, who agree with above
--- NOTE | 2018-07-07 11:22 | PCM.RRT ---
<Jaciel Dimas - Last Filed: 07/07/18 11:34> PROJECT MANAGER/TEAM COACH Nurse Assessment - Situation PROJECT MANAGER/TEAM COACH Responder Arrival Time: 11:01 Location: telemetry Room Number: 405-2 PROJECT MANAGER/TEAM COACH Reason for Call: Change in Mental Status PROJECT MANAGER/TEAM COACH Called By: RN - IV IV Inserted during PROJECT MANAGER/TEAM COACH?: No - Respiratory Oxygen Delivery Method: Nasal Cannula Received Nebulizer Treatments: No Was the Patient Ventilated with Bag/Mask 100% O2?: No Secretions Suctioned?: No Was the Patient Intubated?: No Was the Patient Placed on a Ventilator?: No - Medication Medications Administered During PROJECT MANAGER/TEAM COACH: Lactulose enema to start - Diagnostic Test Ordered EKG: No Chest X-Ray: No CT Scan: No CPR started during PROJECT MANAGER/TEAM COACH?: No - Vital Signs Vital Signs: Rapid Response Vital Sign Blood Pressure 129/78 Pulse Rate 118 Respiratory Rate 20 Temperature 98.4 F Oxygen Saturation 98 - Time PROJECT MANAGER/TEAM COACH Ended Time PROJECT MANAGER/TEAM COACH Ended: 11:12 - Vital Signs at end of PROJECT MANAGER/TEAM COACH Vital Signs at end of PROJECT MANAGER/TEAM COACH: Rapid Response End Vital Sign Blood Pressure 121/84 Pulse Rate 109 Respiratory Rate 20 Temperature 98.4 F O2 Sat by Pulse Oximetry 98 - Recommendations PROJECT MANAGER/TEAM COACH Level of Care Recommendations: Remain in current setting I.Reason for PROJECT MANAGER/TEAM COACH - A) Acute Change in Patient: (Select all that apply): Acute change in mental status Subjective: 73 year old male with a PMHx of CAD, HTN, DM, HL, liver mass, admitted with fatigue, nausea/vomiting, and obstructive jaundice. PROJECT MANAGER/TEAM COACH called on 07/07/18 at 11:01 by Nurse due to change in mental status. PROJECT MANAGER/TEAM COACH team arrived on site with Dr. Chu. Patient evaluated. Patient alert, awake, responding/able to follow verbal commands. Ammonia level 200 today(increased from 91 on 07/05), known Dx of hepatic encephalopathy. Vitals: BP 129/78, HR 118, O2 98%, Gluc 159. Rifaximin and Lactulose ordered. Patient awaiting transfer to [facility] for further evaluation and treatment of hepatic mass. INSURANCE APPRAISER Carter aware. - Neurological Status (Select all that apply): Alert, Responsive, Oriented, Verbal, Follows Commands, Lethargic. absent: Confused Plan - Assessment of Findings&Treatment Plan 73 year old male with a PMHx of CAD, HTN, DM, HL, liver mass, admitted with fatigue, nausea/vomiting, obstructive jaundice and hepatic encephalopathy. PROJECT MANAGER/TEAM COACH called change in mental status. Ammonia level 200 today(increased from 91 on 07/05). Patient able to follow commands. Vitals: BP 129/78, HR 118, O2 98%, Gluc 159. Medications ordered - Rifaximin 550 PO BID - Lactulose 200 gm NH Q8hr(Switch to PO once patient able to take PO) Monitor patient for acute changes Patient awaiting transfer to [facility] for further evaluation and treatment of hepatic mass. Trevon RANDLE aware. <Shahana Chu - Last Filed: 07/07/18 14:44> PROJECT MANAGER/TEAM COACH Nurse Assessment - Vital Signs Vital Signs: Rapid Response Vital Sign Blood Pressure 129/78 Pulse Rate 118 Respiratory Rate 20 Temperature 98.4 F Oxygen Saturation 98 - Vital Signs at end of PROJECT MANAGER/TEAM COACH Vital Signs at end of PROJECT MANAGER/TEAM COACH: Rapid Response End Vital Sign Blood Pressure 121/84 Pulse Rate 109 Respiratory Rate 20 Temperature 98.4 F O2 Sat by Pulse Oximetry 98 Attending/Attestation - Attestation I have personally seen and examined this patient.: Yes I have fully participated in the care of the patient.: Yes I have reviewed all pertinent clinical information, including history, physical exam and plan: Yes Notes (Text): AMS likely due to Hepatic Encephalopathy - pt moves all extremities, follows simple commands, no FND - elevated Ammonia levl - start Lactulose Enema, once able to take PO start Rifaximin
--- NOTE | 2018-07-07 12:46 | CP.PCM.PN ---
Subjective - Date & Time of Evaluation Date of Evaluation: 07/07/18 Time of Evaluation: 12:00 - Subjective Subjective: Lethargic but arousable at bedside requesting transfer to [place] Objective - Vital Signs/Intake and Output Vital Signs (last 24 hours): Temp Pulse Resp BP Pulse Ox 98.4 F 108 H 20 106/70 98 07/07/18 12:26 07/07/18 12:26 07/07/18 12:26 07/07/18 12:26 07/07/18 12:26 - Medications Medications: Current Medications Albuterol/Ipratropium (Duoneb 3 Mg/0.5 Mg (3 Ml) Ud) 3 ml INH RQ4 PRN PRN Reason: Shortness of Breath Dextrose (Dextrose 50% Inj) 0 ml IV STAT PRN; Protocol PRN Reason: Hypoglycemia Protocol Last Admin: 07/06/18 23:04 Dose: 50 ml Dextrose (Glutose 15) 0 gm PO ONCE PRN; Protocol PRN Reason: Hypoglycemia Protocol Glipizide (Glucotrol Xl) 10 mg PO BRK [facility] Last Admin: 07/06/18 09:19 Dose: 10 mg Glucagon (Glucagen Diagnostic Kit) 0 mg IM STAT PRN; Protocol PRN Reason: Hypoglycemia Protocol Lactulose (Enulose) 20 gm PO TID [facility] Last Admin: 07/07/18 10:54 Dose: 20 gm Lactulose (Generlac) 200 gm SD Q8H [facility] Metformin HCl (Glucophage) 850 mg PO BRKDIN [facility] Last Admin: 07/07/18 08:58 Dose: Not Given Ondansetron HCl (Zofran Inj) 4 mg IVP Q4 PRN PRN Reason: Nausea/Vomiting Last Admin: 07/07/18 02:02 Dose: 4 mg Rifaximin (Xifaxan) 550 mg PO BID [facility]; Protocol - Labs Labs: 07/07/18 02:40 07/07/18 02:40 PT 20.4 Seconds (9.8-13.1) H 07/05/18 04:25 INR 1.8 07/05/18 04:25 APTT 33.2 Seconds (25.6-37.1) 07/04/18 17:22 - Head Exam Head Exam: ATRAUMATIC - Eye Exam Eye Exam: Scleral icterus - ENT Exam ENT Exam: Mucous Membranes Dry - Respiratory Exam Respiratory Exam: NORMAL BREATHING PATTERN - Cardiovascular Exam Cardiovascular Exam: +S1, +S2 - GI/Abdominal Exam GI & Abdominal Exam: Normal Bowel Sounds Assessment and Plan (1) Liver mass Assessment & Plan: likely malignancy tumor markers suspicious for cholangiocarcinoma liver function declining for transfer Status: Acute (2) Anemia Assessment & Plan: chronic disease Status: Acute (3) Coagulopathy Assessment & Plan: liver disease and likely nutritional component Status: Acute
[2018-07-07] MEDS ORDERED: Phytonadione 10 mg/ml Inj (Adult) IVPB ONE (17:53)
[2018-07-07] MEDS ORDERED: Phytonadione 20 MG in Dextrose 5% In Water 50 ML IV ONE (18:00)
--- NOTE | 2018-07-07 18:16 | CP.CCUPN ---
CCU Subjective - Physician Review Subjective (Free Text): 73M admitted 3 days ago for vomiting and lightheadedness. PMH significant for liver mass awaiting for eval at [facility]. Mild anemia, azotemia, and hepatic encephalopathy found on admission. Patient has been awaiting transfer to [facility] for ERCP and EUS for mgmt of obstructive Hepatic tumor. TONGUE LINING STITCHER called today for lethargy and recurrent N/V with coffee ground material. Presently being fed by , no cough nor dysphagia observed, able to sip fluids with a straw as well. Responds in broken-Israeli to simple questions, aware that he is being seen by me at the direction of Dr. Bautista. states he may be going to [place] tomorrow. Other vitals and I/O's reviewed. Afebrile, SBP 100s, HR 100 sinus, SPo2 99% on RA ROS: No other pertinent negs or positives on 10+ system review. Allergies: NKDA Home Meds: Norvasc, ASA, Plavix, Lipitor, Coreg, Glipizide, Lisinopril, HTCZ, Metformin. Current Hosp meds: Glipizide, Lactulose, Rifaximin, Metformin, Zofran prn PMSFH: HTN, CAD, Hyperlipidemia, DM II, Gallstones and a hepatic tumor with hepatic ductal obstruction. All other Nursing and physician documentation reviewed to date; no new pertinent info noted relevant to current medical problems. EXAM- HEENT: + icterus, no gaze preference, Pupils 3 mm and reactive, tongue dry, + gag. NECK: no JVD visible, supple, carotids equal upstroke bilat/no bruit CHEST: decreased BS at the bases, no wheezes audible HEART: regular, distant, S1S2, no rubs ABD: soft, no distension, no focal tenderness, no tympany, no guarding, no organomegaly, BS hypoactive. EXT: +4 LE edema, no mottling; no calf tenderness or palpable cords, distal pulses intact and symmetrical, no cyanosis, no mottling. NEURO: no focal motor deficits, sensory intact, SKIN: jaundiced, no rashes, warm and dry LABS: WBC= 8.2 HGB= 11.7 HC, MC indices PLTs= 203K Coags: INR 1.8 on 12/18/18 Na= 136 K= 3.8 HN=292 HCO3= 18 BUN/Cr= 45/1.6 BS= 76 TBili= 19.9 AST= 190 ALT= 99 ALK Phos = 342 Ammonia = 200 CXR: essentially clear, left hemidiaphragm poorly visualized, no gross consolidation (my interp). IMPRESSION / MAJOR PROBLEMS NOW: 1. UGI Bleed: non-active bleeding now. 2. Hepatic Encephalopathy 3. Hepatic Tumor (Cholangiocarcinoma) with Obstructive Jaundice 4. Azotemia / Dehydration 5. Anemia of chronic disease PLAN: 1. At this present time if a bed were available at [place], he is stable for inter-hospital transport using an ACLS ambulance service, without any special precaution for airway protection such as oral intubation and MV support. Will need ongoing re-eval and Neurochecks Q4H. Watch for need for airway protection if lethargy worsens. Lactulose already ordered via PO and NH routes. 2. Serial H/H, check repeat coags, Vit K ordered in the interim for elevated INR at 1.8. 3. IV PPi therapy 4. IVF hydration 5. Clarify any Advance Directives, full Code status for now. Arrangements already in progress pending transfer bed availability at [facility] ([facility]) [facility].
[2018-07-07 20:26] LABS: BASO # 0.1 K/uL (0.0-0.2); BASO % 1.1 % (0.0-2.0); EOS % 0.1 % (0.0-4.0); HEMOGLOBIN 11.2 g/dL (12.0-18.0); LYMPH # 0.3 K/uL (1.0-4.3); MEAN CELL VOLUME 77.7 fl (80.0-94.0); MEAN CORPUSCULAR HEMOGLOBIN 26.1 pg (27.0-31.0); MEAN CORPUSCULAR HGB CONC 33.7 g/dL (33.0-37.0); MEAN PLATELET VOLUME 8.5 fl (7.2-11.7); MONO # 0.6 K/uL (0.0-0.8); NEUT % 87.8 % (50.0-75.0); NRBC % 0.1 % (0.0-0.0); PLATELET COUNT 197 K/uL (130-400); RED CELL DISTRIBUTION WIDTH 23.3 % (11.5-14.5)
[2018-07-07 20:31] LABS: INR 1.9; PROTHROMBIN TIME 21.4 Seconds (9.8-13.1)
[2018-07-07 20:33] LABS: PARTIAL THROMBOPLASTIN TIME 34.4 Seconds (25.6-37.1)
--- NOTE | 2018-07-07 20:58 | CP.PCM.PN ---
Subjective - Date & Time of Evaluation Date of Evaluation: 07/07/18 Time of Evaluation: 22:22 - Subjective Subjective: Above events noted Multiple calls to family and hospital Awaiting transfer to [place] Objective - Vital Signs/Intake and Output Vital Signs (last 24 hours): Temp Pulse Resp BP Pulse Ox 97.6 F 117 H 18 98/63 L 97 07/07/18 20:07 07/07/18 20:07 07/07/18 20:07 07/07/18 20:07 07/07/18 20:07 - Medications Medications: Current Medications Albuterol/Ipratropium (Duoneb 3 Mg/0.5 Mg (3 Ml) Ud) 3 ml INH RQ4 PRN PRN Reason: Shortness of Breath Dextrose (Dextrose 50% Inj) 0 ml IV STAT PRN; Protocol PRN Reason: Hypoglycemia Protocol Last Admin: 07/06/18 23:04 Dose: 50 ml Dextrose (Glutose 15) 0 gm PO ONCE PRN; Protocol PRN Reason: Hypoglycemia Protocol Glipizide (Glucotrol Xl) 10 mg PO BRK [facility] Last Admin: 07/06/18 09:19 Dose: 10 mg Glucagon (Glucagen Diagnostic Kit) 0 mg IM STAT PRN; Protocol PRN Reason: Hypoglycemia Protocol Lactulose (Enulose) 20 gm PO TID [facility] Last Admin: 07/07/18 17:17 Dose: Not Given Lactulose (Generlac) 200 gm IN Q8H [facility] Last Admin: 07/07/18 12:46 Dose: 200 gm Metformin HCl (Glucophage) 850 mg PO BRKDIN [facility] Last Admin: 07/07/18 08:58 Dose: Not Given Ondansetron HCl (Zofran Inj) 4 mg IVP Q4 PRN PRN Reason: Nausea/Vomiting Last Admin: 07/07/18 02:02 Dose: 4 mg Rifaximin (Xifaxan) 550 mg PO BID [facility]; Protocol Last Admin: 07/07/18 17:18 Dose: Not Given - Labs Labs: 07/07/18 19:52 07/07/18 02:40 PT 21.4 Seconds (9.8-13.1) H 07/07/18 19:52 INR 1.9 07/07/18 19:52 APTT 34.4 Seconds (25.6-37.1) 07/07/18 19:52 Assessment and Plan - Assessment and Plan (Free Text) Assessment: Hepatic encephalopathy Lactulose Rifaximin UGI bleed PPI monitor H&H As per GI JHONATHAN Dehydration (hepatorenal syndrome??) IVF repeat albs Painless obstructive jaundice Liver mass HCC vs cholangiocarcinoma needs ECP EUS GI Oncology D/W family Arranging transfer to [place]
[2018-07-07] MEDS ORDERED: Sodium Chloride 0.45% 1,000 ML IV SCH (21:45)
[2018-07-07 21:47] LABS: LYMPHOCYTE 3 % (20-50); MONOCYTE 4 % (0-10); MYELOCYTE 1 % (0-0); NEUTROPHIL 92 % (42-75); PLATELET ESTIMATE NORMAL (NORMAL); TOTAL CELLS COUNTED 100
[2018-07-07 21:49] LABS: ANISOCYTOSIS MODERATE; HYPOCHROMIC SLIGHT; MICROCYTOSIS SLIGHT
[2018-07-07 21:50] LABS: OVALOCYTES SLIGHT; SCHISTOCYTES SLIGHT; TARGET CELLS MODERATE
[2018-07-07 21:51] LABS: TEARDROP CELLS SLIGHT
[2018-07-08 03:37] LABS: HEMOGLOBIN A 97.1 Percent (>96.0); HEMOGLOBIN A2 1.9 Percent (1.8-3.5)
[2018-07-08 06:13] LABS: BASO # 0.1 K/uL (0.0-0.2); BASO % 0.7 % (0.0-2.0); HEMOGLOBIN 10.9 g/dL (12.0-18.0); LYMPH # 0.4 K/uL (1.0-4.3); LYMPH % 4.9 % (20.0-40.0); MEAN CELL VOLUME 77.7 fl (80.0-94.0); MEAN CORPUSCULAR HEMOGLOBIN 26.4 pg (27.0-31.0); MONO # 0.5 K/uL (0.0-0.8); MONO % 5.9 % (0.0-10.0); NEUT % 88.5 % (50.0-75.0); NRBC % 0.1 % (0.0-0.0); RBC 4.13 Mil/uL (4.40-5.90); RED CELL DISTRIBUTION WIDTH 22.8 % (11.5-14.5); WHITE BLOOD COUNT 9.1 K/uL (4.8-10.8)
[2018-07-08 06:43] LABS: ALB/GLOB RATIO 0.6 (1.0-2.1); ALBUMIN 2.4 g/dL (3.5-5.0); CALCIUM 8.8 mg/dL (8.4-10.2)
--- NOTE | 2018-07-08 07:58 | CP.PCM.PN ---
Subjective - Date & Time of Evaluation Date of Evaluation: 07/08/18 Time of Evaluation: 07:57 - Subjective Subjective: confused Objective - Vital Signs/Intake and Output Vital Signs (last 24 hours): Temp Pulse Resp BP Pulse Ox 98.4 F 96 H 18 98/64 L 100 07/08/18 05:09 07/08/18 05:09 07/08/18 05:09 07/08/18 05:09 07/08/18 05:09 - Medications Medications: Current Medications Albuterol/Ipratropium (Duoneb 3 Mg/0.5 Mg (3 Ml) Ud) 3 ml INH RQ4 PRN PRN Reason: Shortness of Breath Dextrose (Dextrose 50% Inj) 0 ml IV STAT PRN; Protocol PRN Reason: Hypoglycemia Protocol Last Admin: 07/06/18 23:04 Dose: 50 ml Dextrose (Glutose 15) 0 gm PO ONCE PRN; Protocol PRN Reason: Hypoglycemia Protocol Glipizide (Glucotrol Xl) 10 mg PO BRK [facility] Last Admin: 07/06/18 09:19 Dose: 10 mg Glucagon (Glucagen Diagnostic Kit) 0 mg IM STAT PRN; Protocol PRN Reason: Hypoglycemia Protocol Sodium Chloride (Sodium Chloride 0.45%) 1,000 mls @ 75 mls/hr IV .[id number] [facility] Stop: 07/08/18 21:44 Last Admin: 07/07/18 23:04 Dose: 75 mls/hr Lactulose (Generlac) 200 gm [place] Q8H [facility] Last Admin: 07/07/18 12:46 Dose: 200 gm Lactulose (Enulose) 20 gm PO Q6H [facility] Last Admin: 07/08/18 04:37 Dose: 20 gm Metformin HCl (Glucophage) 850 mg PO BRKDIN [facility] Last Admin: 07/07/18 08:58 Dose: Not Given Ondansetron HCl (Zofran Inj) 4 mg IVP Q4 PRN PRN Reason: Nausea/Vomiting Last Admin: 07/07/18 02:02 Dose: 4 mg Pantoprazole Sodium (Protonix Inj) 40 mg IVP Q12 [facility] Last Admin: 07/07/18 23:04 Dose: 40 mg Rifaximin (Xifaxan) 550 mg PO BID [facility]; Protocol Last Admin: 07/07/18 17:18 Dose: Not Given - Labs Labs: 07/08/18 04:25 07/08/18 04:25 PT 21.4 Seconds (9.8-13.1) H 07/07/18 19:52 INR 1.9 07/07/18 19:52 APTT 34.4 Seconds (25.6-37.1) 07/07/18 19:52 - Head Exam Head Exam: NORMOCEPHALIC - Eye Exam Eye Exam: Scleral icterus - Respiratory Exam Respiratory Exam: Clear to Ausculation Bilateral, NORMAL BREATHING PATTERN - Cardiovascular Exam Cardiovascular Exam: REGULAR RHYTHM - GI/Abdominal Exam GI & Abdominal Exam: Soft, Normal Bowel Sounds Assessment and Plan - Assessment and Plan (Free Text) Assessment: 73 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
[2018-07-08 08:39] VITALS: RESP 20
--- NOTE | 2018-07-08 09:39 | CP.PCM.PN ---
Subjective - Date & Time of Evaluation Date of Evaluation: 07/08/18 Time of Evaluation: 09:00 - Subjective Subjective: NO COMPLAINTS Objective - Vital Signs/Intake and Output Vital Signs (last 24 hours): Temp Pulse Resp BP Pulse Ox 97.9 F 109 H 20 137/74 99 07/08/18 08:38 07/08/18 08:38 07/08/18 08:38 07/08/18 08:38 07/08/18 08:38 - Medications Medications: Current Medications Albuterol/Ipratropium (Duoneb 3 Mg/0.5 Mg (3 Ml) Ud) 3 ml INH RQ4 PRN PRN Reason: Shortness of Breath Dextrose (Dextrose 50% Inj) 0 ml IV STAT PRN; Protocol PRN Reason: Hypoglycemia Protocol Last Admin: 07/06/18 23:04 Dose: 50 ml Dextrose (Glutose 15) 0 gm PO ONCE PRN; Protocol PRN Reason: Hypoglycemia Protocol Glipizide (Glucotrol Xl) 10 mg PO BRK [facility] Last Admin: 07/06/18 09:19 Dose: 10 mg Glucagon (Glucagen Diagnostic Kit) 0 mg IM STAT PRN; Protocol PRN Reason: Hypoglycemia Protocol Sodium Chloride (Sodium Chloride 0.45%) 1,000 mls @ 75 mls/hr IV .[id number] [facility] Stop: 07/08/18 21:44 Last Admin: 07/07/18 23:04 Dose: 75 mls/hr Lactulose (Generlac) 200 gm [place] Q8H [facility] Last Admin: 07/07/18 12:46 Dose: 200 gm Lactulose (Enulose) 20 gm PO Q6H [facility] Last Admin: 07/08/18 04:37 Dose: 20 gm Metformin HCl (Glucophage) 850 mg PO BRKDIN [facility] Last Admin: 07/07/18 08:58 Dose: Not Given Ondansetron HCl (Zofran Inj) 4 mg IVP Q4 PRN PRN Reason: Nausea/Vomiting Last Admin: 07/07/18 02:02 Dose: 4 mg Pantoprazole Sodium (Protonix Inj) 40 mg IVP Q12 [facility] Last Admin: 07/07/18 23:04 Dose: 40 mg Rifaximin (Xifaxan) 550 mg PO BID [facility]; Protocol Last Admin: 07/07/18 17:18 Dose: Not Given - Labs Labs: 07/08/18 04:25 07/08/18 04:25 PT 21.4 Seconds (9.8-13.1) H 07/07/18 19:52 INR 1.9 07/07/18 19:52 APTT 34.4 Seconds (25.6-37.1) 07/07/18 19:52 - Respiratory Exam Respiratory Exam: Clear to Ausculation Bilateral - Cardiovascular Exam Cardiovascular Exam: REGULAR RHYTHM, +S1, +S2 - Back Exam Additional comments: NO SIGNIFICANT LE EDEMA - Additional Findings Additional findings: RESEARCH ENGINEER NOTE WITH HEPATIC ENCEPHALOPATHY AND AMMONIA LEVEL OF 200 PATIENT TREATED WITH LACTULOSE AND VIT K AND AMMONIA LEVEL IS 81 THIS AM PRODUCTION CONTROL CLERK'S NOTE REVIEWED Assessment and Plan - Assessment and Plan (Free Text) Assessment: LIVER TUMOR WITH ELEVATED LFT AND HEPATIC ENCEPHALOPATHY CAD HYPERTENSION TYPE 2 DM Plan: FOR TRANSFER TO [facility] CONTINUE LACTULOSE AND IV FLUIDS
[2018-07-08] MEDS ORDERED: Sodium Chloride 0.45% 1,000 ML IV SCH (10:54)
[2018-07-08] MEDS: Potassium CL 10 MEQ/50 ML 50 ML IVPB SCH ×3 (11:40→13:30)
[2018-07-08 12:25] VITALS: BP 96/58; PULSE 98; TEMP 97.6; O2SAT 97
--- NOTE | 2018-07-08 14:25 | CP.PCM.CON ---
History of Present Illness - History of Present Illness History of Present Illness: I came to see the patient and the son at the bedside and told me the patient about to be transferred to [facility] shortly therefore no consultation was done because he is leaving any moment Past Patient History - Infectious Disease Hx of Infectious Diseases: None - Past Medical History & Family History Past Medical History?: Yes - Past Social History Smoking Status: Former Smoker - CARDIAC Hx Cardiac Disorders: Yes Hx Hypercholesterolemia: Yes Hx Hypertension: Yes - PULMONARY Hx Respiratory Disorders: No - NEUROLOGICAL Hx Neurological Disorder: No - HEENT Hx HEENT Problems: No - RENAL Hx Chronic Kidney Disease: No - ENDOCRINE/METABOLIC Hx Endocrine Disorders: Yes Hx Diabetes Mellitus Type 2: Yes - HEMATOLOGICAL/ONCOLOGICAL Hx Blood Disorders: No - INTEGUMENTARY Hx Dermatological Problems: No - MUSCULOSKELETAL/RHEUMATOLOGICAL Hx Musculoskeletal Disorders: No Hx Falls: No - GASTROINTESTINAL Hx Liver Failure: Yes (LIVER DISEASE) - GENITOURINARY/GYNECOLOGICAL Hx Genitourinary Disorders: No - PSYCHIATRIC Hx Psychophysiologic Disorder: No Hx Substance Use: No - SURGICAL HISTORY Hx Surgeries: Yes Hx Cholecystectomy: Yes - ANESTHESIA Hx Anesthesia: Yes Hx Anesthesia Reactions: No Hx Malignant Hyperthermia: No Has any member of the family had a problem w/ anesthesia?: No Meds Allergies/Adverse Reactions: Allergies Allergy/AdvReac Type Severity Reaction Status Date / Time No Known Allergies Allergy Verified 07/04/18 16:19 - Medications Medications: Current Medications Albuterol/Ipratropium (Duoneb 3 Mg/0.5 Mg (3 Ml) Ud) 3 ml INH RQ4 PRN PRN Reason: Shortness of Breath Dextrose (Dextrose 50% Inj) 0 ml IV STAT PRN; Protocol PRN Reason: Hypoglycemia Protocol Last Admin: 07/06/18 23:04 Dose: 50 ml Dextrose (Glutose 15) 0 gm PO ONCE PRN; Protocol PRN Reason: Hypoglycemia Protocol Glipizide (Glucotrol Xl) 10 mg PO BRK [facility] Last Admin: 07/06/18 09:19 Dose: 10 mg Glucagon (Glucagen Diagnostic Kit) 0 mg IM STAT PRN; Protocol PRN Reason: Hypoglycemia Protocol Sodium Chloride (Sodium Chloride 0.45%) 1,000 mls @ 100 mls/hr IV .Q10H [facility]ANGEL Stop: 07/08/18 21:44 Last Admin: 07/08/18 11:42 Dose: 100 mls/hr Lactulose (Enulose) 20 gm PO Q6H [facility] Last Admin: 07/08/18 10:33 Dose: 20 gm Metformin HCl (Glucophage) 850 mg PO BRKDIN [facility] Last Admin: 07/07/18 08:58 Dose: Not Given Ondansetron HCl (Zofran Inj) 4 mg IVP Q4 PRN PRN Reason: Nausea/Vomiting Last Admin: 07/07/18 02:02 Dose: 4 mg Pantoprazole Sodium (Protonix Inj) 40 mg IVP Q12 [facility] Last Admin: 07/08/18 10:34 Dose: 40 mg Rifaximin (Xifaxan) 550 mg PO BID [facility]; Protocol Last Admin: 07/08/18 10:34 Dose: 550 mg Results - Vital Signs Recent Vital Signs: Last Vital Signs Temp 97.6 F 07/08/18 12:24 Pulse 98 H 07/08/18 12:24 Resp 20 07/08/18 12:24 BP 96/58 L 07/08/18 12:24 Pulse Ox 97 07/08/18 12:24 - Labs Result Diagrams: 07/08/18 04:25 07/08/18 04:25 Labs: Laboratory Results - last 24 hr 07/06/18 07/07/18 07/07/18 04:10 16:06 19:52 WBC 8.0 RBC 4.30 L Hgb 11.2 L Hct 33.4 L MCV 77.7 L MCH 26.1 L MCHC 33.7 RDW 23.3 H Plt Count 197 MPV 8.5 Neut % (Auto) 87.8 H Lymph % (Auto) 4.0 L [place] % (Auto) 7.0 Eos % (Auto) 0.1 Baso % (Auto) 1.1 Neut # (Auto) 7.0 Lymph # (Auto) 0.3 L [place] # (Auto) 0.6 Eos # (Auto) 0.0 Baso # (Auto) 0.1 Neutrophils % (Manual) 92 H Lymphocytes % (Manual) 3 L Monocytes % (Manual) 4 Myelocytes % 1 H Platelet Estimate Normal Hypochromasia (manual) Slight Anisocytosis (manual) Moderate Microcytosis (manual) Slight Target Cells Moderate Tear Drop Cells Slight Ovalocytes Slight Schistocytes Slight Hemoglobin A 97.1 Hemoglobin A2 1.9 Hemoglobin C 0.0 Hemoglobin F () <1.0 Hemoglobin S 0.0 Variant Hemoglobin 0.0 Hemoglobinopathy Interp See note PT INR APTT Sodium Potassium Chloride Carbon Dioxide Anion Gap BUN Creatinine Est GFR ( Amer) Est GFR (Non-Af Amer) POC Glucose (mg/dL) 171 H Random Glucose Calcium Phosphorus Magnesium Total Bilirubin AST ALT Alkaline Phosphatase Ammonia Total Protein Albumin Globulin Albumin/Globulin Ratio 07/07/18 07/07/18 07/08/18 19:52 21:27 04:25 WBC RBC Hgb Hct MCV MCH MCHC RDW Plt Count MPV Neut % (Auto) Lymph % (Auto) [place] % (Auto) Eos % (Auto) Baso % (Auto) Neut # (Auto) Lymph # (Auto) [place] # (Auto) Eos # (Auto) Baso # (Auto) Neutrophils % (Manual) Lymphocytes % (Manual) Monocytes % (Manual) Myelocytes % Platelet Estimate Hypochromasia (manual) Anisocytosis (manual) Microcytosis (manual) Target Cells Tear Drop Cells Ovalocytes Schistocytes Hemoglobin A Hemoglobin A2 Hemoglobin C Hemoglobin F () Hemoglobin S Variant Hemoglobin Hemoglobinopathy Interp PT 21.4 H INR 1.9 APTT 34.4 Sodium 140 Potassium 3.3 L Chloride 109 H Carbon Dioxide 18 L Anion Gap 16 BUN 61 H Creatinine 1.8 H Est GFR ( Amer) 45 Est GFR (Non-Af Amer) 37 POC Glucose (mg/dL) 194 H Random Glucose 164 H Calcium 8.8 Phosphorus 3.3 Magnesium 2.4 H Total Bilirubin 16.4 H AST 176 H ALT 113 H Alkaline Phosphatase 317 H Ammonia Total Protein 6.4 Albumin 2.4 L Globulin 3.9 Albumin/Globulin Ratio 0.6 L 07/08/18 07/08/18 07/08/18 04:25 04:25 05:19 WBC 9.1 RBC 4.13 L Hgb 10.9 L Hct 32.1 L MCV 77.7 L MCH 26.4 L MCHC 34.0 RDW 22.8 H Plt Count 167 MPV 9.0 Neut % (Auto) 88.5 H Lymph % (Auto) 4.9 L [place] % (Auto) 5.9 Eos % (Auto) 0.0 Baso % (Auto) 0.7 Neut # (Auto) 8.0 H Lymph # (Auto) 0.4 L [place] # (Auto) 0.5 Eos # (Auto) 0.0 Baso # (Auto) 0.1 Neutrophils % (Manual) Lymphocytes % (Manual) Monocytes % (Manual) Myelocytes % Platelet Estimate Hypochromasia (manual) Anisocytosis (manual) Microcytosis (manual) Target Cells Tear Drop Cells Ovalocytes Schistocytes Hemoglobin A Hemoglobin A2 Hemoglobin C Hemoglobin F () Hemoglobin S Variant Hemoglobin Hemoglobinopathy Interp PT INR APTT Sodium Potassium Chloride Carbon Dioxide Anion Gap BUN Creatinine Est GFR ( Amer) Est GFR (Non-Af Amer) POC Glucose (mg/dL) 181 H Random Glucose Calcium Phosphorus Magnesium Total Bilirubin AST ALT Alkaline Phosphatase Ammonia 81 H D Total Protein Albumin Globulin Albumin/Globulin Ratio 07/08/18 07/08/18 11:26 11:33 WBC RBC Hgb Hct MCV MCH MCHC RDW Plt Count MPV Neut % (Auto) Lymph % (Auto) [place] % (Auto) Eos % (Auto) Baso % (Auto) Neut # (Auto) Lymph # (Auto) [place] # (Auto) Eos # (Auto) Baso # (Auto) Neutrophils % (Manual) Lymphocytes % (Manual) Monocytes % (Manual) Myelocytes % Platelet Estimate Hypochromasia (manual) Anisocytosis (manual) Microcytosis (manual) Target Cells Tear Drop Cells Ovalocytes Schistocytes Hemoglobin A Hemoglobin A2 Hemoglobin C Hemoglobin F () Hemoglobin S Variant Hemoglobin Hemoglobinopathy Interp PT INR APTT Sodium Potassium Chloride Carbon Dioxide Anion Gap BUN Creatinine Est GFR ( Amer) Est GFR (Non-Af Amer) POC Glucose (mg/dL) 179 H Random Glucose Calcium Phosphorus Magnesium Total Bilirubin AST ALT Alkaline Phosphatase Ammonia 90 H* Total Protein Albumin Globulin Albumin/Globulin Ratio
--- NOTE | 2018-07-08 15:59 | CARD ---
APPROVED REPORT Date of service: 07/07/2018 EKG Measurement Heart [id number] <Conclusion> Sinus tachycardia Left axis deviation Inferior infarct, age undetermined Anterolateral infarct, age undetermined Abnormal ECG
--- NOTE | 2018-07-08 16:22 | CP.PCM.PN ---
Subjective - Date & Time of Evaluation Date of Evaluation: 07/08/18 Time of Evaluation: 22:22 - Subjective Subjective: Above noted Multiple calls last night and this AM\ Transfer to [facility] Objective - Vital Signs/Intake and Output Vital Signs (last 24 hours): Temp Pulse Resp BP Pulse Ox 97.6 F 98 H 20 96/58 L 97 07/08/18 12:24 07/08/18 12:24 07/08/18 12:24 07/08/18 12:24 07/08/18 12:24 - Labs Labs: 07/08/18 04:25 07/08/18 04:25 PT 21.4 Seconds (9.8-13.1) H 07/07/18 19:52 INR 1.9 07/07/18 19:52 APTT 34.4 Seconds (25.6-37.1) 07/07/18 19:52 - Respiratory Exam Respiratory Exam: NORMAL BREATHING PATTERN - Cardiovascular Exam Cardiovascular Exam: REGULAR RHYTHM - GI/Abdominal Exam GI & Abdominal Exam: Normal Bowel Sounds Assessment and Plan - Assessment and Plan (Free Text) Assessment: Hepatic encephalopathy Lactulose Rifaximin UGI bleed PPI monitor H&H As per GI JHONATHAN Dehydration (hepatorenal syndrome??) IVF repeat albs Painless obstructive jaundice Liver mass HCC vs cholangiocarcinoma needs ECP EUS GI Oncology D/W family Transfer to [facility]
== END 2018-07-08 14:54 | disposition short-term general hospital (02) | DRG 444 ==
LOC: H.ER 16:10 → H.ERHOLD 18:12 → H.TEL 20:43
PROVIDERS: ADMIT Family Medicine Geriatric Medicine; ATTEND Family Medicine Geriatric Medicine
DX: K83.1 Obstruction of bile duct (principal); K76.7 Hepatorenal syndrome; R16.0 Hepatomegaly, not elsewhere classified; D68.9 Coagulation defect, unspecified; K92.2 Gastrointestinal hemorrhage, unspecified; N17.9 Acute kidney failure, unspecified; K72.90 Hepatic failure, unspecified without coma; E86.0 Dehydration; E87.6 Hypokalemia; E11.9 Type 2 diabetes mellitus without complications; E78.00 Pure hypercholesterolemia, unspecified; E78.5 Hyperlipidemia, unspecified; I10 Essential (primary) hypertension; I25.10 Atherosclerotic heart disease of native coronary artery without angina pectoris; Z79.02 Long term (current) use of antithrombotics/antiplatelets; Z79.82 Long term (current) use of aspirin; Z87.891 Personal history of nicotine dependence; Z90.49 Acquired absence of other specified parts of digestive tract; K80.20 Calculus of gallbladder without cholecystitis without obstruction; Z79.84 Long term (current) use of oral hypoglycemic drugs; Z79.899 Other long term (current) drug therapy; R79.89 Other specified abnormal findings of blood chemistry; D64.9 Anemia, unspecified